=== PATIENT | male | born 1955 | race Caucasian/White ===

== ENCOUNTER 2017-01-07 06:06 | Inpatient (IN) | payer BC ==
[2017-01-06 10:12] VITALS: BMI 28.1
[~2017-01-07 06:06] MED LIST: ALPRAZolam 0.25 MG TAB PO PRN; ALPRAZolam 0.5 MG TAB PO PRN; ASPIRIN 325 MG TAB PO STA; ATORVASTATIN 80 MG TAB PO STA; NITROGLYCERIN SL TABS 0.4 MG TAB SUBLINGUAL PRN; SODIUM CHLORIDE 0.9% 1,000 ML in EMPTY BAG 1 BAG IV ONE
[2017-01-07] MEDS ORDERED: SODIUM CHLORIDE 0.9% 1,000 ML IV ONE (06:35)
[2017-01-07] MEDS ORDERED: LIDOCAINE 2% INJ 20 MG/ML (20 ML MDV) ONE (07:15)
[2017-01-07] MEDS ORDERED: MIDAZOLAM 2 MG/2 ML VIAL ONE (07:32)
[2017-01-07] MEDS ORDERED: fentaNYL (PF) 50 MCG/ML 2 ML AMP ONE (07:33)
[2017-01-07] MEDS: MIDAZOLAM 2 MG/2 ML VIAL IVP ONE ×2 (07:35→08:00)
[2017-01-07] MEDS ORDERED: LIDOCAINE 2% INJ 20 MG/ML SQ ONE (07:35)
[2017-01-07] MEDS ORDERED: fentaNYL (PF) 50 MCG/ML 2 ML AMP IV ONE (07:36)
[2017-01-07] MEDS ORDERED: BIVALIRUDIN BOLUS 250 MG/50 ML IV ONE (07:55)
[2017-01-07] MEDS ORDERED: BIVALIRUDIN 250 MG in SODIUM CHLORIDE 0.9% 50 ML IV ONE (08:10)
--- NOTE | 2017-01-07 08:11 | CC ---
DATE OF SERVICE: INDICATION: Unstable angina. PROCEDURE NOTE: After obtaining informed consent, left heart catheterization and coronary angiogram were performed via the right femoral artery using standard Stacy catheters. Patient tolerated the procedure well without any obvious immediate complications. FINDINGS: 1. HEMODYNAMICS: Left ventricular end-diastolic pressure is 14 to 16 mm. There is no significant gradient across the aortic valve. 2. LEFT VENTRICULOGRAM: Left ventriculogram was not performed. 3. ANGIOGRAPHIC DATA: LEFT MAIN CORONARY ARTERY: Left main coronary artery appears calcified but is free of stenosis. It divides into left anterior descending coronary artery and circumflex coronary artery. LAD shows a 95% focal stenosis in its midportion just proximal to the third diagonal branch. The first and second diagonal branches are free of significant stenosis. There is a mild atherosclerotic plaque in the proximal LAD also. Circumflex coronary artery is a nondominant vessel, shows a 50% to 60% stenosed in its ostial portion and 40% to 50% stenosed in its midportion. Right coronary artery is a large dominant vessel and is free of significant stenosis. CONCLUSION: A 90% stenosis involving mid left anterior descending artery with an ostial circumflex coronary artery disease that is a nondominant vessel. I reviewed angiographic data with the patient and discuss treatment options and I had Dr. Benz, the on-call technology architect review the angiographic data. The plan at this stage is to proceed with angioplasty of mid LAD, understanding that it is both complex and high risk given the heavily calcified vessel and if patient does well with this, will manage him medically and see how his symptoms evolve.
[2017-01-07] MEDS ORDERED: NITROGLYCERIN SL TABS 0.4 MG TAB SUBLINGUAL PRN ×2 (08:16→17:39)
[2017-01-07] MEDS ORDERED: MAG HYDROX/AL HYDROX/SIMETH 30 ML CUP PO PRN (08:16)
[2017-01-07] MEDS ORDERED: ATROPINE SULFATE 0.1 MG/ML 10ML SYRINGE IV PRN (08:16)
[2017-01-07] MEDS ORDERED: RX INFO: IV CONTRAST WAS GIVEN 1 EACH MISC MISCELLANE PRN (08:16)
[2017-01-07] MEDS ORDERED: ZOLPIDEM 5 MG TAB PO PRN (08:16)
[2017-01-07] MEDS ORDERED: IOHEXOL 350 MG/ML 100 ML BOTTLE INJ ONE (08:25)
[2017-01-07] MEDS ORDERED: SODIUM CHLORIDE 0.9% 1,000 ML IV SCH (08:30)
[2017-01-07] MEDS ORDERED: HEPARIN SODIUM,PORCINE 5,000 UNIT/ML 1 ML VIAL IV PRN (08:53)
--- NOTE | 2017-01-07 09:18 | PTCA ---
DATE OF SERVICE: 01/07/2017 PERFORMING PHYSICIAN: Gilbert Benz MD, customer support analyst. PROCEDURE PERFORMED: Attempted balloon angioplasty of the proximal left anterior descending artery. INDICATION: This is a pleasant, 61-year-old gentleman who sees Dr. Villalobos as an outpatient who was experiencing chest discomfort consistent with unstable angina. He underwent a heart catheterization by Dr. Villalobos and was found to have a critical proximal LAD disease, appeared to be in the range of 99% with also intermediate disease involving the left circumflex in the proximal and midportion. The decision was made toward percutaneous coronary intervention of the LAD lesion. APPROACH: Right common femoral artery. COMPLICATIONS: None. LEVEL OF SEDATION: Moderate with a duration of sedation of about 20 minutes. PROCEDURE DESCRIPTION: After diagnostic heart catheterization was performed by Dr. Villalobos and after reviewing the angiogram, we decided to pursue with an intervention on the LAD. Anticoagulation was initiated using Angiomax. Subsequently, I took an XB35 LAD guide and the left main was engaged. A whisper wire was used to wire the left anterior descending artery. Subsequently, I tried to advance 2.5 x 12 mm balloon across the proximal LAD just proximal to the lesion and I was unable to. The balloon did not even reach the lesion. That area proximal to the lesion was tortuous and heavily calcified. At that point, I decided to abort the procedure and stop and send the patient to have bypass surgery. CONCLUSION: Attempted balloon angioplasty of a critical proximal left anterior descending artery , heavily calcified and eccentric lesion. POSTPROCEDURE MANAGEMENT: 1. We will discuss with the patient the option of coronary artery bypass grafting. 2. Keeping the patient overnight in the hospital. 3. Follow up with the patient.
[2017-01-07] MEDS ORDERED: ACETAMINOPHEN TAB 325 MG TAB PO STA (09:26)
[2017-01-07 09:42] LABS: Basophils % (A) 1 %; CH 33.3; CHCM 34.6; Eosinophils # (A) 0.2 k/uL (0-0.7); Eosinophils % (A) 3 %; HCT 39.5 % (39.0-53.0); HDW 2.52; HGB 13.5 gm/dL (13.0-17.5); Luc # (Auto) 0.14; Luc % (Auto) 3; Lymphocytes # (A) 1.8 k/uL (1.0-4.8); Lymphocytes % (A) 36 %; MCH 33.1 pg (25.0-35.0); MCHC 34.3 g/dL (31.0-37.0); MCV 96.6 fL (80.0-100.0); Mean Platelet Volume 7.3; Monocytes # (A) 0.3 k/uL (0-1.0); Monocytes % (A) 6 %; Neutrophils # (A) 2.6 k/uL (1.3-7.7); Neutrophils % (A) 52 %; RBC 4.09 m/uL (4.30-5.90); RDW 12.7 % (11.5-15.5); WBC (Perox) 5.22
[2017-01-07 09:52] LABS: INR 1.3 (<1.1); Partial Thromboplastin Time 40.6 sec (22.0-30.0); Prothrombin Time 12.6 sec (9.0-12.0)
[2017-01-07] MEDS: HEPARIN SODIUM,PORCINE/D5W PMX 25,000 UNIT in DEXTROSE/WATER 1 500ML.BAG IV SCH ×2 (10:44→10:52)
[2017-01-07] MEDS: HYDROcodone/APAP 5-325MG 1 EACH TAB PO PRN (13:37)
[2017-01-07] MEDS ORDERED: KETOROLAC 30 MG/ML 1 ML VIAL IVP PRN (14:42)
[2017-01-07] MEDS ORDERED: MD COMMUNICATION TO PHARMACY 1 EACH MISC PO ONE ×4 (14:43)
--- NOTE | 2017-01-07 15:04 | P.GSCN ---
History of Present Illness Consult date: 01/07/17 Reason for Consult: evaluation for CABG Requesting physician: Vishnu Villalobos History of present illness: Patient is a 61-year-old gentleman with strong family history of premature coronary artery disease with recent episode of chest pain initially evaluated at the [facility] where he was ruled out. Patient had seen Dr. Medina for follow-up as his primary care was out of town. Patient was referred to Dr. Villalobos. Patient underwent cardiac catheterization today that showed significant mid LAD disease. PTCA stenting was attempted but was not successful in view of heavy calcification. Cardiothoracic surgical consult was called. Review of Systems - Cardiovascular Reports high blood pressure - Musculoskeletal Reports low back pain - Neurological Neurologic Comment(s): Anxiety Past Medical History Past Medical History: Chest Pain / Angina, Hyperlipidemia, Hypertension (recent ) Additional Past Medical History / Comment(s): chest pressure, Was at [facility] ER & overnight Dec 2016 nausea and lightheadedness-B/p 255/165,abn stress test History of Any Multi-Drug Resistant Organisms: None Reported Past Surgical History: Orthopedic Surgery Additional Past Surgical History / Comment(s): right knee Past Anesthesia/Blood Transfusion Reactions: No Reported Reaction Additional Past Anesthesia/Blood Transfusion Reaction / Comm: no hx blood transfusion Past Psychological History: No Psychological Hx Reported Smoking Status: Never smoker Past Alcohol Use History: Occasional Past Drug Use History: None Reported - Past Family History Mother Family Medical History: Dementia Additional Family Medical History / Comment(s): at age 95 Father Family Medical History: Cancer Additional Family Medical History / Comment(s): at age 59 Brother(s) Family Medical History: Coronary Artery Disease (CAD), CVA/TIA Additional Family Medical History / Comment(s): Brothers x2 CABG Sister(s) Family Medical History: CVA/TIA Medications and Allergies Home Medications Medication Instructions Recorded Confirmed Type Aspirin 81 mg PO DAILY 05/15/16 01/07/17 History Cetirizine HCl [Zyrtec] 10 mg PO DAILY 05/15/16 01/07/17 History ALPRAZolam [Xanax] 0.25 mg PO TID PRN 01/06/17 01/07/17 History Atorvastatin (Unk Dose) 10 mg PO DAILY 01/06/17 01/07/17 History Nitroglycerin Sl Tabs [Nitrostat] 0.4 mg SUBLINGUAL Q5M PRN 01/06/17 01/06/17 History Atenolol [Tenormin] 25 mg PO DAILY 01/07/17 01/07/17 History Isosorbide Mononitrate ER [Imdur] 1 tab PO DAILY 01/07/17 01/07/17 History LORazepam [Ativan] 0.5 mg PO BID PRN 01/07/17 01/07/17 History Allergies Allergy/AdvReac Type Severity Reaction Status Date / Time No Known Allergies Allergy Verified 01/06/17 10:02 Surgical - Exam Vital Signs Temp Pulse Resp BP Pulse Ox 97.9 F 59 L 16 115/73 93 L 01/07/17 06:26 01/07/17 06:26 01/07/17 06:26 01/07/17 06:26 01/07/17 06:26 - Rectum Deferred Patient has a negative modified Derek's test on the left side. He has no varicose veins in his lower extremities. No epigastric hernia. Results - Labs Comments: Creatinine done as an outpatient is 0.7. 01/07/17 09:32 Abnormal Lab Results - Last 24 Hours (Table) 01/07/17 01/07/17 Range/Units 09:32 09:32 RBC 4.09 L (4.30-5.90) m/uL PT 12.6 H (9.0-12.0) sec APTT 40.6 H (22.0-30.0) sec - Imaging Additional studies: 2-D echo performed at Dr. Villalobos's office on 01/05/2017 shows an ejection fraction of 50-55% with mild concentric left ventricular hypertrophy. There is hypokinesis of the septum at the base. Moderate dilatation left atrium. Mild mitral valve regurgitation with no other significant valvular abnormalities. Cardiac catheterization performed today showed a calcified proximal LAD with severe stenosis after the takeoff of several large diagonal arteries. The circumflex artery is a small system with moderate stenosis. RCA has a mid plaque with no significant stenosis. Assessment and Plan Plan: 61's old gentleman with significant LAD disease with unsuccessful PTCA attempt. I had a lengthy discussion with the patient in presence of his and brother. Decision was made to proceed with plans for off-pump coronary artery bypass grafting to the LAD in AM 01/08/2017. After discussing the case with cardiology, no plans to bypass the small circumflex branch that could be stented in the future if clinically significant. Again the risks benefits and alternative were discussed with the patient and the family they all understood them and agreed to proceed Thank you for the privilege of this consult
[2017-01-07 15:29] LABS: Basophils % (A) 1 %; CH 33.6; CHCM 34.6; Eosinophils # (A) 0.1 k/uL (0-0.7); Eosinophils % (A) 2 %; HCT 39.8 % (39.0-53.0); HDW 2.51; HGB 13.5 gm/dL (13.0-17.5); Luc # (Auto) 0.13; Luc % (Auto) 2; Lymphocytes # (A) 1.9 k/uL (1.0-4.8); Lymphocytes % (A) 29 %; MCH 33.1 pg (25.0-35.0); MCHC 33.9 g/dL (31.0-37.0); MCV 97.4 fL (80.0-100.0); Mean Platelet Volume 7.4; Monocytes # (A) 0.4 k/uL (0-1.0); Monocytes % (A) 6 %; Neutrophils % (A) 61 %; RBC 4.09 m/uL (4.30-5.90); RDW 12.6 % (11.5-15.5); WBC 6.6 k/uL (3.8-10.6); WBC (Perox) 7.53
[2017-01-07 15:40] LABS: ALT 47 U/L (21-72); AST 29 U/L (17-59); Alkaline Phosphatase 64 U/L (38-126); Anion Gap 7 mmol/L; Blood Urea Nitrogen 14 mg/dL (9-20); Calcium 8.6 mg/dL (8.4-10.2); Carbon Dioxide 24 mmol/L (22-30); Chloride 107 mmol/L (98-107); Cholesterol 156 mg/dL (<200); Glucose 105 mg/dL (74-99); HDL Cholesterol 57 mg/dL (40-60); Magnesium 1.9 mg/dL (1.6-2.3); Non-African American GFR(MDRD) >60 (>60 ml/min/1.73 sqM); Potassium 3.8 mmol/L (3.5-5.1); Sodium 138 mmol/L (137-145); Total Bilirubin 0.8 mg/dL (0.2-1.3); Triglycerides 101 mg/dL (<150)
--- NOTE | 2017-01-07 15:51 | US ---
EXAMINATION TYPE: US carotid duplex BILAT DATE OF EXAM: 01/07/2017 3:36 PM COMPARISON: NONE CLINICAL HISTORY: pre-op cabg. EXAM MEASUREMENTS: RIGHT: Peak Systolic Velocity (PSV) cm/sec ----- Right CCA: 85.7 ----- Right ICA: 98.7 ----- Right ECA: 90.0 ICA/CCA ratio: 1.2 RIGHT: End Diastole cm/sec ----- Right CCA: 27.5 ----- Right ICA: 43.5 ----- Right ECA: 0 LEFT: Peak Systolic Velocity (PSV) cm/sec ----- Left CCA: 77.5 ----- Left ICA: occluded ----- Left ECA: 108.2 ICA/CCA ratio: LEFT: End Diastole cm/sec ----- Left CCA: 7.6 ----- Left ICA: occluded ----- Left ECA: 5.7 VERTEBRALS (direction of flow): Right Vertebral: Antegrade Left Vertebral: Antegrade Findings: Atherosclerotic changes in right bulb, no stenosis on right. Left ICA occluded IMPRESSION: 1. Occlusion of the left ICA. 2. No significant hemodynamic stenosis involving the right ICA. There is mild to moderate atheroscler otic plaque. A Yellow message has been communicated to Arlene Antonio via the [employer] Critical Result system on 01/07/2017 3:48 PM, Message ID [id number].
[2017-01-07 16:07] LABS: Hepatitis B Surface Ag Index 0.06
[2017-01-07 16:13] LABS: Hepatitis B Core IgM Index 0.05
[2017-01-07 16:22] LABS: INR 1.1 (<1.1); Partial Thromboplastin Time 23.7 sec (22.0-30.0)
[2017-01-07 16:25] LABS: Hepatitis C Virus IgG Index 0.01
[2017-01-07 16:32] LABS: Hepatitis C Virus IgG Ab Negative (Negative)
--- NOTE | 2017-01-07 17:18 | P.CNPUL ---
History of Present Illness Consult date: 01/07/17 Requesting physician: Theresa Felix Reason for consult: chest pain Chief complaint: Chest pain History of present illness: This is a 61-year-old white male with rhonchi family history of premature coronary artery disease, patient had recently few episodes of lightheadedness, diaphoresis, chest pain, and he was evaluated at the [facility]. Workup in the ER was nondiagnostic, patient was discharged home. However he continued to have these episodes, and apparently his brother is a friend of Dr. Medina who recommended evaluation by Dr. Medina. After he was seen in our office , patient was referred to see Dr. Peters who saw him today, and he underwent EKG, echocardiogram, and a stress test which he failed. Patient then underwent cardiac catheterization, and he was found to have significant mid LAD disease. PTCA was attempted, but was unsuccessful. Hence cardiothoracic surgery was consulted, and the patient is scheduled to undergo CABG for one vessel disease tomorrow in a.m. by . Patient is a nonsmoker he drinks 2 rojelio per week, and he has no significant other medical history except for anginal symptoms as noted above, hypertension, hyperlipidemia, and strong family history of premature coronary artery disease. Patient was also found recently to have significant blockage in the left carotid artery and that is dressed in the near future. Presently patient is relatively asymptomatic, no cough no wheezing no shortness of breath no chest pain. Review of Systems 12 point review of systems were obtained, please refer to history of the present illness. Past Medical History Past Medical History: Chest Pain / Angina, Hyperlipidemia, Hypertension (recent ) Additional Past Medical History / Comment(s): chest pressure, Was at [facility] ER & overnight Dec 2016 nausea and lightheadedness-B/p 255/165,abn stress test History of Any Multi-Drug Resistant Organisms: None Reported Past Surgical History: Orthopedic Surgery Additional Past Surgical History / Comment(s): right knee Past Anesthesia/Blood Transfusion Reactions: No Reported Reaction Additional Past Anesthesia/Blood Transfusion Reaction / Comment(s): no hx blood transfusion Past Psychological History: No Psychological Hx Reported Smoking Status: Never smoker Past Alcohol Use History: Occasional Past Drug Use History: None Reported - Past Family History Mother Family Medical History: Dementia Additional Family Medical History / Comment(s): at age 95 Father Family Medical History: Cancer Additional Family Medical History / Comment(s): at age 59 Brother(s) Family Medical History: Coronary Artery Disease (CAD), CVA/TIA Additional Family Medical History / Comment(s): Brothers x2 CABG Sister(s) Family Medical History: CVA/TIA Medications and Allergies Home Medications Medication Instructions Recorded Confirmed Type Aspirin 81 mg PO DAILY 05/15/16 01/07/17 History Cetirizine HCl [Zyrtec] 10 mg PO DAILY 05/15/16 01/07/17 History ALPRAZolam [Xanax] 0.25 mg PO TID PRN 01/06/17 01/07/17 History Nitroglycerin Sl Tabs [Nitrostat] 0.4 mg SUBLINGUAL Q5M PRN 01/06/17 01/07/17 History Atenolol [Tenormin] 25 mg PO DAILY 01/07/17 01/07/17 History Atorvastatin [Lipitor] 10 mg PO DAILY 01/07/17 01/07/17 History Isosorbide Mononitrate ER [Imdur] 30 mg PO DAILY 01/07/17 01/07/17 History LORazepam [Ativan] 0.5 mg PO BID PRN 01/07/17 01/07/17 History Tdunozx-Zbtlthk-Vzelmh-Dime 1 applic TOPICAL DIRECTED PRN 01/07/17 01/07/17 History [Blistex Lip Ointment] Multivitamin [Men's Multi-Vitamin] 1 tab PO DAILY 01/07/17 01/07/17 History Saline Nasal [place] 1 spray EA NOSTRIL DAILY PRN 01/07/17 01/07/17 History Tetrahydrozoline 0.05% Ophth 1 drop BOTH EYES QID PRN 01/07/17 01/07/17 History [Visine Eye Drops] Allergies Allergy/AdvReac Type Severity Reaction Status Date / Time No Known Allergies Allergy Verified 01/07/17 15:47 Physical Exam Vitals: Vital Signs Temp Pulse Pulse Pulse Resp BP BP 01/07/17 16:45 65 18 121/72 01/07/17 16:00 64 18 115/72 01/07/17 15:45 62 18 109/67 01/07/17 14:45 68 18 121/73 01/07/17 14:15 71 18 124/72 01/07/17 13:45 65 18 116/69 01/07/17 13:30 62 18 112/65 01/07/17 13:15 51 L 18 117/77 01/07/17 13:00 50 L 18 96/68 01/07/17 12:30 50 L 16 117/78 01/07/17 12:00 97.1 F L 54 L 18 117/78 01/07/17 11:01 59 L 16 144/79 01/07/17 10:01 59 L 16 111/56 01/07/17 09:31 58 L 16 104/76 01/07/17 09:01 58 L 16 117/69 01/07/17 08:46 58 L 16 114/70 01/07/17 08:31 58 L 16 113/73 01/07/17 06:26 97.9 F 59 L 16 115/73 113/68 BP Pulse Ox 01/07/17 16:45 96 01/07/17 16:00 96 01/07/17 15:45 99 01/07/17 14:45 97 01/07/17 14:15 98 01/07/17 13:45 97 01/07/17 13:30 97 01/07/17 13:15 96 01/07/17 13:00 97 01/07/17 12:30 96 01/07/17 12:00 99 01/07/17 11:01 160/90 95 01/07/17 10:01 138/68 95 01/07/17 09:31 140/79 96 01/07/17 09:01 121/71 97 01/07/17 08:46 124/80 98 01/07/17 08:31 122/60 95 01/07/17 06:26 93 L Intake and Output 01/07/17 01/07/17 01/07/17 06:59 14:59 22:59 Intake Total 50 167.94 Output Total 300 Balance 50 -132.06 Intake: IV 50 167.94 Output: Urine 300 Physical Exam: Revealed a 61-year-old in no distress HEENT:[Neck is supple.] [No neck masses.] [No thyromegaly.] [No JVD.] Chest: [Clear throughout, no crackles, no rhonchi, no wheezes.] Cardiac Exam: [Normal S1 and S2, no S3 gallop, no murmur.] Abdomen: [Soft, nontender, no megaly, no rebound, no guarding, normal bowel sounds.] Extremities: [No clubbing, no edema, no cyanosis.] Neurological Exam: [No focal neurologic deficit.] Results - Laboratory Findings CBC and BMP: 01/07/17 15:03 01/07/17 15:03 PT/INR, D-dimer PT 11.0 sec (9.0-12.0) 01/07/17 15:03 INR 1.1 (<1.1) 01/07/17 15:03 Abnormal lab findings: Abnormal Labs 01/07/17 01/07/17 01/07/17 09:32 09:32 15:03 RBC 4.09 L 4.09 L PT 12.6 H APTT 40.6 H Glucose Total Protein Albumin 01/07/17 15:03 RBC PT APTT Glucose 105 H Total Protein 6.0 L Albumin 3.4 L Assessment and Plan Plan: Impression: 1 significant LAD disease with unsuccessful PTCA attempt. 2 family history of premature coronary artery disease 3 history of significant left carotid artery disease 4 history of hypertension, Recommendation: Agree with the present treatment plan,, patient does not have any underlying pulmonary obstructive lung disease, never smoked, patient will be instructed on incentive spirometry, and I will recommend a preoperative chest x-ray which will be done today. Time with Patient: Greater than 30
[2017-01-07] MEDS ORDERED: LORazepam 0.5 MG TAB PO PRN (17:39)
[2017-01-07] MEDS ORDERED: TETRAHYDROZOLINE 0.05% OPHTH DROPS 15 ML BTL BOTH EYES PRN (17:39)
[2017-01-07] MEDS ORDERED: SODIUM CHLORIDE 0.65% NASAL SPRAY 44 ML BTL NASAL PRN (17:39)
[2017-01-07] MEDS ORDERED: MENTHOL-CAMPHOR-PHENOL LIP OINTMENT 0.35 OZ TUBE TOPICAL PRN (17:39)
--- NOTE | 2017-01-07 17:42 | P.CONS ---
History of Present Illness - History of Present Illness The patient is a 61-year-old gentleman of Dr. Mccallum for whom I'm covering. This gentleman was being worked up for chest pain. Apparently patient had a episode of chest discomfort while he was driving and actually stopped at a hospital in [place]. He received nitroglycerin and Ativan and some subsequently his pain was relieved. Apparent initial workup in the emergency room and overnight was negative. Patient apparently returned back to the [place] area where he had further discomfort and saw a evp business development and was referred to Dr. Villalobos from cardiology and underwent a exercise tests which caused him further pain which subsequently led to a heart catheterization which revealed a significant mid LAD disease which was unable to be angioplastied secondary to the hardness of the blood vessel. Patient apparently scheduled for bypass surgery tomorrow. Past medical history: Patient does have a history of hyperlipidemia. The angina is recent as described above. He has also had some elevated blood pressures more recently. No history of myocardial infarction or diabetes or stroke. Patient has had previous right knee surgery. Medications: No known ALLERGIES. Patient presently taking Lipitor 10 mg daily Atenolol 25 mg daily Aspirin 81 mg daily Ativan 0.5 twice a day as needed and Isorbid mononitrate 30 mg daily. Review of systems: Basically is in the history of present illness. He denies any headaches. Presently no nausea and vomiting. No urinary or bowel symptoms. No hematuria or hematochezia. No unusual leg edema or pain. Social history: No history of smoking or any excessive alcohol intake. He lives locally in the area here. Family history: Apparently his mother had dementia age 95. Father had cancer at 59. Patient does have 2 brothers at fairly young ages that have had bypass surgery and one that has had strokes. Physical examination: Patient is alert and oriented. Well-developed. Vital signs reveal a pulse of 65 with a respirations 18 and blood pressure 121/ 72. He is 96% saturated on room air. Head and neck exam was unremarkable. No definite adenopathy or thyromegaly or definite bruits detected. Lungs were clear to auscultation. Heart tones were regular without murmurs or rubs appreciated. Abdomen is soft and nontender. No organomegaly. Scrotal and rectal exam deferred. No edema. No focal neurological deficits. Impressions and plans: Overall this 61-year-old gentleman with a strong family history and hyperlipidemia and recent hypertension with unstable angina picture and a diagnosis of coronary artery disease based on catheterization. Significant left anterior descending disease that was unable to be angioplastied. Plans are for bypass surgery. Patient is aware of risks versus benefits. Past Medical History Past Medical History: Chest Pain / Angina, Hyperlipidemia, Hypertension (recent ) Additional Past Medical History / Comment(s): chest pressure, Was at [facility] ER & overnight Dec 2016 nausea and lightheadedness-B/p 255/165,abn stress test History of Any Multi-Drug Resistant Organisms: None Reported Past Surgical History: Orthopedic Surgery Additional Past Surgical History / Comment(s): right knee Past Anesthesia/Blood Transfusion Reactions: No Reported Reaction Additional Past Anesthesia/Blood Transfusion Reaction / Comm: no hx blood transfusion Past Psychological History: No Psychological Hx Reported Smoking Status: Never smoker Past Alcohol Use History: Occasional Past Drug Use History: None Reported - Past Family History Mother Family Medical History: Dementia Additional Family Medical History / Comment(s): at age 95 Father Family Medical History: Cancer Additional Family Medical History / Comment(s): at age 59 Brother(s) Family Medical History: Coronary Artery Disease (CAD), CVA/TIA Additional Family Medical History / Comment(s): Brothers x2 CABG Sister(s) Family Medical History: CVA/TIA Medications and Allergies Home Medications Medication Instructions Recorded Confirmed Type Aspirin 81 mg PO DAILY 05/15/16 01/07/17 History Cetirizine HCl [Zyrtec] 10 mg PO DAILY 05/15/16 01/07/17 History ALPRAZolam [Xanax] 0.25 mg PO TID PRN 01/06/17 01/07/17 History Nitroglycerin Sl Tabs [Nitrostat] 0.4 mg SUBLINGUAL Q5M PRN 01/06/17 01/07/17 History Atenolol [Tenormin] 25 mg PO DAILY 01/07/17 01/07/17 History Atorvastatin [Lipitor] 10 mg PO DAILY 01/07/17 01/07/17 History Isosorbide Mononitrate ER [Imdur] 30 mg PO DAILY 01/07/17 01/07/17 History LORazepam [Ativan] 0.5 mg PO BID PRN 01/07/17 01/07/17 History Jwnymik-Kxnxhwp-Cslxai-Dime 1 applic TOPICAL DIRECTED PRN 01/07/17 01/07/17 History [Blistex Lip Ointment] Multivitamin [Men's Multi-Vitamin] 1 tab PO DAILY 01/07/17 01/07/17 History Saline Nasal [place] 1 spray EA NOSTRIL DAILY PRN 01/07/17 01/07/17 History Tetrahydrozoline 0.05% Ophth 1 drop BOTH EYES QID PRN 01/07/17 01/07/17 History [Visine Eye Drops] Allergies Allergy/AdvReac Type Severity Reaction Status Date / Time No Known Allergies Allergy Verified 01/07/17 15:47 Physical Exam Vitals: Vital Signs Temp Pulse Pulse Pulse Resp BP BP 01/07/17 16:45 65 18 121/72 01/07/17 16:00 64 18 115/72 01/07/17 15:45 62 18 109/67 01/07/17 14:45 68 18 121/73 01/07/17 14:15 71 18 124/72 01/07/17 13:45 65 18 116/69 01/07/17 13:30 62 18 112/65 01/07/17 13:15 51 L 18 117/77 01/07/17 13:00 50 L 18 96/68 01/07/17 12:30 50 L 16 117/78 01/07/17 12:00 97.1 F L 54 L 18 117/78 01/07/17 11:01 59 L 16 144/79 01/07/17 10:01 59 L 16 111/56 01/07/17 09:31 58 L 16 104/76 01/07/17 09:01 58 L 16 117/69 01/07/17 08:46 58 L 16 114/70 01/07/17 08:31 58 L 16 113/73 01/07/17 06:26 97.9 F 59 L 16 115/73 113/68 BP Pulse Ox 01/07/17 16:45 96 01/07/17 16:00 96 01/07/17 15:45 99 01/07/17 14:45 97 01/07/17 14:15 98 01/07/17 13:45 97 01/07/17 13:30 97 01/07/17 13:15 96 01/07/17 13:00 97 01/07/17 12:30 96 01/07/17 12:00 99 01/07/17 11:01 160/90 95 01/07/17 10:01 138/68 95 01/07/17 09:31 140/79 96 01/07/17 09:01 121/71 97 01/07/17 08:46 124/80 98 01/07/17 08:31 122/60 95 01/07/17 06:26 93 L Intake and Output 01/07/17 01/07/17 01/07/17 06:59 14:59 22:59 Intake Total 50 167.94 Output Total 300 Balance 50 -132.06 Intake: IV 50 167.94 Output: Urine 300 Results CBC & Chem 7: 01/07/17 15:03 01/07/17 15:03 Labs: Abnormal Lab Results - Last 24 Hours (Table) 01/07/17 01/07/17 01/07/17 Range/Units 09:32 09:32 15:03 RBC 4.09 L 4.09 L (4.30-5.90) m/uL PT 12.6 H (9.0-12.0) sec APTT 40.6 H (22.0-30.0) sec Glucose (74-99) mg/dL Total Protein (6.3-8.2) g/dL Albumin (3.5-5.0) g/dL 01/07/17 Range/Units 15:03 RBC (4.30-5.90) m/uL PT (9.0-12.0) sec APTT (22.0-30.0) sec Glucose 105 H (74-99) mg/dL Total Protein 6.0 L (6.3-8.2) g/dL Albumin 3.4 L (3.5-5.0) g/dL
[2017-01-07] MEDS ORDERED: HYDROmorphone 1 MG/ML 1 ML SYRINGE IVP PRN (17:45)
[2017-01-07] MEDS: ISOSORBIDE MONONITRATE ER 30 MG TAB.ER.24H PO SCH (18:39)
[2017-01-07 19:55] LABS: Appearance,Urine Clear (Clear); Bacteria,Urine Occasional /hpf; Bilirubin,Urine Negative (Negative); Glucose,Urine (UA) Negative (Negative); Ketones,Urine 1+ (Negative); Leukocyte Esterase,Urine Trace (Negative); Mucus,Urine Rare /hpf; Nitrite,Urine Negative (Negative); PH, Urine 6.5 (5.0-8.0); Particle Count 1641; Protein,Urine Negative (Negative); RBC,Urine 1 /hpf (0-5); Specific Gravity,Urine 1.036 (1.001-1.035); UA Billing (MACRO vs. MICRO) MICRO; Urobilinogen,Urine <2.0 mg/dL (<2.0); WBC,Urine 2 /hpf (0-5)
--- NOTE | 2017-01-07 20:56 | XR ---
EXAMINATION TYPE: XR chest 1V portable DATE OF EXAM: 01/07/2017 5:36 PM COMPARISON: NONE HISTORY: Pre-op CABG TECHNIQUE: Single frontal view of the chest is obtained. FINDINGS: There is no focal air space opacity, pleural effusion, or pneumothorax seen. The cardiac silhouette size is within normal limits. The osseous structures are intact. IMPRESSION: No acute process.
[2017-01-07 21:38] LABS: Hemoglobin A1C 5.5 % (4.2-6.1)
[2017-01-07] MEDS: MUPIROCIN 2% OINT 22 GM TUBE NASAL SCH (22:43)
[2017-01-08] MEDS: HYDROcodone/APAP 5-325MG 1 EACH TAB PO PRN (02:21)
[2017-01-08] MEDS ORDERED: CALCIUM CHLORIDE 100 MG/ML 10 ML SYRINGE IVP ONE (05:00)
[2017-01-08] MEDS ORDERED: INSULIN REGULAR 100 UNIT in SODIUM CHLORIDE 0.9% 100 ML IV ONE (05:00)
[2017-01-08] MEDS ORDERED: DEXTROSE 5% IN WATER 1,000 ML with POTASSIUM CHLORIDE 25 MEQ, SODIUM CHLORIDE 4MEQ/ML V... IV SCH ×6 (05:00)
[2017-01-08] MEDS ORDERED: SODIUM BICARB 8.4% 50 ML SYR (1 MEQ/ML) IV ONE (05:00)
[2017-01-08] MEDS ORDERED: NITROGLYCERIN-D5W PMX 25 MG/250 ML BTL IV ONE (05:00)
[2017-01-08] MEDS ORDERED: ALBUMIN HUMAN 5% 500 ML in EMPTY BAG 1 BAG IVPB ONE ×6 (05:00)
[2017-01-08] MEDS ORDERED: ceFAZolin 2 GM in SODIUM CHLORIDE 0.9% 30 ML IVPB ONE (05:00)
[2017-01-08] MEDS ORDERED: ASPIRIN 325 MG TAB PO ONE (05:00)
[2017-01-08] MEDS ORDERED: DILTIAZEM 125 MG in SODIUM CHLORIDE 0.9% 100 ML IV ONE (05:00)
[2017-01-08] MEDS ORDERED: AMINOCAPROIC ACID 5,000 MG in DEXTROSE 5% IN WATER 50 ML IV ONE ×4 (05:00)
[2017-01-08] MEDS ORDERED: NOREPINEPHRINE 4 MG in SODIUM CHLORIDE 0.9% 250 ML IV ONE (05:00)
[2017-01-08] MEDS ORDERED: PROTAMINE SULFATE 10 MG/ML 25 ML VIAL IV ONE (05:00)
[2017-01-08] MEDS ORDERED: PROTAMINE SULFATE 250 MG in EMPTY BAG 1 BAG IV ONE (05:00)
[2017-01-08] MEDS ORDERED: MANNITOL 25% 12.5 GM/50 ML VIAL IV ONE ×2 (05:00)
[2017-01-08] MEDS ORDERED: PAPAVERINE 360 MG in SODIUM CHLORIDE 0.9% 90 ML IV ONE (05:00)
[2017-01-08] MEDS ORDERED: ceFAZolin 2,000 MG in SODIUM CHLORIDE 0.9% 30 ML IVPB ONE (05:00)
[2017-01-08] MEDS ORDERED: ceFAZolin 1,000 MG in SODIUM CHLORIDE 0.9% IRRIGATIO 1,000 ML IRRIGATION ONE (05:00)
[2017-01-08] MEDS ORDERED: METOPROLOL TARTRATE 12.5 MG TAB PO ONE ×2 (05:00→21:00)
[2017-01-08] MEDS ORDERED: ALBUMIN HUMAN 25% 50 ML in EMPTY BAG 1 BAG IVPB ONE (05:00)
[2017-01-08] MEDS ORDERED: NITROGLYCERIN-D5W PMX 50 MG in DEXTROSE/WATER 1 250ML.BAG IV ONE (05:00)
[2017-01-08] MEDS ORDERED: LACTATED RINGERS 1,000 ML IV SCH (05:00)
[2017-01-08] MEDS ORDERED: HEPARIN SODIUM 1,000 UNIT/ML VIAL IV ONE (05:00)
[2017-01-08] MEDS ORDERED: HEPARIN SODIUM,PORCINE 5,000 UNIT in SODIUM CHLORIDE 0.9% 500 ML IV ONE (05:00)
[2017-01-08] MEDS ORDERED: CHLORHEXIDINE GLUCONATE 15 ML CUP MUCOUS MEM ONE (05:00)
[2017-01-08] MEDS ORDERED: PHENYLEPHRINE-0.9% NACL SYG 1 MG/10 ML SYRINGE IV ONE ×4 (05:00)
[2017-01-08] MEDS ORDERED: ATORVASTATIN 10 MG TAB PO ONE (05:00)
[2017-01-08] MEDS ORDERED: AMINOCAPROIC ACID 250 MG/ML 20 ML VIAL IV ONE (05:00)
[2017-01-08] MEDS ORDERED: MAGNESIUM SULFATE SYG 4.06 MEQ/ML SYRINGE IV ONE (05:00)
[2017-01-08] MEDS ORDERED: PROPOFOL 500 MG in EMPTY BAG 1 BAG IV ONE (05:00)
[2017-01-08] MEDS ORDERED: DEXTROSE 5% IN WATER 1,000 ML with POTASSIUM CHLORIDE 110 MEQ, MAGNESIUM SULFATE 16 MEQ... IV SCH ×5 (05:00)
[2017-01-08] MEDS ORDERED: SODIUM CHLORIDE 0.9% IRRIG 1,000 ML BTL IRRIGATION ONE (07:46)
[2017-01-08] MEDS ORDERED: MIDAZOLAM 2 MG/2 ML VIAL ONE (07:46)
[2017-01-08] MEDS ORDERED: ePHEDrine 50 MG/ML 1 ML AMP ONE (07:46)
[2017-01-08] MEDS ORDERED: VECURONIUM 10 MG VIAL IV ONE (07:46)
[2017-01-08] MEDS ORDERED: HEPARIN SODIUM 1,000 UNIT/ML VIAL ONE (07:46)
[2017-01-08] MEDS ORDERED: fentaNYL (PF) 50 MCG/ML 50 ML VIAL ONE (07:46)
[2017-01-08] MEDS ORDERED: HEPARIN SODIUM,PORCINE 10,000 UNIT/ML 1 ML VIAL ONE (07:46)
[2017-01-08] MEDS ORDERED: LIDOCAINE 2% SYG (PF) 100 MG/5 ML ONE (07:46)
[2017-01-08] MEDS ORDERED: PHENYLEPHRINE-0.9% NACL SYG 1 MG/10 ML SYRINGE ONE (07:46)
[2017-01-08] MEDS ORDERED: PROPOFOL 10 MG/ML 20 ML VIAL IV ONE (07:46)
[2017-01-08 08:22] LABS: Glucose,Whole Blood 104 mg/dL (75-99)
[2017-01-08] MEDS ORDERED: ASPIRIN 81 MG CHEW PO SCH (09:00)
[2017-01-08] MEDS ORDERED: ATENOLOL 25 MG TAB PO SCH (09:00)
[2017-01-08] MEDS ORDERED: ATORVASTATIN 10 MG TAB PO SCH (09:00)
[2017-01-08] MEDS ORDERED: LORATADINE 10 MG TAB PO SCH (09:00)
[2017-01-08 09:46] LABS: Glucose,Whole Blood 107 mg/dL (75-99)
[2017-01-08 11:03] LABS: Glucose,Whole Blood 107 mg/dL (75-99)
[2017-01-08] MEDS ORDERED: MULTIVITAMINS, THERA 1 EACH TAB PO SCH (12:00)
[2017-01-08 12:18] LABS: Glucose,Whole Blood 95 mg/dL (75-99)
[2017-01-08 12:25] LABS: Basophils % (A) 0 %; CHCM 34.7; Eosinophils # (A) 0.1 k/uL (0-0.7); Eosinophils % (A) 1 %; HCT 33.4 % (39.0-53.0); HDW 2.58; HGB 11.4 gm/dL (13.0-17.5); Luc # (Auto) 0.05; Luc % (Auto) 1; Lymphocytes # (A) 1.5 k/uL (1.0-4.8); Lymphocytes % (A) 15 %; MCH 32.6 pg (25.0-35.0); MCHC 34.2 g/dL (31.0-37.0); MCV 95.5 fL (80.0-100.0); Mean Platelet Volume 7.2; Monocytes # (A) 0.2 k/uL (0-1.0); Monocytes % (A) 2 %; Neutrophils # (A) 8.5 k/uL (1.3-7.7); Neutrophils % (A) 81 %; RDW 12.5 % (11.5-15.5); WBC 10.4 k/uL (3.8-10.6); WBC (Perox) 10.79
[2017-01-08 12:34] LABS: INR 1.2 (<1.1); Partial Thromboplastin Time 24.2 sec (22.0-30.0); Prothrombin Time 11.7 sec (9.0-12.0)
[2017-01-08] MEDS ORDERED: INSULIN REGULAR BOLUS (FROM DRIP BAG) IV PRN (12:35)
[2017-01-08] MEDS ORDERED: Phosphorus Replacement Protoco 1 EACH MISC MISCELLANE PRN (12:40)
[2017-01-08] MEDS ORDERED: Potassium Replacement Protocol 1 EACH MISC MISCELLANE PRN (12:40)
[2017-01-08] MEDS ORDERED: Magnesium Replacement Protocol 1 EACH MISC MISCELLANE PRN (12:40)
[2017-01-08] MEDS ORDERED: ASPIRIN 300 MG SUPP RECTAL ONE (12:40)
[2017-01-08] MEDS ORDERED: ALBUMIN HUMAN 5% 250 ML in EMPTY BAG 1 BAG IVPB PRN (12:40)
[2017-01-08] MEDS ORDERED: MORPHINE SULFATE 2 MG/ML SYRINGE IVP PRN (12:40)
[2017-01-08] MEDS ORDERED: BENZOCAINE/MENTHOL LOZENG 1 EACH LOZENGE MUCOUS MEM PRN (12:40)
[2017-01-08] MEDS ORDERED: CALCIUM GLUCONATE 2,000 MG in SODIUM CHLORIDE 0.9% 100 ML IVPB ONE (12:40)
[2017-01-08] MEDS ORDERED: INSULIN REGULAR 100 UNIT in SODIUM CHLORIDE 0.9% 100 ML IV SCH (12:45)
[2017-01-08 12:48] LABS: Ionized Calcium 4.9 mg/dL (4.5-5.3)
[2017-01-08 12:56] LABS: ABG HCO3 22 mmol/L (21-25); ABG PCO2 47 mmHg (35-45); ABG PH 7.29 (7.35-7.45); ABG PO2 248 mmHg (83-108)
--- NOTE | 2017-01-08 12:56 | XR ---
EXAMINATION TYPE: XR chest 1V portable DATE OF EXAM: 01/08/2017 12:48 PM HISTORY: Post Op CABG COMPARISON: 01/07/2017 TECHNIQUE: Single view of the chest is submitted. FINDINGS: Endotracheal tube, NG tube, SG catheter, mediastianal drains and chest tubes are appropriately placed . Post operative changes of CABG. No sizeable pneumothorax. Scattered Pleural-parencymal opacities may reflect atelectasis. The heart is not enlarged. IMPRESSION: 1. Post operative changes of CABG.
[2017-01-08 12:57] LABS: ABG TCO2 24 mmol/L (19-24)
[2017-01-08 13:00] LABS: ALT 37 U/L (21-72); AST 26 U/L (17-59); Alkaline Phosphatase 50 U/L (38-126); Anion Gap 8 mmol/L; Blood Urea Nitrogen 9 mg/dL (9-20); Calcium 7.7 mg/dL (8.4-10.2); Carbon Dioxide 23 mmol/L (22-30); Chloride 108 mmol/L (98-107); Glucose 96 mg/dL (74-99); Magnesium 2.2 mg/dL (1.6-2.3); Non-African American GFR(MDRD) >60 (>60 ml/min/1.73 sqM); Potassium 3.7 mmol/L (3.5-5.1); Sodium 139 mmol/L (137-145); Total Protein 5.3 g/dL (6.3-8.2)
[2017-01-08 13:02] LABS: Glucose,Whole Blood 97 mg/dL (75-99)
[2017-01-08 14:06] LABS: Glucose,Whole Blood 91 mg/dL (75-99)
[2017-01-08] MEDS ORDERED: POTASSIUM CHLORIDE 20 MEQ in WATER FOR INJECTION 1 100ML.BAG IVPB ONE (15:05)
[2017-01-08 15:10] LABS: Glucose,Whole Blood 98 mg/dL (75-99)
[2017-01-08] MEDS: CLEVIDIPINE BUTYRATE 25 MG in EMPTY BAG 1 BAG IV ONE ×2 (15:19→16:30)
[2017-01-08] MEDS: NITROGLYCERIN-D5W PMX 50 MG in DEXTROSE/WATER 1 250ML.BAG IV SCH (15:20)
[2017-01-08] MEDS: ceFAZolin 2 GM in SODIUM CHLORIDE 0.9% 100 ML IVPB SCH ×2 (15:20→17:34)
[2017-01-08] MEDS: LACTATED RINGERS 1,000 ML IV SCH (15:21)
--- NOTE | 2017-01-08 15:22 | P.PN ---
Subjective Principal diagnosis: Coronary artery disease This is a 61-year-old white male with rhonchi family history of premature coronary artery disease, patient had recently few episodes of lightheadedness, diaphoresis, chest pain, and he was evaluated at the [facility]. Workup in the ER was nondiagnostic, patient was discharged home. However he continued to have these episodes, and apparently his brother is a friend of Dr. Medina who recommended evaluation by Dr. Medina. After he was seen in our office , patient was referred to see Dr. Villalobos who saw him today, and he underwent EKG , echocardiogram, and a stress test which he failed. Patient then underwent cardiac catheterization, and he was found to have significant mid LAD disease. PTCA was attempted, but was unsuccessful. Hence cardiothoracic surgery was consulted, and the patient is scheduled to undergo CABG for one vessel disease tomorrow in a.m. by . Patient is a nonsmoker he drinks 2 rojelio per week, and he has no significant other medical history except for anginal symptoms as noted above, hypertension, hyperlipidemia, and strong family history of premature coronary artery disease. Patient was also found recently to have significant blockage in the left carotid artery and that is dressed in the near future. Presently patient is relatively asymptomatic, no cough no wheezing no shortness of breath no chest pain. The patient is seen again today 01/08/2017 in follow-up. He is now status post urgent off-pump coronary artery bypass grafting times one utilizing a HU to the LAD. Postoperative day #0. He is currently intubated and on the mechanical ventilator at assist control mode of 50, tidal volume 500, FiO2 60% and a PEEP of 5. Current blood gases reveal a pO2 of 248, pCO2 47, pH 7.29 on 100% FiO2. He is sedated on propofol 50 mcg/kg/m. He has a mediastinal and a left pleural chest tubes in place. He did have a brief episode of bradycardia requiring 0.5 mg of atropine IV push times one. He is currently hemodynamically stable. He has been on and off the nitro drip which is currently off. His cardiac output is 5.1, index 2.6. PA pressure 36/21 with a mean of 28. His hemoglobin is stable at 11.4. He has remained in normal sinus rhythm with current heart rate in the 80s. He has adequate urine output. He has lactated Ringer's maintenance at 50 mL per hour. Objective - Vital Signs Vital signs: Vital Signs Temp 97.9 F 01/08/17 14:00 Pulse 66 01/08/17 12:00 Resp 16 01/08/17 12:00 BP 151/87 01/08/17 06:36 Pulse Ox 100 01/08/17 12:40 Intake & Output 01/07/17 01/08/17 01/08/17 18:59 06:59 18:59 Intake Total 227.94 256 Output Total 300 1201 Balance -72.06 -945 Weight 83.91 kg 84.9 kg Intake: IV 167.94 33 Intake, IV Titration 223 Amount Lactated Ringers 1,000 ml 150 @ 50 mls/hr IV .Q20H JOSAFAT Rx#:[id number] Nitroglycerin-D5w Pmx 50 3 mg In Dextrose/Water 1 250ml.bag @ 5 MCG/MIN 1.5 mls/hr IV .Q24H JOSAFAT Rx#: [id number] Propofol 500 mg In Empty 70 Bag 1 bag @ Titrate IV . Q0M ONE Rx#:[id number] Oral 60 Output: Chest Tube Drainage 221 Chest Tube Left Pleural/ 55 Mediastinal Chest Tube Mediastinal 166 Urine 300 680 Estimated Blood Loss 300 Other: Voiding Method Toilet Indwelling Catheter # Voids 2 - Exam GENERAL EXAM: Sedated, intubated.. HEAD: Normocephalic. EYES: Normal reaction of pupils, equal size. NOSE: Clear with pink turbinates. THROAT: Oral endotracheal tube in place. No erythema or exudates. NECK: No masses, no JVD. [place]Bree catheter in place. CHEST: Sternal dressing dry and intact. Mediastinal and left pleural chest tubes in place. LUNGS: Equal air entry with no crackles, wheeze, rhonchi or dullness. CVS: S1 and S2 normal with no audible murmurs, regular rhythm. ABDOMEN: Soft, nondistended. Extremities: There is trace peripheral edema. No clubbing, no cyanosis. Peripheral pulses are intact. - Labs CBC & Chem 7: 01/08/17 12:14 01/08/17 12:14 Labs: Abnormal Lab Results - Last 24 Hours (Table) 01/07/17 01/07/17 01/07/17 Range/Units 15:03 15:03 15:03 RBC 4.09 L (4.30-5.90) m/uL Hgb (13.0-17.5) gm/dL Hct (39.0-53.0) % Neutrophils # (1.3-7.7) k/uL ABG pH (7.35-7.45) ABG pCO2 (35-45) mmHg ABG pO2 (83-108) mmHg ABG O2 Saturation (94-97) % Chloride (98-107) mmol/L Glucose 105 H (74-99) mg/dL POC Glucose (mg/dL) (75-99) mg/dL Calcium (8.4-10.2) mg/dL Total Protein 6.0 L (6.3-8.2) g/dL Albumin 3.4 L (3.5-5.0) g/dL Ur Specific [place] (1.001-1.035) Urine Ketones (Negative) Ur Leukocyte Esterase (Negative) Urine Bacteria (None) /hpf Urine Mucus (None) /hpf Crossmatch See Detail 01/07/17 01/08/17 01/08/17 Range/Units 19:30 08:20 09:42 RBC (4.30-5.90) m/uL Hgb (13.0-17.5) gm/dL Hct (39.0-53.0) % Neutrophils # (1.3-7.7) k/uL ABG pH (7.35-7.45) ABG pCO2 (35-45) mmHg ABG pO2 (83-108) mmHg ABG O2 Saturation (94-97) % Chloride (98-107) mmol/L Glucose (74-99) mg/dL POC Glucose (mg/dL) 104 H 107 H (75-99) mg/dL Calcium (8.4-10.2) mg/dL Total Protein (6.3-8.2) g/dL Albumin (3.5-5.0) g/dL Ur Specific [place] 1.036 H (1.001-1.035) Urine Ketones 1+ H (Negative) Ur Leukocyte Esterase Trace H (Negative) Urine Bacteria Occasional H (None) /hpf Urine Mucus Rare H (None) /hpf Crossmatch 01/08/17 01/08/17 01/08/17 Range/Units 11:00 12:14 12:14 RBC 3.50 L (4.30-5.90) m/uL Hgb 11.4 L (13.0-17.5) gm/dL Hct 33.4 L (39.0-53.0) % Neutrophils # 8.5 H (1.3-7.7) k/uL ABG pH (7.35-7.45) ABG pCO2 (35-45) mmHg ABG pO2 (83-108) mmHg ABG O2 Saturation (94-97) % Chloride 108 H (98-107) mmol/L Glucose (74-99) mg/dL POC Glucose (mg/dL) 107 H (75-99) mg/dL Calcium 7.7 L (8.4-10.2) mg/dL Total Protein 5.3 L (6.3-8.2) g/dL Albumin 3.2 L (3.5-5.0) g/dL Ur Specific [place] (1.001-1.035) Urine Ketones (Negative) Ur Leukocyte Esterase (Negative) Urine Bacteria (None) /hpf Urine Mucus (None) /hpf Crossmatch 01/08/17 Range/Units 12:45 RBC (4.30-5.90) m/uL Hgb (13.0-17.5) gm/dL Hct (39.0-53.0) % Neutrophils # (1.3-7.7) k/uL ABG pH 7.29 L (7.35-7.45) ABG pCO2 47 H (35-45) mmHg ABG pO2 248 H (83-108) mmHg ABG O2 Saturation 100.0 H (94-97) % Chloride (98-107) mmol/L Glucose (74-99) mg/dL POC Glucose (mg/dL) (75-99) mg/dL Calcium (8.4-10.2) mg/dL Total Protein (6.3-8.2) g/dL Albumin (3.5-5.0) g/dL Ur Specific [place] (1.001-1.035) Urine Ketones (Negative) Ur Leukocyte Esterase (Negative) Urine Bacteria (None) /hpf Urine Mucus (None) /hpf Crossmatch Microbiology - Last 24 Hours (Table) 01/07/17 22:47 Nasal Screen MRSA/MSSA (RADHA) - Preliminary Nasal Swab 01/07/17 19:30 Urine Culture - Preliminary Urine,Clean Catch Assessment and Plan Plan: Impression: #1 Coronary artery disease involving the LAD with unsuccessful PTCA attempt. Status post urgent off-pump coronary artery bypass grafting times one with a HU to the LAD. Postoperative day #0. #2 Post thoracotomy ventilator dependence, expected postoperative event. #3 Left internal coronary artery occlusion. #4 Hyperlipidemia. #5 Hypertension. Plan: The patient was seen and evaluated by Dr. Reeder. His chest x-ray and labs were reviewed. We will plan to follow the early extubation protocol. Vent settings were adjusted per ABGs. Continue bronchodilators every 4 hours. We'll continue to monitor him closely here in the intensive care unit. We'll repeat his chest x-ray and labs in the a.m. He remains on antibiotics in the form of cefazolin. We'll continue with heparin subcutaneous for DVT prophylaxis and Protonix for GI prophylaxis. We'll continue to follow make further recommendations based on his clinical status. Critical care time 34 minutes.
[2017-01-08] MEDS: PROPOFOL 500 MG in EMPTY BAG 1 BAG IV SCH ×2 (15:27→16:29)
[2017-01-08] MEDS: IPRATROPIUM-ALBUTEROL 3 ML NEB INHALATION SCH ×3 (16:01→23:09)
[2017-01-08 16:05] LABS: Glucose,Whole Blood 103 mg/dL (75-99)
[2017-01-08 16:15] LABS: Basophils % (A) 0 %; CH 33.4; CHCM 34.4; Eosinophils # (A) 0.1 k/uL (0-0.7); Eosinophils % (A) 1 %; HCT 36.4 % (39.0-53.0); HDW 2.55; HGB 12.3 gm/dL (13.0-17.5); Luc # (Auto) 0.07; Luc % (Auto) 1; Lymphocytes # (A) 1.1 k/uL (1.0-4.8); Lymphocytes % (A) 11 %; MCHC 33.8 g/dL (31.0-37.0); MCV 97.5 fL (80.0-100.0); Mean Platelet Volume 6.6; Monocytes # (A) 0.5 k/uL (0-1.0); Monocytes % (A) 5 %; Neutrophils # (A) 8.4 k/uL (1.3-7.7); Neutrophils % (A) 82 %; RBC 3.73 m/uL (4.30-5.90); RDW 12.7 % (11.5-15.5); WBC 10.2 k/uL (3.8-10.6)
--- NOTE | 2017-01-08 16:20 | PN ---
Mr. Russo is a 61-year-old male who has been followed by Dr. Villalobos. He underwent cardiac catheterization and was found to have a critical lesion in the mid LAD. Attempts to angioplasty by Dr. Benz were unsuccessful. He underwent surgery today with a single HU to the LAD. He is intubated, sedated, hemodynamically stable. PHYSICAL EXAMINATION: Blood pressure 149/80 with a heart rate in the 60s. LUNGS: Clear anteriorly. HEART: Regular rate, rhythm. S1, S2. No S3. No rub. ABDOMEN: Soft. Hypoactive bowel sounds. EXTREMITIES: No edema. IMPRESSION: 1. Status post single coronary artery bypass grafting to the left anterior descending coronary artery. 2. History of hyperlipidemia. RECOMMENDATIONS: Will continue routine postoperative care. Hopefully he will be extubated today and restarted on his statin. Depending on his blood pressure, adjustment of his medical regimen can be made.
[2017-01-08 17:18] LABS: Glucose,Whole Blood 138 mg/dL (75-99)
[2017-01-08] MEDS: ACETAMINOPHEN IV (For NPO) 1,000 MG in EMPTY BAG 1 BAG IVPB SCH ×2 (17:33→23:11)
[2017-01-08 18:01] LABS: ABG PCO2 36 mmHg (35-45); ABG PH 7.35 (7.35-7.45); ABG PO2 84 mmHg (83-108)
[2017-01-08 18:02] LABS: ABG Base Excess -5.4 mmol/L; ABG HCO3 19 mmol/L (21-25); ABG TCO2 20 mmol/L (19-24)
[2017-01-08 18:18] LABS: Glucose,Whole Blood 127 mg/dL (75-99)
[2017-01-08] MEDS ORDERED: KETOROLAC 30 MG/ML 1 ML VIAL IVP SCH (18:30)
[2017-01-08 19:04] LABS: Glucose,Whole Blood 123 mg/dL (75-99)
[2017-01-08] MEDS: KETOROLAC 30 MG/ML 1 ML VIAL IVP PRN (19:49)
[2017-01-08 20:09] LABS: Glucose,Whole Blood 140 mg/dL (75-99)
[2017-01-08 20:25] LABS: Basophils % (A) 0 %; CHCM 34.8; Eosinophils % (A) 0 %; HDW 2.62; HGB 12.5 gm/dL (13.0-17.5); Luc # (Auto) 0.07; Luc % (Auto) 1; Lymphocytes # (A) 0.5 k/uL (1.0-4.8); Lymphocytes % (A) 4 %; MCHC 34.6 g/dL (31.0-37.0); MCV 95.4 fL (80.0-100.0); Mean Platelet Volume 7.4; Monocytes # (A) 0.6 k/uL (0-1.0); Monocytes % (A) 5 %; Neutrophils # (A) 10.9 k/uL (1.3-7.7); Neutrophils % (A) 90 %; RBC 3.78 m/uL (4.30-5.90); RDW 12.5 % (11.5-15.5); WBC 12.1 k/uL (3.8-10.6); WBC (Perox) 12.86
[2017-01-08 20:40] LABS: Ionized Calcium 5.2 mg/dL (4.5-5.3)
[2017-01-08 20:49] LABS: Anion Gap 8 mmol/L; Blood Urea Nitrogen 10 mg/dL (9-20); Calcium 8.7 mg/dL (8.4-10.2); Carbon Dioxide 21 mmol/L (22-30); Chloride 106 mmol/L (98-107); Glucose 144 mg/dL (74-99); Magnesium 1.9 mg/dL (1.6-2.3); Non-African American GFR(MDRD) >60 (>60 ml/min/1.73 sqM); Phosphorous 2.9 mg/dL (2.5-4.5); Potassium 4.4 mmol/L (3.5-5.1); Sodium 135 mmol/L (137-145)
[2017-01-08 20:56] LABS: INR 1.1 (<1.1); Prothrombin Time 10.7 sec (9.0-12.0)
[2017-01-08 21:03] LABS: Partial Thromboplastin Time 19.8 sec (22.0-30.0)
[2017-01-08 21:09] LABS: Glucose,Whole Blood 144 mg/dL (75-99)
[2017-01-08] MEDS: MUPIROCIN 2% OINT 22 GM TUBE NASAL SCH (21:42)
[2017-01-08 22:06] LABS: Glucose,Whole Blood 140 mg/dL (75-99)
--- NOTE | 2017-01-08 22:09 | OP ---
DATE OF SERVICE: SURGEON: Theresa Felix MD CORPORATE HEALTH CONSULTANT: AMY TORRES, KELBY TORRES PREOPERATIVE DIAGNOSES: 1. Unstable angina. 2. Severe left anterior descending coronary artery disease not amenable to PTCA stenting. 3. Totally occluded left internal carotid artery. 4. Recently diagnosed untreated hypertension. 5. Hyperlipidemia. 6. Strong family history of coronary artery disease. POSTOPERATIVE DIAGNOSES: 1. Unstable angina. 2. Severe left anterior descending coronary artery disease not amenable to PTCA stenting. 3. Totally occluded left internal carotid artery. 4. Recently diagnosed untreated hypertension. 5. Hyperlipidemia. 6. Strong family history of coronary artery disease. PROCEDURE: Median sternotomy via a limited skin incision and off-pump coronary artery bypass grafting using the left internal mammary artery to the left anterior descending artery with transesophageal echocardiogram. INDICATIONS FOR SURGERY: Patient is a 61-year-old gentleman who sustained an episode of chest pain one week ago, and was admitted at [facility] and cleared. 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 Attempt at PTCA stenting of that LAD lesion failed. Patient was referred for surgical evaluation and will be brought in today for beating heart single vessel bypass to his LAD as is his marginal is relatively a vessel to a limited territory. That has been discussed with cardiology. Preoperative testing included a carotid duplex that showed totally occluded left internal carotid artery with no significant stenosis of the right internal carotid artery. Left ventricular function was overall preserved with some mild anteroseptal hypokinesis. Risks, benefits, and alternatives were discussed with him and his family. They understood them and agreed to proceed. DESCRIPTION OF THE PROCEDURE: Patient had a right internal jugular [place]Bree catheter and right radial arterial line placed in the preoperative holding area and he has a normal PA pressure and good cardiac index. Subsequently, he was brought to the operating room, where general endotracheal anesthesia was induced uneventfully. The patient received 2 grams of cefazolin intravenously. A Vega catheter was inserted. The chest, abdomen and both lower extremities were prepped and draped using ChloraPrep. Ioban was used to cover the skin. Transesophageal echocardiogram confirmed the preoperative finding of some mild anteroapical hypokinesis. There were no significant valvular abnormalities. Via a limited midline incision, full median sternotomy was performed and no bone wax was used. The left hemisternum was elevated and left internal mammary artery was harvested in a somewhat skeletonized fashion. The left pleura was intentionally opened in this process and was drained with 28 [place] chest tube. The right pleura remained intact. Pericardium was opened after reflecting the mediastinal fat above the aorta but they were not transected and pericardial cradle was created. A groove was made in the left pleural pericardial fat to make the mammary artery medial to the lung and away from the posterior sternal table. 5000 units of heparin was given initially as we transected the distal end of the mammary after double clipping it and had an excellent pulsatile flow in it. It was around 2 mm in diameter. Additional heparin was given to achieve an ACT above 250 seconds. The Acrobat system along with the mister blower were used to perform the surgery on a beating heart. The LAD was nicely exposed with medial retraction sutures and it was soft in its mid to distal aspect. A spot before the last diagonal artery was selected as it emerged from an intramyocardial course and at that level it was opened, was around 2 mm in diameter and I inserted a 1.75 mm shunt. Subsequently, the left internal mammary artery was anastomosed to the left anterior descending artery using Prolene 7-0 in a continuous fashion. The shunt was removed before completing the anastomosis, which was well tolerated and totally hemostatic. The mammary pedicle was affixed to the epicardium with 2 Prolene 6-0 suture. Satisfied with the quality and the look of the anastomosis, test dose and full dose protamine was given. Pericardium and pericardial fat were used to cover the heart. One 32 [place] chest tube was placed in the substernal area and after ensuring adequate hemostasis and hemodynamics, the sternum was closed using 6 interrupted stainless steel wires. The rest of the closure proceeded in layers, skin glue was applied. Patient did not receive any blood bank product but received 150 mL of Cell Saver blood. He was transferred to the ICU in stable condition on low-dose nitroglycerin with excellent hemodynamics with improved PA pressure compared to the values during the case. [facility]
[2017-01-08 23:04] LABS: Glucose,Whole Blood 140 mg/dL (75-99)
[2017-01-08] MEDS: HEPARIN SODIUM,PORCINE 5,000 UNIT/ML 1 ML VIAL SQ SCH (23:12)
[2017-01-09] MEDS ORDERED: KETOROLAC 30 MG/ML 1 ML VIAL IVP SCH
[2017-01-09 00:09] LABS: Glucose,Whole Blood 151 mg/dL (75-99)
[2017-01-09] MEDS: MAGNESIUM SULFATE-D5W PMX 1 GM in DEXTROSE/WATER 1 100ML.BAG IVPB SCH ×2 (00:14→01:48)
[2017-01-09] MEDS: MUPIROCIN 2% OINT 22 GM TUBE NASAL SCH ×3 (00:35→20:15)
[2017-01-09] MEDS: ISOSORBIDE MONONITRATE ER 30 MG TAB.ER.24H PO SCH (00:35)
[2017-01-09 01:04] LABS: Glucose,Whole Blood 153 mg/dL (75-99)
[2017-01-09 01:58] LABS: Glucose,Whole Blood 139 mg/dL (75-99)
[2017-01-09] MEDS: KETOROLAC 30 MG/ML 1 ML VIAL IVP PRN ×3 (03:00→20:33)
[2017-01-09 03:11] LABS: Glucose,Whole Blood 123 mg/dL (75-99)
[2017-01-09 03:20] LABS: Basophils % (A) 0 %; CH 33.4; CHCM 34.6; Eosinophils % (A) 0 %; HCT 35.1 % (39.0-53.0); HDW 2.51; HGB 11.9 gm/dL (13.0-17.5); Luc # (Auto) 0.08; Luc % (Auto) 1; Lymphocytes % (A) 9 %; Monocytes # (A) 0.7 k/uL (0-1.0); Monocytes % (A) 6 %; Neutrophils # (A) 8.9 k/uL (1.3-7.7); Neutrophils % (A) 84 %; RBC 3.62 m/uL (4.30-5.90); RDW 12.6 % (11.5-15.5); WBC 10.7 k/uL (3.8-10.6); WBC (Perox) 10.76
[2017-01-09 03:24] LABS: Ionized Calcium 5.2 mg/dL (4.5-5.3)
[2017-01-09 03:34] LABS: ALT 44 U/L (21-72); AST 53 U/L (17-59); Alkaline Phosphatase 49 U/L (38-126); Anion Gap 7 mmol/L; Blood Urea Nitrogen 12 mg/dL (9-20); Calcium 8.5 mg/dL (8.4-10.2); Carbon Dioxide 23 mmol/L (22-30); Chloride 105 mmol/L (98-107); Glucose 129 mg/dL (74-99); Magnesium 2.7 mg/dL (1.6-2.3); Non-African American GFR(MDRD) >60 (>60 ml/min/1.73 sqM); Potassium 4.4 mmol/L (3.5-5.1); Sodium 135 mmol/L (137-145); Total Bilirubin 1.4 mg/dL (0.2-1.3); Total Protein 5.7 g/dL (6.3-8.2)
[2017-01-09 04:21] LABS: Glucose,Whole Blood 140 mg/dL (75-99)
[2017-01-09 04:58] LABS: Glucose,Whole Blood 118 mg/dL (75-99)
[2017-01-09] MEDS: ACETAMINOPHEN IV (For NPO) 1,000 MG in EMPTY BAG 1 BAG IVPB SCH ×3 (05:00→18:54)
[2017-01-09] MEDS: ONDANSETRON 4 MG/2 ML VIAL IVP PRN (05:41)
[2017-01-09 06:15] LABS: Glucose,Whole Blood 112 mg/dL (75-99)
[2017-01-09 07:08] LABS: Glucose,Whole Blood 110 mg/dL (75-99)
--- NOTE | 2017-01-09 07:33 | P.PN ---
Progress Note - Text The patient is a 61-year-old gentleman of Dr. Sahni's for whom I am covering. This gentleman in the process of being worked up for chest pain was found to have a significant disease in the mid left anterior descending artery. This was not able to be angioplastied and yesterday patient underwent open heart surgery. Presently he is sitting up in the chair. He states he has had some nausea and difficulty in breathing because of the pain. He is alert and oriented. Patient does have multiple IV lines and chest tubes in place. He is being followed by cardiology and pulmonary medicine along with surgery. Patient is sitting up in a chair at the side of the bed. Pulse is 87 with respirations 16 and blood pressure 130/66. Breath sounds are somewhat harsh. Heart tones are regular. Abdomen nontender. Compression appliances in place without unusual distal edema. Once again he is alert without cranial nerve deficits or focal weakness noted. He is putting out to a little over 2-300 mL of urine per shift. His weight is up to 89.1 kg from 84.9. Lab: White count is 10.7 with a hemoglobin 11.9 and a platelet count of 198. Sodium is 135 with a potassium of 4.4. Urine is 12 with a creatinine 0.7. Blood sugar 129. Magnesium 2.7 with a bilirubin of 1.4. Albumin 3.6. Impressions and plans: Overall this 61-year-old gentleman post open heart bypass surgery is generally doing well. Being followed by surgery along with cardiology and pulmonary medicine. Continue to follow.
[2017-01-09 08:03] LABS: ABG Base Excess -3.2 mmol/L; ABG HCO3 21 mmol/L (21-25); ABG PCO2 38 mmHg (35-45); ABG PH 7.37 (7.35-7.45); ABG PO2 391 mmHg (83-108); ABG TCO2 22 mmol/L (19-24)
[2017-01-09 08:04] LABS: ABG Base Excess -3.7 mmol/L; ABG HCO3 21 mmol/L (21-25); ABG Oxygen Saturation 99.9 % (94-97); ABG PCO2 39 mmHg (35-45); ABG PH 7.35 (7.35-7.45); ABG PO2 375 mmHg (83-108); ABG TCO2 22 mmol/L (19-24)
[2017-01-09 08:06] LABS: ABG HCO3 21 mmol/L (21-25); ABG PCO2 40 mmHg (35-45); ABG PH 7.34 (7.35-7.45); ABG PO2 363 mmHg (83-108); ABG TCO2 22 mmol/L (19-24)
[2017-01-09 08:07] LABS: ABG Oxygen Saturation 99.9 % (94-97)
--- NOTE | 2017-01-09 08:07 | P.PN ---
Subjective Principal diagnosis: Unstable angina, severe left anterior descending coronary artery disease not amenable to PTCA stenting, totally occluded left internal carotid artery, recently diagnosed untreated hypertension, hyperlipidemia, strong family history of coronary artery disease. POD #1 median sternotomy via a limited skin incision and off pump coronary artery bypass grafting using the left internal mammary artery to the left anterior descending artery with transesophageal echocardiogram Patient currently sitting up in chair in no apparent distress. States they're working on controlling his pain. Objective - Vital Signs Vital signs: Vital Signs Temp 97.9 F 01/08/17 14:00 Pulse 81 01/09/17 07:00 Resp 18 01/09/17 07:00 BP 106/66 01/08/17 20:30 Pulse Ox 96 01/09/17 07:00 Intake & Output 01/08/17 01/09/17 01/09/17 18:59 06:59 18:59 Intake Total 099.762 9039.941 69 Output Total 1616 663 48 Balance -682.129 845.941 21 Weight 84.9 kg 89.1 kg Intake: IV 33 169 19 CO/CI 70 10 Pressure bag 99 9 Intake, IV Titration 794.775 9190.941 50 Amount ACETAMINOPHEN IV (For NPO 100 100 ) 1,000 mg In Empty Bag 1 bag @ 400 mls/hr IVPB Q6HR [facility] Rx#:[id number] Albumin Human 5% 250 ml 250 In Empty Bag 1 bag @ 250 mls/hr IVPB Q1HR PRN Rx#: [id number] Calcium Gluconate 2,000 100 mg In Sodium Chloride 0.9 % 100 ml @ 100 mls/hr IVPB ONCE ONE Rx#: [id number] Clevidipine Butyrate 25 4.267 0 mg In Empty Bag 1 bag @ 1 MG/HR 2 mls/hr IV .Q24H ONE Rx#:[id number] Insulin Regular 100 unit 18.691 In Sodium Chloride 0.9% 100 ml @ Per Protocol IV .Q0M [facility] Rx#:[id number] Lactated Ringers 1,000 ml 350 600 50 @ 50 mls/hr IV .Q20H [facility] Rx#:[id number] Magnesium Sulfate-D5w Pmx 200 1 gm In Dextrose/Water 1 100ml.bag @ 100 mls/hr IVPB Q1H [facility] Rx#: [id number] Nitroglycerin-D5w Pmx 50 21.175 171.25 mg In Dextrose/Water 1 250ml.bag @ 5 MCG/MIN 1.5 mls/hr IV .Q24H [facility] Rx#: [id number] Potassium Chloride 20 meq 100 In Water For Injection 1 100ml.bag @ 50 mls/hr IVPB ONCE ONE Rx#: [id number] Propofol 500 mg In Empty 70 Bag 1 bag @ Titrate IV . Q0M ONE Rx#:[id number] Propofol 500 mg In Empty 55.429 Bag 1 bag @ Titrate IV . Q0M [facility] Rx#:[id number] ceFAZolin 2 gm In Sodium 100 Chloride 0.9% 100 ml @ 100 mls/hr IVPB Q8HR [facility] Rx#:[id number] Output: Chest Tube Drainage 416 256 18 Chest Tube Left Pleural/ 100 76 8 Mediastinal Chest Tube Mediastinal 316 180 10 Urine 900 407 30 Estimated Blood Loss 300 Other: Voiding Method Indwelling Catheter Indwelling Catheter # Voids 2 ABP, PAP, CO, CI - Last Documented Arterial Blood Pressure 104/61 Pulmonary Artery Pressure 33/16 Cardiac Output 7.5 Cardiac Index 3.9 - Constitutional General appearance: Present: cooperative, no acute distress - Respiratory Details: Lungs sounds diminished bilaterally. Respirations even, nonlabored. Currently on 3 L nasal cannula. Able to achieve 500 mL on his incentive spirometry. Mediastinal chest tube to -20 cm wall suction, draining serosanguineous fluid, 230 mL last 12 hours, 476 mL the last 24 hours. Left pleural chest tube to -20 cm wall suction, draining serosanguineous fluid, 75 mL in the last 12 hours, 160 mL last 24 hours. No air leak in either tube. - Cardiovascular Details: S1, S2 present. Regular rate and rhythm, normal sinus rhythm on telemetry. Chest stable. Heart hugger in place with patient demonstrate appropriate use. Teds, SCDs to bilateral lower extremities. - Gastrointestinal Gastrointestinal Comment(s): Abdomen soft, nontender, nondistended. Hypoactive bowel sounds 4 quadrants. Negative flatus at this time. - Genitourinary Genitourinary Comment(s): Vega present draining clear, yellow urine. Approximately 25-40 mL/h - Integumentary Integumentary Comment(s): Anterior chest incision covered with dry, intact silver dressing. - Musculoskeletal Musculoskeletal: Present: strength equal bilaterally - Psychiatric Psychiatric: Present: A&O x's 3, appropriate affect, intact judgment & insight - Allied health notes Allied health notes reviewed: nursing - Labs CBC & Chem 7: 01/09/17 03:10 01/09/17 03:10 Labs: Abnormal Lab Results - Last 24 Hours (Table) 01/07/17 01/08/17 01/08/17 Range/Units 15:03 08:20 09:42 WBC (3.8-10.6) k/uL RBC (4.30-5.90) m/uL Hgb (13.0-17.5) gm/dL Hct (39.0-53.0) % Neutrophils # (1.3-7.7) k/uL Lymphocytes # (1.0-4.8) k/uL APTT (22.0-30.0) sec ABG pH (7.35-7.45) ABG pCO2 (35-45) mmHg ABG pO2 (83-108) mmHg ABG HCO3 (21-25) mmol/L ABG O2 Saturation (94-97) % Sodium (137-145) mmol/L Chloride (98-107) mmol/L Carbon Dioxide (22-30) mmol/L Glucose (74-99) mg/dL POC Glucose (mg/dL) 104 H 107 H (75-99) mg/dL Calcium (8.4-10.2) mg/dL Magnesium (1.6-2.3) mg/dL Total Bilirubin (0.2-1.3) mg/dL Total Protein (6.3-8.2) g/dL Albumin (3.5-5.0) g/dL Crossmatch See Detail 01/08/17 01/08/17 01/08/17 Range/Units 11:00 12:14 12:14 WBC (3.8-10.6) k/uL RBC 3.50 L (4.30-5.90) m/uL Hgb 11.4 L (13.0-17.5) gm/dL Hct 33.4 L (39.0-53.0) % Neutrophils # 8.5 H (1.3-7.7) k/uL Lymphocytes # (1.0-4.8) k/uL APTT (22.0-30.0) sec ABG pH (7.35-7.45) ABG pCO2 (35-45) mmHg ABG pO2 (83-108) mmHg ABG HCO3 (21-25) mmol/L ABG O2 Saturation (94-97) % Sodium (137-145) mmol/L Chloride 108 H (98-107) mmol/L Carbon Dioxide (22-30) mmol/L Glucose (74-99) mg/dL POC Glucose (mg/dL) 107 H (75-99) mg/dL Calcium 7.7 L (8.4-10.2) mg/dL Magnesium (1.6-2.3) mg/dL Total Bilirubin (0.2-1.3) mg/dL Total Protein 5.3 L (6.3-8.2) g/dL Albumin 3.2 L (3.5-5.0) g/dL Crossmatch 01/08/17 01/08/17 01/08/17 Range/Units 12:45 16:03 16:05 WBC (3.8-10.6) k/uL RBC 3.73 L (4.30-5.90) m/uL Hgb 12.3 L (13.0-17.5) gm/dL Hct 36.4 L (39.0-53.0) % Neutrophils # 8.4 H (1.3-7.7) k/uL Lymphocytes # (1.0-4.8) k/uL APTT (22.0-30.0) sec ABG pH 7.29 L (7.35-7.45) ABG pCO2 47 H (35-45) mmHg ABG pO2 248 H (83-108) mmHg ABG HCO3 (21-25) mmol/L ABG O2 Saturation 100.0 H (94-97) % Sodium (137-145) mmol/L Chloride (98-107) mmol/L Carbon Dioxide (22-30) mmol/L Glucose (74-99) mg/dL POC Glucose (mg/dL) 103 H (75-99) mg/dL Calcium (8.4-10.2) mg/dL Magnesium (1.6-2.3) mg/dL Total Bilirubin (0.2-1.3) mg/dL Total Protein (6.3-8.2) g/dL Albumin (3.5-5.0) g/dL Crossmatch 01/08/17 01/08/17 01/08/17 Range/Units 17:12 17:55 18:16 WBC (3.8-10.6) k/uL RBC (4.30-5.90) m/uL Hgb (13.0-17.5) gm/dL Hct (39.0-53.0) % Neutrophils # (1.3-7.7) k/uL Lymphocytes # (1.0-4.8) k/uL APTT (22.0-30.0) sec ABG pH (7.35-7.45) ABG pCO2 (35-45) mmHg ABG pO2 (83-108) mmHg ABG HCO3 19 L (21-25) mmol/L ABG O2 Saturation (94-97) % Sodium (137-145) mmol/L Chloride (98-107) mmol/L Carbon Dioxide (22-30) mmol/L Glucose (74-99) mg/dL POC Glucose (mg/dL) 138 H 127 H (75-99) mg/dL Calcium (8.4-10.2) mg/dL Magnesium (1.6-2.3) mg/dL Total Bilirubin (0.2-1.3) mg/dL Total Protein (6.3-8.2) g/dL Albumin (3.5-5.0) g/dL Crossmatch 01/08/17 01/08/17 01/08/17 Range/Units 19:02 20:05 20:05 WBC 12.1 H (3.8-10.6) k/uL RBC 3.78 L (4.30-5.90) m/uL Hgb 12.5 L (13.0-17.5) gm/dL Hct 36.0 L (39.0-53.0) % Neutrophils # 10.9 H (1.3-7.7) k/uL Lymphocytes # 0.5 L (1.0-4.8) k/uL APTT 19.8 L (22.0-30.0) sec ABG pH (7.35-7.45) ABG pCO2 (35-45) mmHg ABG pO2 (83-108) mmHg ABG HCO3 (21-25) mmol/L ABG O2 Saturation (94-97) % Sodium (137-145) mmol/L Chloride (98-107) mmol/L Carbon Dioxide (22-30) mmol/L Glucose (74-99) mg/dL POC Glucose (mg/dL) 123 H (75-99) mg/dL Calcium (8.4-10.2) mg/dL Magnesium (1.6-2.3) mg/dL Total Bilirubin (0.2-1.3) mg/dL Total Protein (6.3-8.2) g/dL Albumin (3.5-5.0) g/dL Crossmatch 01/08/17 01/08/17 01/08/17 Range/Units 20:05 20:06 21:06 WBC (3.8-10.6) k/uL RBC (4.30-5.90) m/uL Hgb (13.0-17.5) gm/dL Hct (39.0-53.0) % Neutrophils # (1.3-7.7) k/uL Lymphocytes # (1.0-4.8) k/uL APTT (22.0-30.0) sec ABG pH (7.35-7.45) ABG pCO2 (35-45) mmHg ABG pO2 (83-108) mmHg ABG HCO3 (21-25) mmol/L ABG O2 Saturation (94-97) % Sodium 135 L (137-145) mmol/L Chloride (98-107) mmol/L Carbon Dioxide 21 L (22-30) mmol/L Glucose 144 H (74-99) mg/dL POC Glucose (mg/dL) 140 H 144 H (75-99) mg/dL Calcium (8.4-10.2) mg/dL Magnesium (1.6-2.3) mg/dL Total Bilirubin (0.2-1.3) mg/dL Total Protein (6.3-8.2) g/dL Albumin (3.5-5.0) g/dL Crossmatch 01/08/17 01/08/17 01/09/17 Range/Units 22:04 23:03 00:06 WBC (3.8-10.6) k/uL RBC (4.30-5.90) m/uL Hgb (13.0-17.5) gm/dL Hct (39.0-53.0) % Neutrophils # (1.3-7.7) k/uL Lymphocytes # (1.0-4.8) k/uL APTT (22.0-30.0) sec ABG pH (7.35-7.45) ABG pCO2 (35-45) mmHg ABG pO2 (83-108) mmHg ABG HCO3 (21-25) mmol/L ABG O2 Saturation (94-97) % Sodium (137-145) mmol/L Chloride (98-107) mmol/L Carbon Dioxide (22-30) mmol/L Glucose (74-99) mg/dL POC Glucose (mg/dL) 140 H 140 H 151 H (75-99) mg/dL Calcium (8.4-10.2) mg/dL Magnesium (1.6-2.3) mg/dL Total Bilirubin (0.2-1.3) mg/dL Total Protein (6.3-8.2) g/dL Albumin (3.5-5.0) g/dL Crossmatch 01/09/17 01/09/17 01/09/17 Range/Units 01:01 01:56 03:09 WBC (3.8-10.6) k/uL RBC (4.30-5.90) m/uL Hgb (13.0-17.5) gm/dL Hct (39.0-53.0) % Neutrophils # (1.3-7.7) k/uL Lymphocytes # (1.0-4.8) k/uL APTT (22.0-30.0) sec ABG pH (7.35-7.45) ABG pCO2 (35-45) mmHg ABG pO2 (83-108) mmHg ABG HCO3 (21-25) mmol/L ABG O2 Saturation (94-97) % Sodium (137-145) mmol/L Chloride (98-107) mmol/L Carbon Dioxide (22-30) mmol/L Glucose (74-99) mg/dL POC Glucose (mg/dL) 153 H 139 H 123 H (75-99) mg/dL Calcium (8.4-10.2) mg/dL Magnesium (1.6-2.3) mg/dL Total Bilirubin (0.2-1.3) mg/dL Total Protein (6.3-8.2) g/dL Albumin (3.5-5.0) g/dL Crossmatch 01/09/17 01/09/17 01/09/17 Range/Units 03:10 03:10 04:18 WBC 10.7 H (3.8-10.6) k/uL RBC 3.62 L (4.30-5.90) m/uL Hgb 11.9 L (13.0-17.5) gm/dL Hct 35.1 L (39.0-53.0) % Neutrophils # 8.9 H (1.3-7.7) k/uL Lymphocytes # (1.0-4.8) k/uL APTT (22.0-30.0) sec ABG pH (7.35-7.45) ABG pCO2 (35-45) mmHg ABG pO2 (83-108) mmHg ABG HCO3 (21-25) mmol/L ABG O2 Saturation (94-97) % Sodium 135 L (137-145) mmol/L Chloride (98-107) mmol/L Carbon Dioxide (22-30) mmol/L Glucose 129 H (74-99) mg/dL POC Glucose (mg/dL) 140 H (75-99) mg/dL Calcium (8.4-10.2) mg/dL Magnesium 2.7 H (1.6-2.3) mg/dL Total Bilirubin 1.4 H (0.2-1.3) mg/dL Total Protein 5.7 L (6.3-8.2) g/dL Albumin (3.5-5.0) g/dL Crossmatch 01/09/17 01/09/17 01/09/17 Range/Units 04:57 06:13 07:06 WBC (3.8-10.6) k/uL RBC (4.30-5.90) m/uL Hgb (13.0-17.5) gm/dL Hct (39.0-53.0) % Neutrophils # (1.3-7.7) k/uL Lymphocytes # (1.0-4.8) k/uL APTT (22.0-30.0) sec ABG pH (7.35-7.45) ABG pCO2 (35-45) mmHg ABG pO2 (83-108) mmHg ABG HCO3 (21-25) mmol/L ABG O2 Saturation (94-97) % Sodium (137-145) mmol/L Chloride (98-107) mmol/L Carbon Dioxide (22-30) mmol/L Glucose (74-99) mg/dL POC Glucose (mg/dL) 118 H 112 H 110 H (75-99) mg/dL Calcium (8.4-10.2) mg/dL Magnesium (1.6-2.3) mg/dL Total Bilirubin (0.2-1.3) mg/dL Total Protein (6.3-8.2) g/dL Albumin (3.5-5.0) g/dL Crossmatch Microbiology - Last 24 Hours (Table) 01/07/17 19:30 Urine Culture - Final Urine,Clean Catch 01/07/17 22:47 Nasal Screen MRSA/MSSA ([facility]) - Preliminary Nasal Swab - Imaging and Cardiology Chest x-ray: report reviewed, image reviewed Assessment and Plan (1) Unstable angina Status: Acute (2) Coronary artery disease Status: Acute (3) Occlusion of left internal carotid artery Status: Acute (4) Hypertension Status: Acute (5) Hyperlipidemia Status: Acute (6) Family history of coronary artery disease Status: Acute Plan: 1. Continue aspirin, statin, Plavix, beta laura. Will maximize beta laura as tolerated. 2. DC [place]. 3. Pain control. 4. Encourage incentive spirometry use. Wean O2 as tolerated. 5. Increase activity. Ambulate in room. PT to follow. 6. GI/DVT prophylaxis. 7. Blood sugar management with insulin drip. Progressed to SQ insulin per primary service 8. More recommendations as patient progresses. Time with Patient: Greater than 30
[2017-01-09 08:11] LABS: Glucose,Whole Blood 120 mg/dL (75-99)
[2017-01-09] MEDS ORDERED: FUROSEMIDE 10 MG/ML 2 ML VIAL IV STA (08:14)
[2017-01-09] MEDS: ceFAZolin 2 GM in SODIUM CHLORIDE 0.9% 100 ML IVPB SCH (08:18)
[2017-01-09] MEDS: HEPARIN SODIUM,PORCINE 5,000 UNIT/ML 1 ML VIAL SQ SCH ×2 (08:24→16:27)
[2017-01-09] MEDS: ASPIRIN 325 MG TAB PO SCH (08:24)
[2017-01-09] MEDS: ATORVASTATIN 40 MG TAB PO SCH (08:25)
[2017-01-09] MEDS: CLOPIDOGREL 75 MG TAB PO SCH (08:25)
[2017-01-09] MEDS: METOPROLOL TARTRATE 12.5 MG TAB PO SCH ×2 (08:25→20:14)
--- NOTE | 2017-01-09 08:44 | XR ---
EXAMINATION TYPE: XR chest 1V portable DATE OF EXAM: 01/09/2017 6:29 AM COMPARISON: Prior chest x-ray second of January 2017 HISTORY: Postop cardiac surgery TECHNIQUE: Single frontal view of the chest is obtained. FINDINGS: Right-sided jugular central venous catheter is again noted. Endotracheal tube, NG tube has been removed, left-sided chest tube is stable. Patient is post median sternotomy and rotated. Median sternal drain is in place. No sizable pneumothorax or pleural effusion. There are overlying cardiac leads. Interstitium is somewhat increased. IMPRESSION: Interval extubation, rotated expiratory exam. There may be a component of volume overloa d, interstitial edema, follow-up is recommended. Accentuation of heart size may be due to rotation.
[2017-01-09] MEDS ORDERED: PANTOPRAZOLE 40 MG/10 ML VIAL IVP SCH (09:00)
[2017-01-09 09:08] LABS: Glucose,Whole Blood 136 mg/dL (75-99)
[2017-01-09] MEDS: LISINOPRIL 2.5 MG TAB PO SCH ×2 (09:36→20:15)
--- NOTE | 2017-01-09 10:00 | PN ---
Mr. Russo 61-year-old male who underwent coronary artery bypass grafting with single HU to the LAD. He is doing well this morning, extubated, sitting up in the chair, mildly dyspneic, has soreness in the chest. He is in sinus mechanism. There is no evidence of tachy or bradyarrhythmia. He is on aspirin once a day, Plavix 75 mg daily, Lipitor 40 mg daily, metoprolol tartrate 12.5 mg twice a day. PHYSICAL EXAMINATION: Blood pressure 133/70 with the heart rate in the 70s. LUNGS: With mild decrease in the breath sounds at the bases. No wheezes. HEART: Regular rate and rhythm. S1, S2, no S3, plus rub. No gallop. ABDOMEN: Soft, nontender, positive bowel sounds. No organomegaly. EXTREMITIES: No edema. Lab data revealed a BUN and creatinine 12 and 0.7. Potassium 4.4. Hemoglobin of 11.9. IMPRESSION: 1. Status post coronary artery bypass grafting with single left internal mammary artery to the left anterior descending. 2. History of hypertension. 3. History of hyperlipidemia. RECOMMENDATIONS: I will add to his regimen low-dose HAYDEN inhibitor for his blood pressure. I will continue with his medical regimen. If needed, the dose of the beta laura can be increased. Will continue incentive spirometry. Continue to increase his level of activity and depending on his progress, further recommendation will be made.
[2017-01-09 10:34] LABS: Glucose,Whole Blood 130 mg/dL (75-99)
--- NOTE | 2017-01-09 11:12 | P.PN ---
Subjective Principal diagnosis: Status post CABG, off pump, single-vessel, LAD to the left anterior descending artery. Postoperative day #1, status post median sternotomy off pump coronary artery bypass grafting using the left internal mammary artery to the left anterior descending artery. Patient was extubated last night uneventfully, tolerated the extubation quite well, and he seems to be doing well today. Patient has a bit of nausea and dizziness, pain seems to be fairly well controlled. Objective - Vital Signs Vital signs: Vital Signs Temp 97.9 F 01/08/17 14:00 Pulse 80 01/09/17 10:00 Resp 27 H 01/09/17 10:00 BP 106/66 01/08/17 20:30 Pulse Ox 94 L 01/09/17 10:00 Intake & Output 01/08/17 01/09/17 01/09/17 18:59 06:59 18:59 Intake Total 387.767 2197.941 486 Output Total 1616 663 558 Balance -682.129 845.941 -72 Weight 84.9 kg 89.1 kg 89.1 kg Intake: IV 33 169 66 CO/CI 70 30 Pressure bag 99 36 Intake, IV Titration 144.368 0204.941 300 Amount ACETAMINOPHEN IV (For NPO 100 100 ) 1,000 mg In Empty Bag 1 bag @ 400 mls/hr IVPB Q6HR [facility] Rx#:[id number] Albumin Human 5% 250 ml 250 In Empty Bag 1 bag @ 250 mls/hr IVPB Q1HR PRN Rx#: [id number] Calcium Gluconate 2,000 100 mg In Sodium Chloride 0.9 % 100 ml @ 100 mls/hr IVPB ONCE ONE Rx#: [id number] Clevidipine Butyrate 25 4.267 0 mg In Empty Bag 1 bag @ 1 MG/HR 2 mls/hr IV .Q24H ONE Rx#:[id number] Insulin Regular 100 unit 18.691 0 In Sodium Chloride 0.9% 100 ml @ Per Protocol IV .Q0M [facility] Rx#:[id number] Lactated Ringers 1,000 ml 350 600 200 @ 20 mls/hr IV .Q24H [facility] Rx#:[id number] Magnesium Sulfate-D5w Pmx 200 1 gm In Dextrose/Water 1 100ml.bag @ 100 mls/hr IVPB Q1H [facility] Rx#: [id number] Nitroglycerin-D5w Pmx 50 21.175 171.25 0 mg In Dextrose/Water 1 250ml.bag @ 5 MCG/MIN 1.5 mls/hr IV .Q24H [facility] Rx#: [id number] Potassium Chloride 20 meq 100 In Water For Injection 1 100ml.bag @ 50 mls/hr IVPB ONCE ONE Rx#: [id number] Propofol 500 mg In Empty 70 Bag 1 bag @ Titrate IV . Q0M ONE Rx#:[id number] Propofol 500 mg In Empty 55.429 Bag 1 bag @ Titrate IV . Q0M [facility] Rx#:[id number] ceFAZolin 2 gm In Sodium 100 100 Chloride 0.9% 100 ml @ 100 mls/hr IVPB Q8HR [facility] Rx#:[id number] Oral 120 Output: Chest Tube Drainage 416 256 68 Chest Tube Left Pleural/ 100 76 28 Mediastinal Chest Tube Mediastinal 316 180 40 Urine 900 407 490 Estimated Blood Loss 300 Other: Voiding Method Indwelling Catheter Indwelling Catheter # Voids 2 2 ABP, PAP, CO, CI - Last Documented Arterial Blood Pressure 147/72 Pulmonary Artery Pressure 27/11 Cardiac Output 7.5 Cardiac Index 3.9 - Exam Physical Exam: Revealed a 61-year-old in no distress on nasal cannula. Continues to have a mediastinal chest tube and a left pleural chest tube no air leaks in both tubes. HEENT:[Neck is supple.] [No neck masses.] [No thyromegaly.] [No JVD.] Chest: [Diminished breath sounds and crackles at the bases no rhonchi and no wheezes.] Cardiac Exam: [Normal S1 and S2, no S3 gallop, no murmur. Positive pericardial rub] Abdomen: [Soft, nontender, no megaly, no rebound, no guarding, normal bowel sounds.] Extremities: [No clubbing, no edema, no cyanosis.] Neurological Exam: [No focal neurologic deficit.] - Labs CBC & Chem 7: 01/09/17 03:10 01/09/17 03:10 Labs: Abnormal Lab Results - Last 24 Hours (Table) 01/07/17 01/08/17 01/08/17 Range/Units 15:03 08:20 09:44 WBC (3.8-10.6) k/uL RBC (4.30-5.90) m/uL Hgb (13.0-17.5) gm/dL Hct (39.0-53.0) % Neutrophils # (1.3-7.7) k/uL Lymphocytes # (1.0-4.8) k/uL APTT (22.0-30.0) sec ABG pH (7.35-7.45) ABG pCO2 (35-45) mmHg ABG pO2 391 H 375 H (83-108) mmHg ABG HCO3 (21-25) mmol/L ABG O2 Saturation 100.0 H 99.9 H (94-97) % Sodium (137-145) mmol/L Chloride (98-107) mmol/L Carbon Dioxide (22-30) mmol/L Glucose (74-99) mg/dL POC Glucose (mg/dL) (75-99) mg/dL Calcium (8.4-10.2) mg/dL Magnesium (1.6-2.3) mg/dL Total Bilirubin (0.2-1.3) mg/dL Total Protein (6.3-8.2) g/dL Albumin (3.5-5.0) g/dL Crossmatch See Detail 01/08/17 01/08/17 01/08/17 Range/Units 11:02 12:14 12:14 WBC (3.8-10.6) k/uL RBC 3.50 L (4.30-5.90) m/uL Hgb 11.4 L (13.0-17.5) gm/dL Hct 33.4 L (39.0-53.0) % Neutrophils # 8.5 H (1.3-7.7) k/uL Lymphocytes # (1.0-4.8) k/uL APTT (22.0-30.0) sec ABG pH 7.34 L (7.35-7.45) ABG pCO2 (35-45) mmHg ABG pO2 363 H (83-108) mmHg ABG HCO3 (21-25) mmol/L ABG O2 Saturation 99.9 H (94-97) % Sodium (137-145) mmol/L Chloride 108 H (98-107) mmol/L Carbon Dioxide (22-30) mmol/L Glucose (74-99) mg/dL POC Glucose (mg/dL) (75-99) mg/dL Calcium 7.7 L (8.4-10.2) mg/dL Magnesium (1.6-2.3) mg/dL Total Bilirubin (0.2-1.3) mg/dL Total Protein 5.3 L (6.3-8.2) g/dL Albumin 3.2 L (3.5-5.0) g/dL Crossmatch 01/08/17 01/08/17 01/08/17 Range/Units 12:45 16:03 16:05 WBC (3.8-10.6) k/uL RBC 3.73 L (4.30-5.90) m/uL Hgb 12.3 L (13.0-17.5) gm/dL Hct 36.4 L (39.0-53.0) % Neutrophils # 8.4 H (1.3-7.7) k/uL Lymphocytes # (1.0-4.8) k/uL APTT (22.0-30.0) sec ABG pH 7.29 L (7.35-7.45) ABG pCO2 47 H (35-45) mmHg ABG pO2 248 H (83-108) mmHg ABG HCO3 (21-25) mmol/L ABG O2 Saturation 100.0 H (94-97) % Sodium (137-145) mmol/L Chloride (98-107) mmol/L Carbon Dioxide (22-30) mmol/L Glucose (74-99) mg/dL POC Glucose (mg/dL) 103 H (75-99) mg/dL Calcium (8.4-10.2) mg/dL Magnesium (1.6-2.3) mg/dL Total Bilirubin (0.2-1.3) mg/dL Total Protein (6.3-8.2) g/dL Albumin (3.5-5.0) g/dL Crossmatch 01/08/17 01/08/17 01/08/17 Range/Units 17:12 17:55 18:16 WBC (3.8-10.6) k/uL RBC (4.30-5.90) m/uL Hgb (13.0-17.5) gm/dL Hct (39.0-53.0) % Neutrophils # (1.3-7.7) k/uL Lymphocytes # (1.0-4.8) k/uL APTT (22.0-30.0) sec ABG pH (7.35-7.45) ABG pCO2 (35-45) mmHg ABG pO2 (83-108) mmHg ABG HCO3 19 L (21-25) mmol/L ABG O2 Saturation (94-97) % Sodium (137-145) mmol/L Chloride (98-107) mmol/L Carbon Dioxide (22-30) mmol/L Glucose (74-99) mg/dL POC Glucose (mg/dL) 138 H 127 H (75-99) mg/dL Calcium (8.4-10.2) mg/dL Magnesium (1.6-2.3) mg/dL Total Bilirubin (0.2-1.3) mg/dL Total Protein (6.3-8.2) g/dL Albumin (3.5-5.0) g/dL Crossmatch 01/08/17 01/08/17 01/08/17 Range/Units 19:02 20:05 20:05 WBC 12.1 H (3.8-10.6) k/uL RBC 3.78 L (4.30-5.90) m/uL Hgb 12.5 L (13.0-17.5) gm/dL Hct 36.0 L (39.0-53.0) % Neutrophils # 10.9 H (1.3-7.7) k/uL Lymphocytes # 0.5 L (1.0-4.8) k/uL APTT 19.8 L (22.0-30.0) sec ABG pH (7.35-7.45) ABG pCO2 (35-45) mmHg ABG pO2 (83-108) mmHg ABG HCO3 (21-25) mmol/L ABG O2 Saturation (94-97) % Sodium (137-145) mmol/L Chloride (98-107) mmol/L Carbon Dioxide (22-30) mmol/L Glucose (74-99) mg/dL POC Glucose (mg/dL) 123 H (75-99) mg/dL Calcium (8.4-10.2) mg/dL Magnesium (1.6-2.3) mg/dL Total Bilirubin (0.2-1.3) mg/dL Total Protein (6.3-8.2) g/dL Albumin (3.5-5.0) g/dL Crossmatch 01/08/17 01/08/17 01/08/17 Range/Units 20:05 20:06 21:06 WBC (3.8-10.6) k/uL RBC (4.30-5.90) m/uL Hgb (13.0-17.5) gm/dL Hct (39.0-53.0) % Neutrophils # (1.3-7.7) k/uL Lymphocytes # (1.0-4.8) k/uL APTT (22.0-30.0) sec ABG pH (7.35-7.45) ABG pCO2 (35-45) mmHg ABG pO2 (83-108) mmHg ABG HCO3 (21-25) mmol/L ABG O2 Saturation (94-97) % Sodium 135 L (137-145) mmol/L Chloride (98-107) mmol/L Carbon Dioxide 21 L (22-30) mmol/L Glucose 144 H (74-99) mg/dL POC Glucose (mg/dL) 140 H 144 H (75-99) mg/dL Calcium (8.4-10.2) mg/dL Magnesium (1.6-2.3) mg/dL Total Bilirubin (0.2-1.3) mg/dL Total Protein (6.3-8.2) g/dL Albumin (3.5-5.0) g/dL Crossmatch 01/08/17 01/08/17 01/09/17 Range/Units 22:04 23:03 00:06 WBC (3.8-10.6) k/uL RBC (4.30-5.90) m/uL Hgb (13.0-17.5) gm/dL Hct (39.0-53.0) % Neutrophils # (1.3-7.7) k/uL Lymphocytes # (1.0-4.8) k/uL APTT (22.0-30.0) sec ABG pH (7.35-7.45) ABG pCO2 (35-45) mmHg ABG pO2 (83-108) mmHg ABG HCO3 (21-25) mmol/L ABG O2 Saturation (94-97) % Sodium (137-145) mmol/L Chloride (98-107) mmol/L Carbon Dioxide (22-30) mmol/L Glucose (74-99) mg/dL POC Glucose (mg/dL) 140 H 140 H 151 H (75-99) mg/dL Calcium (8.4-10.2) mg/dL Magnesium (1.6-2.3) mg/dL Total Bilirubin (0.2-1.3) mg/dL Total Protein (6.3-8.2) g/dL Albumin (3.5-5.0) g/dL Crossmatch 01/09/17 01/09/17 01/09/17 Range/Units 01:01 01:56 03:09 WBC (3.8-10.6) k/uL RBC (4.30-5.90) m/uL Hgb (13.0-17.5) gm/dL Hct (39.0-53.0) % Neutrophils # (1.3-7.7) k/uL Lymphocytes # (1.0-4.8) k/uL APTT (22.0-30.0) sec ABG pH (7.35-7.45) ABG pCO2 (35-45) mmHg ABG pO2 (83-108) mmHg ABG HCO3 (21-25) mmol/L ABG O2 Saturation (94-97) % Sodium (137-145) mmol/L Chloride (98-107) mmol/L Carbon Dioxide (22-30) mmol/L Glucose (74-99) mg/dL POC Glucose (mg/dL) 153 H 139 H 123 H (75-99) mg/dL Calcium (8.4-10.2) mg/dL Magnesium (1.6-2.3) mg/dL Total Bilirubin (0.2-1.3) mg/dL Total Protein (6.3-8.2) g/dL Albumin (3.5-5.0) g/dL Crossmatch 01/09/17 01/09/17 01/09/17 Range/Units 03:10 03:10 04:18 WBC 10.7 H (3.8-10.6) k/uL RBC 3.62 L (4.30-5.90) m/uL Hgb 11.9 L (13.0-17.5) gm/dL Hct 35.1 L (39.0-53.0) % Neutrophils # 8.9 H (1.3-7.7) k/uL Lymphocytes # (1.0-4.8) k/uL APTT (22.0-30.0) sec ABG pH (7.35-7.45) ABG pCO2 (35-45) mmHg ABG pO2 (83-108) mmHg ABG HCO3 (21-25) mmol/L ABG O2 Saturation (94-97) % Sodium 135 L (137-145) mmol/L Chloride (98-107) mmol/L Carbon Dioxide (22-30) mmol/L Glucose 129 H (74-99) mg/dL POC Glucose (mg/dL) 140 H (75-99) mg/dL Calcium (8.4-10.2) mg/dL Magnesium 2.7 H (1.6-2.3) mg/dL Total Bilirubin 1.4 H (0.2-1.3) mg/dL Total Protein 5.7 L (6.3-8.2) g/dL Albumin (3.5-5.0) g/dL Crossmatch 01/09/17 01/09/17 01/09/17 Range/Units 04:57 06:13 07:06 WBC (3.8-10.6) k/uL RBC (4.30-5.90) m/uL Hgb (13.0-17.5) gm/dL Hct (39.0-53.0) % Neutrophils # (1.3-7.7) k/uL Lymphocytes # (1.0-4.8) k/uL APTT (22.0-30.0) sec ABG pH (7.35-7.45) ABG pCO2 (35-45) mmHg ABG pO2 (83-108) mmHg ABG HCO3 (21-25) mmol/L ABG O2 Saturation (94-97) % Sodium (137-145) mmol/L Chloride (98-107) mmol/L Carbon Dioxide (22-30) mmol/L Glucose (74-99) mg/dL POC Glucose (mg/dL) 118 H 112 H 110 H (75-99) mg/dL Calcium (8.4-10.2) mg/dL Magnesium (1.6-2.3) mg/dL Total Bilirubin (0.2-1.3) mg/dL Total Protein (6.3-8.2) g/dL Albumin (3.5-5.0) g/dL Crossmatch 01/09/17 01/09/17 01/09/17 Range/Units 08:06 09:06 10:06 WBC (3.8-10.6) k/uL RBC (4.30-5.90) m/uL Hgb (13.0-17.5) gm/dL Hct (39.0-53.0) % Neutrophils # (1.3-7.7) k/uL Lymphocytes # (1.0-4.8) k/uL APTT (22.0-30.0) sec ABG pH (7.35-7.45) ABG pCO2 (35-45) mmHg ABG pO2 (83-108) mmHg ABG HCO3 (21-25) mmol/L ABG O2 Saturation (94-97) % Sodium (137-145) mmol/L Chloride (98-107) mmol/L Carbon Dioxide (22-30) mmol/L Glucose (74-99) mg/dL POC Glucose (mg/dL) 120 H 136 H 130 H (75-99) mg/dL Calcium (8.4-10.2) mg/dL Magnesium (1.6-2.3) mg/dL Total Bilirubin (0.2-1.3) mg/dL Total Protein (6.3-8.2) g/dL Albumin (3.5-5.0) g/dL Crossmatch Microbiology - Last 24 Hours (Table) 01/07/17 22:47 Nasal Screen MRSA/MSSA ([facility]) - Final Nasal Swab 01/07/17 19:30 Urine Culture - Final Urine,Clean Catch Assessment and Plan Plan: Impression: 1 significant LAD disease with unsuccessful PTCA attempt. Patient is now status post CABG postoperative day #1. 2 family history of premature coronary artery disease 3 history of significant left carotid artery disease 4 history of hypertension, Recommendation: Continue postoperative care measures, continue incentive spirometry, early ambulation, continue bronchodilators, and we will follow. Time with Patient: Less than 30
[2017-01-09 11:17] LABS: Glucose,Whole Blood 132 mg/dL (75-99)
[2017-01-09] MEDS: IPRATROPIUM-ALBUTEROL 3 ML NEB INHALATION SCH ×3 (11:22→19:31)
[2017-01-09] MEDS ORDERED: HYDROcodone/APAP 5-325MG 1 EACH TAB PO PRN (12:28)
[2017-01-09] MEDS ORDERED: IPRATROPIUM-ALBUTEROL 3 ML NEB INHALATION PRN (12:31)
[2017-01-09] MEDS ORDERED: MAGNESIUM HYDROXIDE 2,400 MG/10 ML CUP PO PRN (12:31)
[2017-01-09] MEDS ORDERED: BISACODYL 10 MG SUPP RECTAL PRN (12:31)
[2017-01-09 12:36] LABS: Glucose,Whole Blood 117 mg/dL (75-99)
[2017-01-09] MEDS: LACTATED RINGERS 1,000 ML IV SCH (12:40)
[2017-01-09 13:29] LABS: Glucose,Whole Blood 141 mg/dL (75-99)
[2017-01-09 14:42] LABS: Glucose,Whole Blood 145 mg/dL (75-99)
[2017-01-09 15:30] LABS: Glucose,Whole Blood 124 mg/dL (75-99)
[2017-01-09 16:25] LABS: Glucose,Whole Blood 108 mg/dL (75-99)
[2017-01-09] MEDS: NITROGLYCERIN-D5W PMX 50 MG in DEXTROSE/WATER 1 250ML.BAG IV SCH (16:26)
[2017-01-09] MEDS: HYDROcodone/APAP 5-325MG 1 EACH TAB PO PRN ×2 (16:28→20:15)
[2017-01-09 17:37] LABS: Glucose,Whole Blood 112 mg/dL (75-99)
[2017-01-09 19:24] LABS: Glucose,Whole Blood 141 mg/dL (75-99)
[2017-01-09] MEDS: SENNOSIDES-DOCUSATE SODIUM 1 EACH TAB PO SCH (20:15)
[2017-01-09 21:24] LABS: Glucose,Whole Blood 134 mg/dL (75-99)
[2017-01-09 22:18] LABS: Glucose,Whole Blood 115 mg/dL (75-99)
[2017-01-09 23:05] LABS: Glucose,Whole Blood 131 mg/dL (75-99)
[2017-01-10 00:07] LABS: Glucose,Whole Blood 120 mg/dL (75-99)
[2017-01-10] MEDS: HEPARIN SODIUM,PORCINE 5,000 UNIT/ML 1 ML VIAL SQ SCH ×4 (00:22→23:47)
[2017-01-10] MEDS: HYDROcodone/APAP 5-325MG 1 EACH TAB PO PRN ×3 (00:58→20:27)
[2017-01-10] MEDS: ONDANSETRON 4 MG/2 ML VIAL IVP PRN ×3 (00:59→20:27)
[2017-01-10 01:06] LABS: Glucose,Whole Blood 119 mg/dL (75-99)
[2017-01-10 03:18] LABS: Glucose,Whole Blood 114 mg/dL (75-99)
[2017-01-10 04:20] LABS: Glucose,Whole Blood 104 mg/dL (75-99)
[2017-01-10 05:26] LABS: Glucose,Whole Blood 115 mg/dL (75-99)
[2017-01-10 05:36] LABS: Basophils % (A) 0 %; CH 33.3; Eosinophils # (A) 0.1 k/uL (0-0.7); Eosinophils % (A) 2 %; HCT 33.6 % (39.0-53.0); HDW 2.52; HGB 11.5 gm/dL (13.0-17.5); Luc # (Auto) 0.17; Luc % (Auto) 2; Lymphocytes # (A) 1.4 k/uL (1.0-4.8); Lymphocytes % (A) 17 %; MCH 33.5 pg (25.0-35.0); MCHC 34.1 g/dL (31.0-37.0); MCV 98.4 fL (80.0-100.0); Mean Platelet Volume 7.4; Monocytes # (A) 0.4 k/uL (0-1.0); Monocytes % (A) 5 %; Neutrophils # (A) 6.2 k/uL (1.3-7.7); Neutrophils % (A) 74 %; RBC 3.42 m/uL (4.30-5.90); RDW 12.8 % (11.5-15.5); WBC 8.3 k/uL (3.8-10.6); WBC (Perox) 9.18
[2017-01-10 05:43] LABS: INR 1.1 (<1.1); Prothrombin Time 11.1 sec (9.0-12.0)
[2017-01-10 05:49] LABS: Ionized Calcium 5.2 mg/dL (4.5-5.3)
[2017-01-10 06:07] LABS: ALT 76 U/L (21-72); AST 91 U/L (17-59); Alkaline Phosphatase 90 U/L (38-126); Anion Gap 6 mmol/L; Blood Urea Nitrogen 12 mg/dL (9-20); Calcium 8.3 mg/dL (8.4-10.2); Carbon Dioxide 26 mmol/L (22-30); Chloride 105 mmol/L (98-107); Glucose 113 mg/dL (74-99); Magnesium 2.1 mg/dL (1.6-2.3); Non-African American GFR(MDRD) >60 (>60 ml/min/1.73 sqM); Sodium 137 mmol/L (137-145); Total Bilirubin 0.7 mg/dL (0.2-1.3); Total Protein 5.2 g/dL (6.3-8.2)
[2017-01-10] MEDS: KETOROLAC 30 MG/ML 1 ML VIAL IVP PRN ×3 (06:57→20:27)
[2017-01-10 07:02] LABS: Glucose,Whole Blood 90 mg/dL (75-99)
[2017-01-10] MEDS: IPRATROPIUM-ALBUTEROL 3 ML NEB INHALATION SCH ×4 (07:28→19:26)
--- NOTE | 2017-01-10 08:00 | XR ---
EXAMINATION TYPE: XR chest 1V portable DATE OF EXAM: 01/10/2017 6:31 AM COMPARISON: 01/09/2017 INDICATION: Postoperative cardiac surgery TECHNIQUE: Single frontal view of the chest is obtained. FINDINGS: The heart size is prominent. The pulmonary vasculature is normal. The lungs are clear. There is a left-sided chest tube present. No pneumothorax is evident. Right-sided sheath is present. The [place] catheter is been removed. IMPRESSION: 1. No acute pulmonary process. 2. Lines and catheters discussed above
[2017-01-10] MEDS: ASPIRIN 325 MG TAB PO SCH (08:45)
[2017-01-10] MEDS: PANTOPRAZOLE 40 MG TABLET PO SCH (08:45)
[2017-01-10] MEDS: ATORVASTATIN 40 MG TAB PO SCH (08:45)
[2017-01-10] MEDS: METOPROLOL TARTRATE 12.5 MG TAB PO SCH (08:46)
[2017-01-10] MEDS: MUPIROCIN 2% OINT 22 GM TUBE NASAL SCH ×3 (08:46→20:30)
[2017-01-10] MEDS: CLOPIDOGREL 75 MG TAB PO SCH (08:46)
[2017-01-10 09:05] LABS: Glucose,Whole Blood 170 mg/dL (75-99)
[2017-01-10 09:49] LABS: Glucose,Whole Blood 162 mg/dL (75-99)
[2017-01-10] MEDS: LISINOPRIL 2.5 MG TAB PO SCH ×2 (09:56→20:29)
--- NOTE | 2017-01-10 11:23 | P.PN ---
Progress Note - Text The patient is a 61-year-old gentleman of Dr. Sahni'ilsa for whom I am covering. This gentleman had unstable angina and disease of the left anterior descending which was unable to be angioplastied. The patient underwent median sternotomy with a limited skin incision and grafting using the left internal mammary to left anterior descending 2 days previous. Presently sitting up in the chair at the side of the bed with family. He appears to be in good spirits and alert and oriented. States he feels better than yesterday. Temperature is 99.3 axillary. With a pulse of 85 and respirations 18-26. Blood pressure is 150/85. HEENT unremarkable. Lungs are generally clear but diminished. Heart tones unremarkable. Abdomen nontender. No unusual edema Focal neurological changes. Laboratory values: White count 8.3 with a hemoglobin 11.5 and a platelet count of 163. INR is 1.1. Basic metabolic panel was unremarkable with a potassium of 4.0 and a BUN of 12 and a creatinine of 0.81 given him a GFR greater than 60. Mild elevation of his AST to 91 and ALT to 96. Albumin slightly low at 2.9. Calcium 8.3. Magnesium normal at 2.1. Chest x-ray shows no acute process. Impressions and plans: Overall this gentleman has undergone cardiac surgery for coronary artery disease limited to the left anterior descending as discussed above. He is being followed by pulmonary medicine and cardiology along with surgery. He appears to be progressing well. Apparently there are plans for transfer out of the intensive care unit. Discussed with patient and family at bedside.
[2017-01-10 11:32] LABS: Glucose,Whole Blood 93 mg/dL (75-99)
--- NOTE | 2017-01-10 11:50 | P.PN ---
Progress Note - Text CV Surgery Nursing POD: #2 median sternotomy via a limited skin incision and off-pump coronary artery bypass grafting using the left internal mammary artery to left anterior descending artery with transesophageal echocardiogram Patient awake and alert, sitting in chair, no distress noted, no specific complaints. Vital Signs: Afebrile, T-max 99.3F Vital Signs - 24 hr 01/09/17 01/09/17 01/09/17 12:00 12:30 13:00 Temperature Pulse Rate 79 76 78 Respiratory 26 H 33 H 30 H Rate Blood Pressure O2 Sat by Pulse 95 95 96 Oximetry 01/09/17 01/09/17 01/09/17 13:30 14:00 14:30 Temperature Pulse Rate 90 87 82 Respiratory 33 H 16 15 Rate Blood Pressure 129/78 O2 Sat by Pulse 94 L 96 93 L Oximetry 01/09/17 01/09/17 01/09/17 15:00 15:30 15:33 Temperature Pulse Rate 84 85 92 Respiratory 13 15 Rate Blood Pressure 114/75 114/75 O2 Sat by Pulse 94 L 94 L Oximetry 01/09/17 01/09/17 01/09/17 15:44 16:00 16:30 Temperature 98.3 F Pulse Rate 88 85 85 Respiratory 20 17 Rate Blood Pressure 114/75 114/75 O2 Sat by Pulse 94 L 94 L Oximetry 01/09/17 01/09/17 01/09/17 17:00 17:30 18:00 Temperature Pulse Rate 85 90 86 Respiratory 18 17 15 Rate Blood Pressure 133/79 O2 Sat by Pulse 99 96 95 Oximetry 01/09/17 01/09/17 01/09/17 18:30 19:00 19:30 Temperature Pulse Rate 87 82 75 Respiratory 13 15 26 H Rate Blood Pressure 133/79 98/53 98/53 O2 Sat by Pulse 94 L 96 97 Oximetry 01/09/17 01/09/17 01/09/17 20:00 20:30 21:00 Temperature 98.5 F Pulse Rate 86 88 84 Respiratory 24 20 16 Rate Blood Pressure 133/68 116/72 O2 Sat by Pulse 97 96 98 Oximetry 01/09/17 01/09/17 01/09/17 21:30 22:00 22:30 Temperature Pulse Rate 82 84 83 Respiratory 22 22 24 Rate Blood Pressure 116/72 115/70 115/70 O2 Sat by Pulse 96 97 97 Oximetry 01/09/17 01/09/17 01/10/17 23:00 23:30 00:00 Temperature 98.4 F Pulse Rate 83 82 77 Respiratory 23 22 18 Rate Blood Pressure 106/73 106/73 99/66 O2 Sat by Pulse 97 97 98 Oximetry 01/10/17 01/10/17 01/10/17 00:30 01:00 01:30 Temperature Pulse Rate 75 78 83 Respiratory 14 22 19 Rate Blood Pressure 99/66 107/69 107/69 O2 Sat by Pulse 98 99 98 Oximetry 01/10/17 01/10/17 01/10/17 02:00 03:00 03:30 Temperature Pulse Rate 74 70 73 Respiratory 14 16 20 Rate Blood Pressure 96/61 93/64 93/64 O2 Sat by Pulse 98 97 100 Oximetry 01/10/17 01/10/17 01/10/17 04:00 04:30 05:00 Temperature 98.6 F Pulse Rate 70 73 76 Respiratory 13 11 L 12 Rate Blood Pressure 103/68 103/68 97/66 O2 Sat by Pulse 99 100 99 Oximetry 01/10/17 01/10/17 01/10/17 05:30 06:00 06:30 Temperature Pulse Rate 77 84 82 Respiratory 22 24 22 Rate Blood Pressure 97/66 92/60 92/60 O2 Sat by Pulse 99 100 96 Oximetry 01/10/17 01/10/17 01/10/17 07:00 07:29 07:30 Temperature Pulse Rate 83 83 82 Respiratory 11 L 12 Rate Blood Pressure 108/68 108/68 O2 Sat by Pulse 95 97 Oximetry 01/10/17 01/10/17 01/10/17 07:40 08:00 08:30 Temperature 99.3 F Pulse Rate 87 96 100 Respiratory 21 27 H Rate Blood Pressure 104/60 94/55 O2 Sat by Pulse 94 L Oximetry 01/10/17 01/10/17 01/10/17 09:00 09:30 10:00 Temperature Pulse Rate 104 H 93 85 Respiratory 22 18 26 H Rate Blood Pressure 99/54 119/72 150/85 O2 Sat by Pulse 95 97 96 Oximetry 01/10/17 01/10/17 11:19 11:24 Temperature Pulse Rate 72 72 Respiratory Rate Blood Pressure O2 Sat by Pulse Oximetry ABP, PAP, CO, CI - Last 8 Hours Arterial Blood Pressure 105/95 Arterial Blood Pressure 104/104 Arterial Blood Pressure 100/77 Arterial Blood Pressure 100/80 Arterial Blood Pressure 105/87 Arterial Blood Pressure 92/64 Arterial Blood Pressure 90/61 Arterial Blood Pressure 101/61 Labs: Short CBC 01/10/17 Range/Units 05:20 WBC 8.3 (3.8-10.6) k/uL Hgb 11.5 L (13.0-17.5) gm/dL Hct 33.6 L (39.0-53.0) % Plt Count 163 (150-450) k/uL Neutrophils # 6.2 (1.3-7.7) k/uL BMP 01/10/17 05:20 Sodium 137 Potassium 4.0 Chloride 105 Carbon Dioxide 26 BUN 12 Creatinine 0.81 Glucose 113 H Calcium 8.3 L Liver Function 01/10/17 Range/Units 05:20 Total Bilirubin 0.7 (0.2-1.3) mg/dL AST 91 H (17-59) U/L ALT 76 H (21-72) U/L Alkaline Phosphatase 90 (38-126) U/L Albumin 2.9 L (3.5-5.0) g/dL IV Fluids: Insulin drip at 2 units per hour Lungs: Respirations are even and nonlabored, breath sounds slightly diminished in left base. O2 sat: 96% on 3 L of oxygen delivered via nasal cannula. Heart: S1S2, regular rate and rhythm, bedside telemetry shows a normal sinus rhythm to sinus tachycardia in the 90s to low 100s Sternum stable, chest incision clean with silverlon dressing clean and dry. Abdomen: Soft, Positive bowel sounds present in all 4 quadrants. CBGs: 90-141 mg/dL U/O: Patient is voiding adequate amounts of urine without difficulty Chest Tubes: Mediastinal chest tube without visible air leak and 70 mL of serosanguineous drainage over the last 12 hours. Left pleural chest tube without visible air leak and 40 mL of serosanguineous drainage over the last 12 hours Intake & Output 01/08/17 01/09/17 01/10/17 01/11/17 06:59 06:59 06:59 06:59 Intake Total 227.94 2442.812 1153.503 98 Output Total 300 2279 1758 275 Balance -72.06 163.812 -604.497 -177 Weight 84.9 kg 89.1 kg 87.4 kg 87.4 kg Active Medications Hydrocodone Bitart/Acetaminophen (Madeline 5-325) 2 each PO Q4HR PRN PRN Reason: Severe Pain Last Admin: 01/10/17 08:50 Dose: 2 each Hydrocodone Bitart/Acetaminophen (Madeline 5-325) 1 each PO Q4HR PRN PRN Reason: Moderate Pain Albuterol/Ipratropium (Duoneb 0.5 Mg-3 Mg/3 Ml Soln) 3 ml INHALATION RT-Q2H PRN PRN Reason: Shortness Of Breath Or Wheezing Albuterol/Ipratropium (Duoneb 0.5 Mg-3 Mg/3 Ml Soln) 3 ml INHALATION RT-QID [facility] Last Admin: 01/10/17 11:14 Dose: 3 ml Aspirin (Aspirin) 325 mg PO DAILY [facility] Last Admin: 01/10/17 08:45 Dose: 325 mg Atorvastatin Calcium (Lipitor) 40 mg PO DAILY [facility] Last Admin: 01/10/17 08:45 Dose: 40 mg Benzocaine/Menthol (Cepacol Lozenge) 1 each MUCOUS MEM Q2H PRN PRN Reason: Sore Throat Bisacodyl (Dulcolax) 10 mg RECTAL DAILY PRN PRN Reason: Constipation Clopidogrel Bisulfate (Plavix) 75 mg PO DAILY [facility] Last Admin: 01/10/17 08:46 Dose: 75 mg Heparin Sodium (Porcine) (Heparin) 5,000 unit SQ Q8HR [facility] Last Admin: 01/10/17 08:45 Dose: 5,000 unit Albumin Human 250 ml/ IV (Solution) 250 mls @ 250 mls/hr IVPB Q1HR PRN PRN Reason: For Volume Stop: 01/10/17 12:41 Last Admin: 01/08/17 21:34 Dose: 250 mls/hr Lactated Ringer's (Lactated Ringers) 1,000 mls @ 20 mls/hr IV .Q24H [facility] Last Admin: 01/09/17 12:40 Dose: 20 mls/hr Nitroglycerin/Dextrose 50 mg/ (IV Solution) 250 mls @ 1.5 mls/hr IV .Q24H [facility] PRN Reason: 5 MCG/MIN Last Admin: 01/09/17 16:26 Dose: Not Given Insulin Human Lispro (Humalog) 0 unit SQ ACHS [facility] PRN Reason: Protocol Ketorolac Tromethamine (Toradol) 15 mg IVP Q6HR PRN PRN Reason: pain Stop: 01/12/17 18:59 Last Admin: 01/10/17 06:57 Dose: 15 mg Lisinopril (Zestril) 2.5 mg PO BID [facility] Last Admin: 01/10/17 09:56 Dose: 2.5 mg Magnesium Hydroxide (Milk Of Magnesia) 2,400 mg PO BID PRN PRN Reason: Constipation Metoprolol Tartrate (Lopressor) 12.5 mg PO BID [facility] Last Admin: 01/10/17 08:46 Dose: 12.5 mg Miscellaneous Information (Magnesium Per Protocol) 1 each MISCELLANE DAILY PRN ; Protocol PRN Reason: Per Protocol Miscellaneous Information (Phosphorus Per Protocol) 1 each MISCELLANE DAILY PRN ; Protocol PRN Reason: Per Protocol Miscellaneous Information (Potassium Per Protocol) 1 each MISCELLANE DAILY PRN ; Protocol PRN Reason: Per Protocol Mupirocin (Bactroban Oint) 1 applic NASAL BID [facility] Stop: 01/11/17 21:01 Last Admin: 01/10/17 08:46 Dose: 1 applic Ondansetron HCl (Zofran) 4 mg IVP Q6HR PRN PRN Reason: Nausea And Vomiting Last Admin: 01/10/17 08:50 Dose: 4 mg Pantoprazole Sodium (Protonix) 40 mg PO [id number] [facility] Last Admin: 01/10/17 08:45 Dose: 40 mg Senna/Docusate Sodium (Senokot-S) 2 each PO HS [facility] Last Admin: 01/09/17 20:15 Dose: 2 each Sodium Chloride (Saline Flush) 10 ml IV BID [facility] Last Admin: 01/10/17 08:46 Dose: Not Given Plan: Status post CABG day #2. Good progress. Chest tubes with minimal drainage-will discontinue. Discontinue Cordis and arterial line. Increase beta laura. Continue aggressive pulmonary toilet utilizing incentive spirometry, coughing and deep breathing, and inhalation treatments per respiratory therapy. Continue to increase activity as tolerated. Transfer to [facility].
--- NOTE | 2017-01-10 12:05 | P.PN ---
Subjective Principal diagnosis: Status post CABG, off pump, single-vessel, LAD to the left anterior descending artery. Postoperative day #1, status post median sternotomy off pump coronary artery bypass grafting using the left internal mammary artery to the left anterior descending artery. Patient was extubated uneventfully, tolerated the extubation quite well, and he seems to be doing well today. Patient has a bit of nausea and dizziness, pain seems to be fairly well controlled. Reevaluated on 01/10/2017, his postoperative day #2 continues to do quite well, hemodynamically stable, in no distress, complains of vague aches and pains, no shortness of breath, no fever, no chills, no hemoptysis. Labs and chest x-ray were reviewed. Objective - Vital Signs Vital signs: Vital Signs Temp 99.3 F 01/10/17 08:00 Pulse 72 01/10/17 11:24 Resp 26 H 01/10/17 10:00 BP 150/85 01/10/17 10:00 Pulse Ox 96 01/10/17 10:00 Intake & Output 01/09/17 01/10/17 01/10/17 18:59 06:59 18:59 Intake Total 914.727 238.776 98 Output Total 1158 600 275 Balance -243.273 -361.224 -177 Weight 89.1 kg 87.4 kg 87.4 kg Intake: IV 168 72 18 CO/CI 60 Pressure bag 108 72 18 Intake, IV Titration 426.727 166.776 80 Amount Insulin Regular 100 unit 11.127 6.776 In Sodium Chloride 0.9% 100 ml @ Per Protocol IV .Q0M [facility] Rx#:[id number] Lactated Ringers 1,000 ml 300 160 80 @ 20 mls/hr IV .Q24H [facility] Rx#:[id number] Nitroglycerin-D5w Pmx 50 15.6 mg In Dextrose/Water 1 250ml.bag @ 5 MCG/MIN 1.5 mls/hr IV .Q24H [facility] Rx#: [id number] ceFAZolin 2 gm In Sodium 100 Chloride 0.9% 100 ml @ 100 mls/hr IVPB Q8HR [facility] Rx#:[id number] Oral 320 0 Output: Chest Tube Drainage 258 60 150 Chest Tube Left Pleural/ 138 20 60 Mediastinal Chest Tube Mediastinal 120 40 90 Urine 900 540 125 Other: Voiding Method Urinal Urinal Urinal # Voids 2 ABP, PAP, CO, CI - Last Documented Arterial Blood Pressure 105/95 Pulmonary Artery Pressure 39/18 Cardiac Output 6 Cardiac Index 3.9 - Exam Physical Exam: Revealed a 61-year-old in no distress on nasal cannula. In no distress HEENT:[Neck is supple.] [No neck masses.] [No thyromegaly.] [No JVD.] Chest: [Diminished breath sounds and crackles at the bases no rhonchi and no wheezes.] Cardiac Exam: [Normal S1 and S2, no S3 gallop, no murmur. Positive pericardial rub] Abdomen: [Soft, nontender, no megaly, no rebound, no guarding, normal bowel sounds.] Extremities: [No clubbing, no edema, no cyanosis.] Neurological Exam: [No focal neurologic deficit.] - Labs CBC & Chem 7: 01/10/17 05:20 01/10/17 05:20 Labs: Abnormal Lab Results - Last 24 Hours (Table) 01/09/17 01/09/17 01/09/17 Range/Units 12:35 13:28 14:40 RBC (4.30-5.90) m/uL Hgb (13.0-17.5) gm/dL Hct (39.0-53.0) % Glucose (74-99) mg/dL POC Glucose (mg/dL) 117 H 141 H 145 H (75-99) mg/dL Calcium (8.4-10.2) mg/dL AST (17-59) U/L ALT (21-72) U/L Total Protein (6.3-8.2) g/dL Albumin (3.5-5.0) g/dL 01/09/17 01/09/17 01/09/17 Range/Units 15:29 16:22 17:36 RBC (4.30-5.90) m/uL Hgb (13.0-17.5) gm/dL Hct (39.0-53.0) % Glucose (74-99) mg/dL POC Glucose (mg/dL) 124 H 108 H 112 H (75-99) mg/dL Calcium (8.4-10.2) mg/dL AST (17-59) U/L ALT (21-72) U/L Total Protein (6.3-8.2) g/dL Albumin (3.5-5.0) g/dL 01/09/17 01/09/17 01/09/17 Range/Units 19:07 21:21 22:16 RBC (4.30-5.90) m/uL Hgb (13.0-17.5) gm/dL Hct (39.0-53.0) % Glucose (74-99) mg/dL POC Glucose (mg/dL) 141 H 134 H 115 H (75-99) mg/dL Calcium (8.4-10.2) mg/dL AST (17-59) U/L ALT (21-72) U/L Total Protein (6.3-8.2) g/dL Albumin (3.5-5.0) g/dL 01/09/17 01/10/17 01/10/17 Range/Units 23:03 00:05 01:04 RBC (4.30-5.90) m/uL Hgb (13.0-17.5) gm/dL Hct (39.0-53.0) % Glucose (74-99) mg/dL POC Glucose (mg/dL) 131 H 120 H 119 H (75-99) mg/dL Calcium (8.4-10.2) mg/dL AST (17-59) U/L ALT (21-72) U/L Total Protein (6.3-8.2) g/dL Albumin (3.5-5.0) g/dL 01/10/17 01/10/17 01/10/17 Range/Units 03:15 04:17 05:20 RBC (4.30-5.90) m/uL Hgb (13.0-17.5) gm/dL Hct (39.0-53.0) % Glucose 113 H (74-99) mg/dL POC Glucose (mg/dL) 114 H 104 H (75-99) mg/dL Calcium 8.3 L (8.4-10.2) mg/dL AST 91 H (17-59) U/L ALT 76 H (21-72) U/L Total Protein 5.2 L (6.3-8.2) g/dL Albumin 2.9 L (3.5-5.0) g/dL 01/10/17 01/10/17 01/10/17 Range/Units 05:20 05:22 09:03 RBC 3.42 L (4.30-5.90) m/uL Hgb 11.5 L (13.0-17.5) gm/dL Hct 33.6 L (39.0-53.0) % Glucose (74-99) mg/dL POC Glucose (mg/dL) 115 H 170 H (75-99) mg/dL Calcium (8.4-10.2) mg/dL AST (17-59) U/L ALT (21-72) U/L Total Protein (6.3-8.2) g/dL Albumin (3.5-5.0) g/dL 01/10/17 Range/Units 09:47 RBC (4.30-5.90) m/uL Hgb (13.0-17.5) gm/dL Hct (39.0-53.0) % Glucose (74-99) mg/dL POC Glucose (mg/dL) 162 H (75-99) mg/dL Calcium (8.4-10.2) mg/dL AST (17-59) U/L ALT (21-72) U/L Total Protein (6.3-8.2) g/dL Albumin (3.5-5.0) g/dL Microbiology - Last 24 Hours (Table) 01/07/17 22:47 Nasal Screen MRSA/MSSA (RAD[facility]) - Final Nasal Swab Assessment and Plan Plan: Impression: 1 significant LAD disease with unsuccessful PTCA attempt. Patient is now status post CABG postoperative day #2 2 family history of premature coronary artery disease 3 history of significant left carotid artery disease 4 history of hypertension, Recommendation: Continue postoperative care measures, continue incentive spirometry, early ambulation, continue bronchodilators, and we will follow. Time with Patient: Less than 30
[2017-01-10] MEDS ORDERED: METOPROLOL TARTRATE 12.5 MG TAB PO ONE (12:15)
[2017-01-10] MEDS: INSULIN LISPRO (humaLOG) 300 UNIT/3 ML VIAL SQ SCH ×4 (12:50→20:40)
[2017-01-10] MEDS: NITROGLYCERIN-D5W PMX 50 MG in DEXTROSE/WATER 1 250ML.BAG IV SCH (14:08)
[2017-01-10] MEDS: LACTATED RINGERS 1,000 ML IV SCH (14:09)
[2017-01-10 17:22] LABS: Glucose,Whole Blood 110 mg/dL (75-99)
[2017-01-10] MEDS: METOPROLOL TARTRATE 25 MG TAB PO SCH (20:29)
[2017-01-10] MEDS: SENNOSIDES-DOCUSATE SODIUM 1 EACH TAB PO SCH (20:31)
[2017-01-10 20:42] LABS: Glucose,Whole Blood 144 mg/dL (75-99)
[2017-01-11] MEDS: KETOROLAC 30 MG/ML 1 ML VIAL IVP PRN (02:56)
[2017-01-11 04:48] LABS: Basophils % (A) 0 %; CH 33.4; CHCM 33.6; Eosinophils # (A) 0.2 k/uL (0-0.7); Eosinophils % (A) 3 %; HCT 34.8 % (39.0-53.0); HDW 2.46; HGB 11.4 gm/dL (13.0-17.5); Luc # (Auto) 0.18; Luc % (Auto) 2; Lymphocytes # (A) 1.3 k/uL (1.0-4.8); Lymphocytes % (A) 15 %; MCH 32.7 pg (25.0-35.0); MCHC 32.7 g/dL (31.0-37.0); MCV 99.8 fL (80.0-100.0); Mean Platelet Volume 6.9; Monocytes # (A) 0.5 k/uL (0-1.0); Monocytes % (A) 6 %; Neutrophils # (A) 6.1 k/uL (1.3-7.7); Neutrophils % (A) 74 %; RBC 3.49 m/uL (4.30-5.90); RDW 12.8 % (11.5-15.5); WBC 8.2 k/uL (3.8-10.6); WBC (Perox) 8.88
[2017-01-11 04:52] LABS: Ionized Calcium 5.3 mg/dL (4.5-5.3)
[2017-01-11 05:05] LABS: ALT 114 U/L (21-72); AST 82 U/L (17-59); Alkaline Phosphatase 126 U/L (38-126); Anion Gap 6 mmol/L; Blood Urea Nitrogen 14 mg/dL (9-20); Calcium 8.4 mg/dL (8.4-10.2); Carbon Dioxide 27 mmol/L (22-30); Chloride 106 mmol/L (98-107); Glucose 98 mg/dL (74-99); Magnesium 1.9 mg/dL (1.6-2.3); Non-African American GFR(MDRD) >60 (>60 ml/min/1.73 sqM); Potassium 4.3 mmol/L (3.5-5.1); Sodium 139 mmol/L (137-145); Total Bilirubin 0.7 mg/dL (0.2-1.3); Total Protein 5.1 g/dL (6.3-8.2)
[2017-01-11 07:33] LABS: Glucose,Whole Blood 99 mg/dL (75-99)
[2017-01-11] MEDS: IPRATROPIUM-ALBUTEROL 3 ML NEB INHALATION SCH ×4 (07:49→20:24)
[2017-01-11] MEDS: INSULIN LISPRO (humaLOG) 300 UNIT/3 ML VIAL SQ SCH ×4 (07:57→23:37)
[2017-01-11] MEDS: MAGNESIUM SULFATE-D5W PMX 1 GM in DEXTROSE/WATER 1 100ML.BAG IVPB SCH ×2 (08:12→10:43)
[2017-01-11] MEDS: ONDANSETRON 4 MG/2 ML VIAL IVP PRN (08:12)
[2017-01-11] MEDS: MUPIROCIN 2% OINT 22 GM TUBE NASAL SCH ×2 (08:18→08:19)
[2017-01-11] MEDS: HEPARIN SODIUM,PORCINE 5,000 UNIT/ML 1 ML VIAL SQ SCH ×2 (08:18→16:52)
[2017-01-11] MEDS: ASPIRIN 325 MG TAB PO SCH (08:18)
[2017-01-11] MEDS: ATORVASTATIN 40 MG TAB PO SCH (08:18)
[2017-01-11] MEDS: PANTOPRAZOLE 40 MG TABLET PO SCH (08:18)
[2017-01-11] MEDS: CLOPIDOGREL 75 MG TAB PO SCH (08:18)
[2017-01-11] MEDS: METOPROLOL TARTRATE 25 MG TAB PO SCH ×2 (08:23→23:36)
[2017-01-11] MEDS: HYDROcodone/APAP 5-325MG 1 EACH TAB PO PRN ×3 (08:27→20:28)
--- NOTE | 2017-01-11 08:47 | P.PN ---
<Jony Dutta T - Last Filed: 01/11/17 08:39> Progress Note - Text CV Surgery Nursing POD: #3, median sternotomy via a limited skin incision and off pump coronary artery bypass grafting using the left internal mammary artery to left anterior descending artery with transesophageal echocardiogram Patient awake and alert, sitting in chair, no distress noted, patient complains of slight nausea and incisional pain. Vital Signs: Afebrile , T-max 99.1F Vital Signs - 24 hr 01/10/17 01/10/17 01/10/17 09:00 09:30 10:00 Temperature Pulse Rate 104 H 93 85 Pulse Rate [ Algologist ] Respiratory 22 18 26 H Rate Blood Pressure 99/54 119/72 150/85 Blood Pressure [Right Arm Sitting] O2 Sat by Pulse 95 97 96 Oximetry 01/10/17 01/10/17 01/10/17 10:30 11:00 11:19 Temperature Pulse Rate 72 72 72 Pulse Rate [ Algologist ] Respiratory 20 17 Rate Blood Pressure 113/69 91/65 Blood Pressure [Right Arm Sitting] O2 Sat by Pulse 96 96 Oximetry 01/10/17 01/10/17 01/10/17 11:24 11:30 12:00 Temperature Pulse Rate 72 76 84 Pulse Rate [ Algologist ] Respiratory 17 17 Rate Blood Pressure 103/66 101/66 Blood Pressure [Right Arm Sitting] O2 Sat by Pulse 97 98 Oximetry 01/10/17 01/10/17 01/10/17 12:30 13:00 14:00 Temperature Pulse Rate 83 83 83 Pulse Rate [ Algologist ] Respiratory 27 H 27 H 19 Rate Blood Pressure 126/68 140/85 102/57 Blood Pressure [Right Arm Sitting] O2 Sat by Pulse 99 97 96 Oximetry 01/10/17 01/10/17 01/10/17 15:00 15:15 15:25 Temperature Pulse Rate 72 81 83 Pulse Rate [ Algologist ] Respiratory 21 Rate Blood Pressure 98/64 Blood Pressure [Right Arm Sitting] O2 Sat by Pulse 96 Oximetry 01/10/17 01/10/17 01/10/17 16:00 18:00 19:00 Temperature 98.3 F Pulse Rate 83 77 83 Pulse Rate [ Algologist ] Respiratory 17 24 18 Rate Blood Pressure 110/68 107/77 104/71 Blood Pressure [Right Arm Sitting] O2 Sat by Pulse 93 L Oximetry 0301/10/17 01/10/17 19:20 19:31 20:00 Temperature 98.6 F Pulse Rate 88 80 83 Pulse Rate [ Algologist ] Respiratory 21 Rate Blood Pressure 104/71 Blood Pressure [Right Arm Sitting] O2 Sat by Pulse 96 Oximetry 01/10/17 01/11/17 01/11/17 23:41 03:00 07:49 Temperature 98.1 F Pulse Rate 83 80 76 Pulse Rate [ Algologist ] Respiratory 18 21 Rate Blood Pressure 97/64 140/88 Blood Pressure [Right Arm Sitting] O2 Sat by Pulse 97 92 L Oximetry 01/11/17 08:00 Temperature 99.1 F Pulse Rate 80 Pulse Rate [ 98 Algologist ] Respiratory 14 Rate Blood Pressure Blood Pressure 148/78 [Right Arm Sitting] O2 Sat by Pulse 92 L Oximetry Labs: Short CBC 01/11/17 Range/Units 04:26 WBC 8.2 (3.8-10.6) k/uL Hgb 11.4 L (13.0-17.5) gm/dL Hct 34.8 L (39.0-53.0) % Plt Count 203 (150-450) k/uL Neutrophils # 6.1 (1.3-7.7) k/uL BMP 01/11/17 04:26 Sodium 139 Potassium 4.3 Chloride 106 Carbon Dioxide 27 BUN 14 Creatinine 0.90 Glucose 98 Calcium 8.4 Liver Function 01/11/17 Range/Units 04:26 Total Bilirubin 0.7 (0.2-1.3) mg/dL AST 82 H (17-59) U/L ALT 114 H (21-72) U/L Alkaline Phosphatase 126 (38-126) U/L Albumin 2.8 L (3.5-5.0) g/dL Lungs: Respirations are even and nonlabored, breath sounds essentially clear to auscultation , O2 sat is 92% on room air. I/S: 1000 mL, patient gave return demonstration of proper use of the device after a small amount of reeducation. Heart: S1S2, regular rate and rhythm, bedside telemetry apparently shows a normal sinus rhythm without ectopy. Sternum stable, chest incision clean with silverlon dressing clean and dry. No peripheral edema. Abdomen: Soft, Positive bowel sounds present in all 4 quadrants. No bowel movement since surgery. CBGs: 90-144 mg/dL U/O: Patient is voiding adequate amounts of urine Intake & Output 01/09/17 01/10/17 01/11/17 01/12/17 06:59 06:59 06:59 06:59 Intake Total 2442.812 1153.503 401 20 Output Total 2279 1758 675 100 Balance 163.812 -604.497 -274 -80 Weight 89.1 kg 87.4 kg 87.4 kg Active Medications Hydrocodone Bitart/Acetaminophen (Minatare 5-325) 2 each PO Q4HR PRN PRN Reason: Severe Pain Last Admin: 01/11/17 08:27 Dose: 2 each Hydrocodone Bitart/Acetaminophen ([place] 5-325) 1 each PO Q4HR PRN PRN Reason: Moderate Pain Albuterol/Ipratropium (Duoneb 0.5 Mg-3 Mg/3 Ml Soln) 3 ml INHALATION RT-Q2H PRN PRN Reason: Shortness Of Breath Or Wheezing Albuterol/Ipratropium (Duoneb 0.5 Mg-3 Mg/3 Ml Soln) 3 ml INHALATION RT-QID [facility] Last Admin: 01/11/17 07:49 Dose: 3 ml Aspirin (Aspirin) 325 mg PO DAILY [facility] Last Admin: 01/11/17 08:18 Dose: 325 mg Atorvastatin Calcium (Lipitor) 40 mg PO DAILY [facility] Last Admin: 01/11/17 08:18 Dose: 40 mg Benzocaine/Menthol (Cepacol Lozenge) 1 each MUCOUS MEM Q2H PRN PRN Reason: Sore Throat Bisacodyl (Dulcolax) 10 mg RECTAL DAILY PRN PRN Reason: Constipation Clopidogrel Bisulfate (Plavix) 75 mg PO DAILY [facility] Last Admin: 01/11/17 08:18 Dose: 75 mg Heparin Sodium (Porcine) (Heparin) 5,000 unit SQ Q8HR [facility] Last Admin: 01/11/17 08:18 Dose: 5,000 unit Lactated Ringer's (Lactated Ringers) 1,000 mls @ 20 mls/hr IV .Q24H [facility] Last Admin: 01/10/17 14:09 Dose: Not Given Nitroglycerin/Dextrose 50 mg/ (IV Solution) 250 mls @ 1.5 mls/hr IV .Q24H [facility] PRN Reason: 5 MCG/MIN Last Admin: 01/10/17 14:08 Dose: Not Given Magnesium Sulfate/Dextrose 1 (gm/ IV Solution) 100 mls @ 100 mls/hr IVPB Q1H [facility] Stop: 01/11/17 09:14 Last Admin: 01/11/17 08:12 Dose: 100 mls/hr Insulin Human Lispro (Humalog) 0 unit SQ ACHS [facility] PRN Reason: Protocol Last Admin: 01/11/17 07:57 Dose: Not Given Ketorolac Tromethamine (Toradol) 15 mg IVP Q6HR PRN PRN Reason: pain Stop: 01/12/17 18:59 Last Admin: 01/11/17 02:56 Dose: 15 mg Lisinopril (Zestril) 2.5 mg PO [facility] Last Admin: 01/10/17 20:29 Dose: 2.5 mg Magnesium Hydroxide (Milk Of Magnesia) 2,400 mg PO BID PRN PRN Reason: Constipation Metoprolol Tartrate (Lopressor) 25 mg PO BID [facility] Last Admin: 01/11/17 08:23 Dose: 25 mg Miscellaneous Information (Magnesium Per Protocol) 1 each MISCELLANE DAILY PRN ; Protocol PRN Reason: Per Protocol Miscellaneous Information (Phosphorus Per Protocol) 1 each MISCELLANE DAILY PRN ; Protocol PRN Reason: Per Protocol Miscellaneous Information (Potassium Per Protocol) 1 each MISCELLANE DAILY PRN ; Protocol PRN Reason: Per Protocol Mupirocin (Bactroban Oint) 1 applic NASAL BID [facility] Stop: 01/11/17 21:01 Last Admin: 01/11/17 08:18 Dose: 1 applic Mupirocin (Bactroban Oint) 1 applic NASAL BID [facility] Last Admin: 01/11/17 08:19 Dose: Not Given Ondansetron HCl (Zofran) 4 mg IVP Q6HR PRN PRN Reason: Nausea And Vomiting Last Admin: 01/11/17 08:12 Dose: 4 mg Pantoprazole Sodium (Protonix) 40 mg PO AC-BRKFST [facility] Last Admin: 01/11/17 08:18 Dose: 40 mg Senna/Docusate Sodium (Senokot-S) 2 each PO HS [facility] Last Admin: 01/10/17 20:31 Dose: 2 each Sodium Chloride (Saline Flush) 10 ml IV BID [facility] Last Admin: 01/11/17 08:19 Dose: Not Given Sodium Chloride (Saline Flush) 10 ml IV Q12HR [facility] Last Admin: 01/11/17 08:19 Dose: Not Given Plan: Postop day #3, CABG, good progress Continue aggressive pulmonary toilet utilizing coughing and deep breathing, incentive spirometry, and inhalation treatments per respiratory therapy. Continue to increase activity. Dulcolax suppository for constipation. Transfer to stepdown when bed available. Home soon. <Bhargav Johnston - Last Filed: 01/11/17 11:46> Progress Note - Text The patient was seen and examined. Agree with the above assessment and plan. Overall he looks great. He has been ambulating in the hallway on room air without difficulty. He still reports some incisional pain which is being treated with Minatare and Toradol. His labs were reviewed and appear to be normal. His creatinine was 0.9. We are awaiting a bed for transfer to [facility]. He will likely be discharged home in the morning.
--- NOTE | 2017-01-11 09:08 | XR ---
EXAMINATION TYPE: XR chest 2V DATE OF EXAM: 01/11/2017 6:26 AM COMPARISON: 01/10/2017 INDICATION: Status post CABG TECHNIQUE: Single frontal view of the chest is obtained. FINDINGS: The heart size is mildly prominent. The pulmonary vasculature is normal. Small posterior pleural effusion is present. Previous left-sided chest tube is been removed. Catheter sheath has been removed on the right. Sterno adeel wires are present in the patient's CABG. IMPRESSION: 1. Small posterior pleural effusion 2. No pneumothorax is evident post chest tube removal
[2017-01-11 12:21] LABS: Glucose,Whole Blood 117 mg/dL (75-99)
--- NOTE | 2017-01-11 14:03 | P.PN ---
Subjective Principal diagnosis: Status post CABG, off pump, single-vessel, LAD to the left anterior descending artery. Postoperative day #1, status post median sternotomy off pump coronary artery bypass grafting using the left internal mammary artery to the left anterior descending artery. Patient was extubated uneventfully, tolerated the extubation quite well, and he seems to be doing well today. Patient has a bit of nausea and dizziness, pain seems to be fairly well controlled. Reevaluated on 01/10/2017, his postoperative day #2 continues to do quite well, hemodynamically stable, in no distress, complains of vague aches and pains, no shortness of breath, no fever, no chills, no hemoptysis. Labs and chest x-ray were reviewed. Reevaluated today on 01/11/2017, patient is postoperative day #3 continues to do quite well. Hemodynamically stable. Denies any shortness of breath no cough no wheezing no chest pain. No nausea no vomiting no abdominal pain. CBC was reviewed, hemoglobin is 11.4, basic metabolic profile is normal. Objective - Vital Signs Vital signs: Vital Signs Temp 98.9 F 01/11/17 12:00 Pulse 83 01/11/17 12:00 Resp 14 01/11/17 12:00 BP 120/74 01/11/17 12:00 Pulse Ox 93 L 01/11/17 12:00 Intake & Output 01/10/17 01/11/17 01/11/17 18:59 06:59 18:59 Intake Total 161 240 550 Output Total 475 200 100 Balance -314 40 450 Weight 87.4 kg Intake: IV 21 Pressure bag 21 Intake, IV Titration 140 240 300 Amount Lactated Ringers 1,000 ml 140 240 100 @ 20 mls/hr IV .Q24H [facility] Rx#:[id number] Magnesium Sulfate-D5w Pmx 200 1 gm In Dextrose/Water 1 100ml.bag @ 100 mls/hr IVPB Q1H [facility] Rx#: [id number] Oral 250 Output: Chest Tube Drainage 150 Chest Tube Left Pleural/ 60 Mediastinal Chest Tube Mediastinal 90 Urine 325 200 100 Other: Voiding Method Urinal Urinal Urinal # Bowel Movements 1 ABP, PAP, CO, CI - Last Documented Arterial Blood Pressure 105/95 Pulmonary Artery Pressure 39/18 Cardiac Output 6 Cardiac Index 3.9 - Exam Physical Exam: Revealed a 61-year-old in no distress on nasal cannula. In no distress HEENT:[Neck is supple.] [No neck masses.] [No thyromegaly.] [No JVD.] Chest: [Diminished breath sounds and crackles at the bases no rhonchi and no wheezes.] Cardiac Exam: [Normal S1 and S2, no S3 gallop, no murmur. Positive pericardial rub] Abdomen: [Soft, nontender, no megaly, no rebound, no guarding, normal bowel sounds.] Extremities: [No clubbing, no edema, no cyanosis.] Neurological Exam: [No focal neurologic deficit.] - Labs CBC & Chem 7: 01/11/17 04:26 01/11/17 04:26 Labs: Abnormal Lab Results - Last 24 Hours (Table) 01/10/17 01/10/17 01/11/17 Range/Units 17:21 20:40 04:26 RBC 3.49 L (4.30-5.90) m/uL Hgb 11.4 L (13.0-17.5) gm/dL Hct 34.8 L (39.0-53.0) % POC Glucose (mg/dL) 110 H 144 H (75-99) mg/dL AST (17-59) U/L ALT (21-72) U/L Total Protein (6.3-8.2) g/dL Albumin (3.5-5.0) g/dL 01/11/17 01/11/17 Range/Units 04:26 12:20 RBC (4.30-5.90) m/uL Hgb (13.0-17.5) gm/dL Hct (39.0-53.0) % POC Glucose (mg/dL) 117 H (75-99) mg/dL AST 82 H (17-59) U/L ALT 114 H (21-72) U/L Total Protein 5.1 L (6.3-8.2) g/dL Albumin 2.8 L (3.5-5.0) g/dL Assessment and Plan Plan: Impression: 1 significant LAD disease with unsuccessful PTCA attempt. Patient is now status post CABG postoperative day #3 2 family history of premature coronary artery disease 3 history of significant left carotid artery disease 4 history of hypertension, Recommendation: Continue postoperative care measures, continue incentive spirometry, early ambulation, continue bronchodilators, and we will follow. Patient would likely transfer to [facility] today. Time with Patient: Less than 30
[2017-01-11 17:40] LABS: Glucose,Whole Blood 110 mg/dL (75-99)
--- NOTE | 2017-01-11 20:16 | PN ---
DATE OF SERVICE: 01/10/2017 This patient is status post coronary artery bypass surgery. Patient's medical records reviewed. The patient remains hemodynamically stable. the patient's chest tubes are removed. The patient is currently not getting any inotropes. Patient is afebrile. Heart rate is 80 beats per minute. Heart rate remains regular. No ( ) are noted. Blood pressure is 140/88 mm of mercury. HEART: S1 and S2 normal. Lungs are fairly clear to auscultation and percussion. The patient's lab tests are normal. Patient's Lopressor is increased to 25 mg b.i.d. We will continue the current medications.
--- NOTE | 2017-01-11 20:18 | PN ---
DATE OF SERVICE: 01/11/2017 Patient's condition remains stable. The patient's vital signs and laboratory data are reviewed. He denies any chest pain. He is comfortable. Blood pressure is 127/70 mmHg, respiratory rate is 14. Respirations are nonlabored. Heart rate is 80 per minute. First and second heart sounds are normal. Lung examination revealed a few scattered wheezes. Electrolytes are normal. Creatinine is 0.9. The patient is a transferred to the selective care unit today.
[2017-01-11 21:08] LABS: Glucose,Whole Blood 129 mg/dL (75-99)
[2017-01-11] MEDS: SENNOSIDES-DOCUSATE SODIUM 1 EACH TAB PO SCH (23:37)
[2017-01-11] MEDS: LISINOPRIL 2.5 MG TAB PO SCH (23:37)
[2017-01-12] MEDS: HEPARIN SODIUM,PORCINE 5,000 UNIT/ML 1 ML VIAL SQ SCH ×2 (00:15→07:43)
[2017-01-12 02:19] LABS: Glucose,Whole Blood 96 mg/dL (75-99)
[2017-01-12] MEDS: HYDROcodone/APAP 5-325MG 1 EACH TAB PO PRN ×3 (02:24→13:15)
[2017-01-12 06:38] LABS: Basophils % (A) 0 %; CH 33.3; CHCM 33.7; Eosinophils # (A) 0.4 k/uL (0-0.7); Eosinophils % (A) 6 %; HCT 35.4 % (39.0-53.0); HGB 11.5 gm/dL (13.0-17.5); Luc # (Auto) 0.19; Luc % (Auto) 3; Lymphocytes # (A) 1.5 k/uL (1.0-4.8); Lymphocytes % (A) 22 %; MCH 32.2 pg (25.0-35.0); MCHC 32.5 g/dL (31.0-37.0); MCV 99.2 fL (80.0-100.0); Mean Platelet Volume 6.6; Monocytes # (A) 0.4 k/uL (0-1.0); Monocytes % (A) 6 %; Neutrophils # (A) 4.2 k/uL (1.3-7.7); Neutrophils % (A) 63 %; RBC 3.57 m/uL (4.30-5.90); RDW 12.9 % (11.5-15.5); WBC 6.7 k/uL (3.8-10.6)
[2017-01-12 06:45] LABS: Ionized Calcium 5.3 mg/dL (4.5-5.3)
[2017-01-12 06:47] LABS: ALT 159 U/L (21-72); AST 105 U/L (17-59); Alkaline Phosphatase 212 U/L (38-126); Anion Gap 6 mmol/L; Blood Urea Nitrogen 14 mg/dL (9-20); Calcium 8.5 mg/dL (8.4-10.2); Carbon Dioxide 26 mmol/L (22-30); Chloride 108 mmol/L (98-107); Glucose 93 mg/dL (74-99); Non-African American GFR(MDRD) >60 (>60 ml/min/1.73 sqM); Sodium 140 mmol/L (137-145); Total Bilirubin 0.8 mg/dL (0.2-1.3); Total Protein 5.1 g/dL (6.3-8.2)
[2017-01-12] MEDS: PANTOPRAZOLE 40 MG TABLET PO SCH (06:53)
[2017-01-12] MEDS: ASPIRIN 325 MG TAB PO SCH (07:43)
[2017-01-12] MEDS: CLOPIDOGREL 75 MG TAB PO SCH (07:44)
[2017-01-12] MEDS: METOPROLOL TARTRATE 25 MG TAB PO SCH (07:44)
[2017-01-12] MEDS: INSULIN LISPRO (humaLOG) 300 UNIT/3 ML VIAL SQ SCH ×2 (07:45→11:57)
[2017-01-12 07:46] LABS: Glucose,Whole Blood 108 mg/dL (75-99)
--- NOTE | 2017-01-12 08:29 | P.PN ---
Subjective Principal diagnosis: Unstable angina, severe left anterior descending coronary artery disease not amenable to PTCA stenting, totally occluded left internal carotid artery, recently diagnosed untreated hypertension, hyperlipidemia, strong family history of coronary artery disease. POD #4 median sternotomy via a limited skin incision and off pump coronary artery bypass grafting using the left internal mammary artery to the left anterior descending artery with transesophageal echocardiogram Patient currently sitting up in chair in no apparent distress. Has been ambulating laps in the hallway. Objective - Vital Signs Vital signs: Vital Signs Temp 97.6 F 01/12/17 04:00 Pulse 85 01/12/17 04:00 Resp 16 01/12/17 04:00 BP 156/96 01/12/17 04:00 Pulse Ox 85 L 01/12/17 04:00 Intake & Output 01/11/17 01/12/17 01/12/17 18:59 06:59 18:59 Intake Total 1050 120 Output Total 325 625 Balance 725 -505 Weight 87.1 kg Intake: Intake, IV Titration 300 Amount Lactated Ringers 1,000 ml 100 @ 20 mls/hr IV .Q24H [facility] Rx#:[id number] Magnesium Sulfate-D5w Pmx 200 1 gm In Dextrose/Water 1 100ml.bag @ 100 mls/hr IVPB Q1H [facility] Rx#: [id number] Oral 750 120 Output: Urine 325 625 Other: Voiding Method Urinal Urinal # Voids 2 # Bowel Movements 1 1 ABP, PAP, CO, CI - Last Documented Arterial Blood Pressure 105/95 Pulmonary Artery Pressure 39/18 Cardiac Output 6 Cardiac Index 3.9 - Constitutional General appearance: Present: cooperative, no acute distress - Respiratory Details: Lungs sounds diminished bilaterally. Respirations even, nonlabored. Currently on room air. Able to achieve 1250 mL on his incentive spirometer. - Cardiovascular Details: S1, S2 present. Regular rate and rhythm, normal sinus rhythm on telemetry. Chest stable. Heart hugger in place with patient demonstrating appropriate use. Teds, SCDs present. No edema present. - Gastrointestinal Gastrointestinal Comment(s): Abdomen soft, nontender, nondistended. Active bowel sounds 4 quadrants. Positive bowel movement this morning. - Genitourinary Genitourinary Comment(s): Continues to void clear, yellow urine per urinal. - Musculoskeletal Musculoskeletal: Present: gait normal - Psychiatric Psychiatric: Present: A&O x's 3, appropriate affect, intact judgment & insight - Allied health notes Allied health notes reviewed: nursing - Labs CBC & Chem 7: 01/12/17 06:09 01/12/17 06:09 Labs: Abnormal Lab Results - Last 24 Hours (Table) 01/11/17 01/11/17 01/11/17 Range/Units 12:20 17:38 21:00 RBC (4.30-5.90) m/uL Hgb (13.0-17.5) gm/dL Hct (39.0-53.0) % Chloride (98-107) mmol/L POC Glucose (mg/dL) 117 H 110 H 129 H (75-99) mg/dL AST (17-59) U/L ALT (21-72) U/L Alkaline Phosphatase (38-126) U/L Total Protein (6.3-8.2) g/dL Albumin (3.5-5.0) g/dL 01/12/17 01/12/17 Range/Units 06:09 06:09 RBC 3.57 L (4.30-5.90) m/uL Hgb 11.5 L (13.0-17.5) gm/dL Hct 35.4 L (39.0-53.0) % Chloride 108 H (98-107) mmol/L POC Glucose (mg/dL) (75-99) mg/dL AST 105 H (17-59) U/L ALT 159 H (21-72) U/L Alkaline Phosphatase 212 H (38-126) U/L Total Protein 5.1 L (6.3-8.2) g/dL Albumin 2.8 L (3.5-5.0) g/dL Assessment and Plan (1) Unstable angina Status: Acute (2) Coronary artery disease Status: Acute (3) Occlusion of left internal carotid artery Status: Acute (4) Hypertension Status: Acute (5) Hyperlipidemia Status: Acute (6) Family history of coronary artery disease Status: Acute Plan: 1. Continue aspirin, Plavix. Will increase Rick, beta laura. 2. Statin stopped secondary to elevated AST/ALT. Discussed with cardiology for plan. 3. Pain control. 4. Encourage incentive spirometry use. 5. Continue ambulating in the hallway 6. GI/DVT prophylaxis. 7. We will discharge home today. Time with Patient: Greater than 30
[2017-01-12] MEDS: IPRATROPIUM-ALBUTEROL 3 ML NEB INHALATION SCH ×2 (08:39→11:50)
[2017-01-12] MEDS ORDERED: METOPROLOL TARTRATE 50 MG TAB PO SCH (09:00)
[2017-01-12] MEDS ORDERED: METOPROLOL TARTRATE 25 MG TAB PO STA (09:03)
[2017-01-12 09:06] VITALS: RESP 18; TEMP 97.8
[2017-01-12 11:33] LABS: Glucose,Whole Blood 97 mg/dL (75-99)
[2017-01-12 12:07] VITALS: BP 131/91; PULSE 81
--- NOTE | 2017-01-12 13:12 | P.PN ---
Subjective Progress note dated 01/12/2017 61-year-old gentleman who underwent a single-vessel bypass graft. He's doing relatively well. Will likely be discharged home today. Complaining of a bit of congestion in his ears. Likely has some eustachian tube dysfunction from the surgery and is an endotracheal tube. I told him what to do to clear his ears. Other than that doing well. Minute appointment for him to see me in the office a week from today. I did speak to his . Objective - Vital Signs Vital signs: Vital Signs Temp 97.8 F 01/12/17 08:00 Pulse 81 01/12/17 12:00 Resp 18 01/12/17 12:00 BP 131/91 01/12/17 12:00 Pulse Ox 96 01/12/17 12:00 Intake & Output 01/11/17 01/12/17 01/12/17 18:59 06:59 18:59 Intake Total 1050 120 280 Output Total 325 625 0 Balance 725 -505 280 Weight 87.1 kg Intake: Intake, IV Titration 300 0 Amount Lactated Ringers 1,000 ml 100 @ 20 mls/hr IV .Q24H [facility] Rx#:[id number] Magnesium Sulfate-D5w Pmx 200 1 gm In Dextrose/Water 1 100ml.bag @ 100 mls/hr IVPB Q1H [facility] Rx#: [id number] Sodium Chloride 0.9% 1, 0 000 ml As IV .[facility] Rx#:[id number] Oral 750 120 280 Output: Urine 325 625 0 Other: Voiding Method Urinal Urinal # Voids 2 # Bowel Movements 1 1 ABP, PAP, CO, CI - Last Documented Arterial Blood Pressure 105/95 Pulmonary Artery Pressure 39/18 Cardiac Output 6 Cardiac Index 3.9 - Exam No acute distress, oriented 3. HEENT examination is grossly unremarkable. Neck supple. Full range of motion. No adenopathy. Cardiovascular examination reveals regular rhythm rate. S1-S2 normal. No heart murmur. Lungs are clear breath sounds are equal. He is wearing his Heart Hugger. T he rest of the examination including the abdomen extremities are normal. - Labs CBC & Chem 7: 01/12/17 06:09 01/12/17 06:09 Labs: Abnormal Lab Results - Last 24 Hours (Table) 01/11/17 01/11/17 01/12/17 Range/Units 17:38 21:00 06:09 RBC 3.57 L (4.30-5.90) m/uL Hgb 11.5 L (13.0-17.5) gm/dL Hct 35.4 L (39.0-53.0) % Chloride (98-107) mmol/L POC Glucose (mg/dL) 110 H 129 H (75-99) mg/dL AST (17-59) U/L ALT (21-72) U/L Alkaline Phosphatase (38-126) U/L Total Protein (6.3-8.2) g/dL Albumin (3.5-5.0) g/dL 01/12/17 01/12/17 Range/Units 06:09 07:44 RBC (4.30-5.90) m/uL Hgb (13.0-17.5) gm/dL Hct (39.0-53.0) % Chloride 108 H (98-107) mmol/L POC Glucose (mg/dL) 108 H (75-99) mg/dL AST 105 H (17-59) U/L ALT 159 H (21-72) U/L Alkaline Phosphatase 212 H (38-126) U/L Total Protein 5.1 L (6.3-8.2) g/dL Albumin 2.8 L (3.5-5.0) g/dL Assessment and Plan (1) Coronary artery disease Status: Acute (2) Family history of coronary artery disease Status: Acute (3) Hyperlipidemia Status: Acute (4) Hypertension Status: Acute (5) Occlusion of left internal carotid artery Status: Acute (6) Unstable angina Status: Acute Plan: Plan The patient be discharged home today. I made an appointment for him to see me in the office a week from today. Dr. Sahni his primary doctor may or may not be back in town. Time with Patient: Less than 30
--- NOTE | 2017-01-12 15:07 | P.PN ---
Subjective Principal diagnosis: Status post CABG This is a pleasant 61-year-old gentleman who is status post coronary bypass grafting surgery. Hemodynamically stable today, there has been a rise in liver function tests noted. We will continue him on 40 mg of Lipitor at this time. Patient feels well overall, he's been up ambulating in the hallway without any difficulty. Remaining in normal sinus rhythm. Objective - Vital Signs Vital signs: Vital Signs Temp 97.8 F 01/12/17 08:00 Pulse 81 01/12/17 12:00 Resp 18 01/12/17 12:00 BP 131/91 01/12/17 12:00 Pulse Ox 96 01/12/17 12:00 Intake & Output 01/11/17 01/12/17 01/12/17 18:59 06:59 18:59 Intake Total 1050 120 280 Output Total 325 625 0 Balance 725 -505 280 Weight 87.1 kg Intake: Intake, IV Titration 300 0 Amount Lactated Ringers 1,000 ml 100 @ 20 mls/hr IV .Q24H [facility] Rx#:[id number] Magnesium Sulfate-D5w Pmx 200 1 gm In Dextrose/Water 1 100ml.bag @ 100 mls/hr IVPB Q1H [facility] Rx#: [id number] Sodium Chloride 0.9% 1, 0 000 ml As IV .[facility] Rx#:[id number] Oral 750 120 280 Output: Urine 325 625 0 Other: Voiding Method Urinal Urinal # Voids 2 # Bowel Movements 1 1 ABP, PAP, CO, CI - Last Documented Arterial Blood Pressure 105/95 Pulmonary Artery Pressure 39/18 Cardiac Output 6 Cardiac Index 3.9 - Exam PHYSICAL EXAMINATION: HEENT: Head is atraumatic, normocephalic. Pupils equal, round. Neck is supple. There is no elevated jugular venous pressure. HEART EXAMINATION: Heart S1, S2 normal. No murmur or gallop heard. CHEST EXAMINATION: Lungs are clear to auscultation and precussion. No chest wall tenderness is noted on palpation or with deep breathing. ABDOMEN: Soft, nontender. Bowel sounds are heard. No organomegaly noted. EXTREMITIES: 2+ peripheral pulses with no evidence of peripheral edema and no calf tenderness noted. NEUROLOGIC patient is awake, alert and oriented -3. . - Labs CBC & Chem 7: 01/12/17 06:09 01/12/17 06:09 Labs: Abnormal Lab Results - Last 24 Hours (Table) 01/11/17 01/11/17 01/12/17 Range/Units 17:38 21:00 06:09 RBC 3.57 L (4.30-5.90) m/uL Hgb 11.5 L (13.0-17.5) gm/dL Hct 35.4 L (39.0-53.0) % Chloride (98-107) mmol/L POC Glucose (mg/dL) 110 H 129 H (75-99) mg/dL AST (17-59) U/L ALT (21-72) U/L Alkaline Phosphatase (38-126) U/L Total Protein (6.3-8.2) g/dL Albumin (3.5-5.0) g/dL 01/12/17 01/12/17 Range/Units 06:09 07:44 RBC (4.30-5.90) m/uL Hgb (13.0-17.5) gm/dL Hct (39.0-53.0) % Chloride 108 H (98-107) mmol/L POC Glucose (mg/dL) 108 H (75-99) mg/dL AST 105 H (17-59) U/L ALT 159 H (21-72) U/L Alkaline Phosphatase 212 H (38-126) U/L Total Protein 5.1 L (6.3-8.2) g/dL Albumin 2.8 L (3.5-5.0) g/dL Assessment and Plan Plan: Assessment and Plan #1 status post coronary bypass grafting surgery #2 hyperlipidemia #3 hypertension #4 abnormal liver enzymes Plan From cardiology's perspective, patient may be able to be discharged home once cleared by the surgeon. We will make him a follow-up appointment in the office post discharge. DNP note has been reviewed, I agree with a documented findings and plan of care. Patient was seen and examined.
[2017-01-12] MEDS ORDERED: ATORVASTATIN 40 MG TAB PO SCH (21:00)
[2017-01-12] MEDS ORDERED: LISINOPRIL 5 MG TAB PO SCH (21:00)
--- NOTE | 2017-01-16 19:54 | P.DS ---
Providers Date of admission: 01/08/17 09:35 Attending physician: Theresa Felix Consults: 01/07/17 08:16 Consult Physician Routine Consulting Provider: [facility] Consult Reason/Comments: Post Interventional patient Do you want consulting provider notified?: Already Contacted 01/07/17 13:01 Consult Physician Routine Consulting Provider: Theresa Felix Consult Reason/Comments: lesion lad Do you want consulting provider notified?: Already Contacted 01/07/17 14:43 Consult Anesthesia Routine Consulting Provider: Anesthesia,Services Consult Reason/Comments: Cardiac Surgery Pre-Op Consult Physician Routine Consulting Provider: Cesario Medina Consult Reason/Comments: pre-op cabg, known to you Do you want consulting provider notified?: Yes Consult Physician Routine Consulting Provider: Sumit Sahni Consult Reason/Comments: med management Do you want consulting provider notified?: Yes Primary care physician: Sumit Sahni - Discharge Diagnosis(es) (1) Unstable angina Current Visit: Yes Status: Acute (2) Coronary artery disease Current Visit: Yes Status: Acute (3) Occlusion of left internal carotid artery Current Visit: Yes Status: Acute (4) Hypertension Current Visit: Yes Status: Acute (5) Hyperlipidemia Current Visit: Yes Status: Acute (6) Family history of coronary artery disease Current Visit: Yes Status: Acute Hospital Course: FINAL DIAGNOSIS: 1.[Unstable angina] 2.[Severe left anterior descending coronary artery disease not amenable to PTCA stenting] 3.[Totally occluded left internal carotid artery] 4.[Recently diagnosed and treated hypertension] 5.[Hyperlipidemia] 6.[Strong family history of coronary artery disease] PRINCIPAL PROCEDURE: [] 1.[Median sternotomy via a limited skin incision and off-pump coronary artery bypass grafting using the left internal mammary artery to the left anterior descending artery ] 2.[Intraoperative transesophageal echocardiogram] 3.[Epi-aortic scanning] HISTORY OF PRESENT ILLNESS: [This 61-year-old gentleman with a strong family history of premature coronary artery disease and a recent episode of chest pain was initially evaluated at the [facility] where acute coronary syndrome was ruled out. He had seen Dr. Medina for follow-up as his primary care physician was out of town. He was then referred to Dr. Villalobos, had an abnormal stress test, and subsequently went for cardiac catheterization which demonstrated significant mid LAD disease. PTCA stenting was attempted but was unsuccessful in view of heavy calcification. Cardiothoracic surgery consult was called. Dr. Felix had an extensive discussion with the patient and his , all risks and benefits were explained, and he elected to proceed with surgery.] HOSPITAL COURSE:[This gentleman was kept inpatient secondary to the severity of his disease. On 01/08/17 he was taken to the operating room. Dr. Felix performed an urgent off-pump coronary artery bypass grafting using the left internal mammary artery to the left anterior descending artery through a median sternotomy via a limited skin incision, intraoperative transesophageal echocardiogram, and epi-aortic scanning. Upon completion of the surgery the patient was subsequently transferred to the cardiovascular intensive care unit where he was recovered, monitored hemodynamically, and where he progressed to cardiac rehabilitation phase 1. He was extubated, all lines, tubes, and drips were discontinued when appropriate, and he was subsequently transferred to [address] [place] [address] for further monitoring and rehabilitation. His oxygen was titrated down, he continued to work with physical therapy, and was ready to be discharged home on postoperative day #[address] [facility] to follow.] COMPLICATIONS: [The patient experienced no complications.] CONSULTATIONS: 1.[Dr. Villalobos for cardiology] 2.[Dr. Medina for pulmonology] 3.[Dr. Sahni for medical management] DISCHARGE INSTRUCTIONS: 1. No driving for 4 weeks, or until physician gives their ok. 2. The patient should sleep in their own bed, no medical bed needed. 3. Stairs are not an issue. If the bedroom is upstairs, it is advised that the patient go up at night and down in the morning for the first week. Go slowly, using handrail and take 1 step at a time. 4. MAXI hose are to be worn for 30 days or until physician discontinues. 5. Heart hugger is to be worn 100% of the time until physician discontinues.( except when showering) 6. No lifting, pushing, or pulling more than 10 pounds for 12 weeks. The physician will advise of any restriction changes. 7. The patient is expected to continue the prescribed walking program. 8. Continue pain control per as needed orders. 9. Continue with incentive spirometry and splinting/heart hugger until otherwise directed by the physician. 10. Must shower daily using liquid antibacterial soap and a separate white washcloth for each individual incision. 11. Please remove Silverlon chest dressing on [01/15/17] with routine sternal incision care thereafter. HOME HEALTH SERVICES TO PROVIDE: RN SKILLED HOME CARE SERVICES FOR POST-OP SURGICAL PATIENTS WITH THE FOLLOWING: Coronary Artery Bypass Surgery (CABG), Mitral Valve Replacement/ Repair ( MVR), Aortic Valve Replacement/Repair (AVR) RN TO CONTINUE EDUCATION FROM ``ROAD TO A HEALTH HEART PATIENT EDUCATION MANUAL (GIVEN TO PATIENT IN THE HOSPITAL) MEDICATION RECONCILIATION WITH EDUCATION NEEDED ON FIRST HOME VISIT EMPHASIZE IMPORTANCE OF WEARING HEART HUGGER ENCOURAGE USE OF INCENTIVE SPIROMETER 10 X EVERY HOUR WHILE AWAKE ENCOURAGE UTILIZATION OF LOWER EXTREMITY COMPRESSION STOCKINGS/MAXI HOSE and ELEVATE LEGS ABOVE LEVEL OF HEART WHILE AT REST. ENCOURAGE AMBULATION 3-5x/day INCREASING TOLERATES, WHILE AVOID EXTREMES IN TEMPERATURE FREQUENCY: RN TO OPEN THE PATIENT WITHIN 24 HOURS OF DISCHARGE FROM THE HOSPITAL WITH [place] [facility] [place] VISIT 2-3 X A WEEK FOR 4 WEEKS ESTABLISHED BY PATIENT NEEDS. REMOVAL OF SUTURES: NURSING SERVICES TO REMOVE SUTURES TWO WEEKS POST SURGICAL DATE [ 01/22/17 ]. If any questions regarding suture removal please call the office at [phone]. LABORATORY: CBC, CMP TO BE DRAWN ON THE THIRD DAY HOME, 01/15/2017 (RAN STAT) FAX RESULTS TO [phone]. TELEHEALTH PARAMETERS: WEIGHT: NOTIFY MD OF WEIGHT GAIN OF 2 LBS IN 24 HOURS OR 5 LBS IN ONE WEEK HR: NOTIFY MD OF HR <55 BPM OR HR>100 BPM BP: NOTIFY MD IF BP <90/55 OR BP>140/100 O2 SAT: NOTIFY MD IF PO2<93% ON ROOM AIR SEND TELEHEALTH REPORT TO BUILDING TRADES TEACHER AND CARDIOVASCULAR SURGEON THE FIRST WEEK OF CARE AND THEN BI-WEEKLY. PLEASE ADDITIONALLY COMMUNICATE ANY ABNORMALS AND NEW FINDINGS TO THE SURGEONS OFFICE. Plan - Discharge Summary Discharge Medication List Aspirin 81 mg PO DAILY 05/15/16 [History] Cetirizine HCl [Zyrtec] 10 mg PO DAILY 05/15/16 [History] ALPRAZolam [Xanax] 0.25 mg PO TID PRN 01/06/17 [History] Nitroglycerin Sl Tabs [Nitrostat] 0.4 mg SUBLINGUAL Q5M PRN 01/06/17 [History] Atenolol [Tenormin] 25 mg PO DAILY 01/07/17 [History] Atorvastatin [Lipitor] 10 mg PO DAILY 01/07/17 [History] Isosorbide Mononitrate ER [Imdur] 30 mg PO DAILY 01/07/17 [History] LORazepam [Ativan] 0.5 mg PO BID PRN 01/07/17 [History] Vbteyjr-Dqksqtm-Cmrbdg-Dime [Blistex Lip Ointment] 1 applic TOPICAL DIRECTED PRN 01/07/17 [History] Multivitamin [Men's Multi-Vitamin] 1 tab PO DAILY 01/07/17 [History] Saline Nasal [place] 1 spray EA NOSTRIL DAILY PRN 01/07/17 [History] Tetrahydrozoline 0.05% Ophth [Visine Eye Drops] 1 drop BOTH EYES QID PRN [History] Follow up Appointment(s)/Referral(s): Vishnu Villalobos MD [STAFF PHYSICIAN] - 1 Week Theresa Felix MD [STAFF PHYSICIAN] - 1 Week Cesario Medina DO [Doctor of Osteopathic Medicine] - 1 Week Sumit Sahni MD [Primary Care Provider] - 1 Week Patient Instructions/Handouts: After Heart Catheterization - Sporting Goods Sales Manager Activity/Diet/Wound Care/Special Instructions: DISCHARGE INSTRUCTIONS: 1. No driving for 4 weeks, or until physician gives their ok. 2. The patient should sleep in their own bed, no medical bed needed. 3. Stairs are not an issue. If the bedroom is upstairs, it is advised that the patient go up at night and down in the morning for the first week. Go slowly, using handrail and take 1 step at a time. 4. MAXI hose are to be worn for 30 days or until physician discontinues. 5. Heart hugger is to be worn 100% of the time until physician discontinues.( except when showering) 6. No lifting, pushing, or pulling more than 10 pounds for 12 weeks. The physician will advise of any restriction changes. 7. The patient is expected to continue the prescribed walking program. 8. Continue pain control per as needed orders. 9. Continue with incentive spirometry and splinting/heart hugger until otherwise directed by the physician. 10. Must shower daily using liquid antibacterial soap and a separate white washcloth for each individual incision. 11. Please remove Silverlon chest dressing on [01/15/17] with routine sternal incision care thereafter. HOME HEALTH SERVICES TO PROVIDE: RN SKILLED HOME CARE SERVICES FOR POST-OP SURGICAL PATIENTS WITH THE FOLLOWING: Coronary Artery Bypass Surgery (CABG), Mitral Valve Replacement/ Repair ( MVR), Aortic Valve Replacement/Repair (AVR) RN TO CONTINUE EDUCATION FROM ``ROAD TO A HEALTH HEART PATIENT EDUCATION MANUAL (GIVEN TO PATIENT IN THE HOSPITAL) MEDICATION RECONCILIATION WITH EDUCATION NEEDED ON FIRST HOME VISIT EMPHASIZE IMPORTANCE OF WEARING HEART HUGGER ENCOURAGE USE OF INCENTIVE SPIROMETER 10 X EVERY HOUR WHILE AWAKE ENCOURAGE UTILIZATION OF LOWER EXTREMITY COMPRESSION STOCKINGS/MAXI HOSE and ELEVATE LEGS ABOVE LEVEL OF HEART WHILE AT REST. ENCOURAGE AMBULATION 3-5x/day INCREASING TOLERATES, WHILE AVOID EXTREMES IN TEMPERATURE FREQUENCY: RN TO OPEN THE PATIENT WITHIN 24 HOURS OF DISCHARGE FROM THE HOSPITAL WITH [place]HEALTH [place] [facility] [place] TO VISIT 2-3 X A WEEK FOR 4 WEEKS ESTABLISHED BY PATIENT NEEDS. REMOVAL OF SUTURES: NURSING SERVICES TO REMOVE SUTURES TWO WEEKS POST SURGICAL DATE [ 01/22/17 ]. If any questions regarding suture removal please call the office at [phone]. LABORATORY: CBC, CMP TO BE DRAWN ON THE THIRD DAY HOME, 01/15/2017 (RAN STAT) FAX RESULTS TO [phone]. TELEHEALTH PARAMETERS: WEIGHT: NOTIFY MD OF WEIGHT GAIN OF 2 LBS IN 24 HOURS OR 5 LBS IN ONE WEEK HR: NOTIFY MD OF HR <55 BPM OR HR>100 BPM BP: NOTIFY MD IF BP <90/55 OR BP>140/100 O2 SAT: NOTIFY MD IF PO2<93% ON ROOM AIR SEND TELEHEALTH REPORT TO BUILDING TRADES TEACHER AND CARDIOVASCULAR SURGEON THE FIRST WEEK OF CARE AND THEN BI-WEEKLY. PLEASE ADDITIONALLY COMMUNICATE ANY ABNORMALS AND NEW FINDINGS TO THE SURGEONS OFFICE. Discharge Disposition: HOME WITH HOME HEALTH SERVICES
--- NOTE | 2017-01-23 10:42 | PN ---
Progress Note - Text The patient is a 61-year-old gentleman of Dr. Sahni'ilsa for whom I am covering. The patient presented with unstable angina and was found to have a left anterior descending lesion that was unable to be angioplastied. Patient underwent a median sternotomy with a limited skin incision and grafting using the left internal mammary to the left anterior descending 3 days ago. Patient is sitting up in a chair in his room. He is alert and oriented. States he was able to do some walking earlier today. Denies unusual cough. No nausea or vomiting. Pain seems to be better controlled. Vital signs reveal temperature of 99.1 with a pulse of 80 and regular normal respirations of 14 and blood pressure 148/78 and he is 92% saturated on room air. Lungs are overall clear. Heart tones regular. Abdomen nontender. No unusual edema. He is alert and oriented. Cranial nerves unremarkable. No focal weakness. Laboratory: White count of 8.2 with a hemoglobin 11.4 and platelet count of 203. Basic metabolic panel is unremarkable with a potassium 4.3. GFR is greater than 60. Liver function tests are still mildly elevated with an AST of 82 and a ALT of 114 but normal bilirubin and alk phos. Albumin is 2.8. Impressions and plans: The patient is anticipating a discharge out of the intensive care unit to a stepdown unit. Continue advancement as per surgery. MTDD
--- NOTE | 2017-01-23 10:45 | PN ---
Progress Note - Text The patient is a 61-year-old gentleman of Dr. Sahni'ilsa for whom I am covering. The patient had a markedly elevated INR on presentation with gastrointestinal hemorrhage and blood loss anemia. Yesterday patient underwent upper endoscopy revealing erosive gastritis, duodenitis with a large hiatal hernia and reflux esophagitis and Chiquis. Apparently multiple biopsies were taken and are pending. He clinically does not show any signs of further bleeding. Does generally feel fatigued. No nausea or vomiting. He does have a low-grade temperature this morning 100.6. Pulse of 68 with respirations 18 and blood pressure 137/67. And he is 96% saturated on room air. Lung and heart exam was clear. Abdomen is soft and nontender. IV sites do not show any sign of phlebitis. No unusual edema. No neurological changes. Laboratory values: Blood sugar was 111. This morning's hemoglobin is pending. Impressions and plans: Once again patient with chronic atrial fibrillation presented with markedly elevated INR and blood loss anemia from upper gastrointestinal hemorrhage related to the gastritis most likely. Clinically appears to be stabilizing but last hemoglobin is 7.9. He does have a low-grade temp. Continue with therapy. Labs pending this morning. We'll check urinalysis for an occult infection. Likely if continued improvement can expect discharge back to home tomorrow pending any further recommendations from surgery. JAZMINE
== END 2017-01-12 14:24 | disposition home health service (06) | DRG 234 ==
LOC: CATHCVL 06:06 → 6SEL 08:12 → 6ICU 01-08 07:51 → CATHCVL 01-08 09:35 → 6ICU 01-08 11:51 → 6SEL 01-11 18:11
PROVIDERS: ADMIT Surgery; ATTEND Surgery
PROC: B2111ZZ Fluoroscopy of Multiple Coronary Arteries using Low Osmolar Contrast (ICD-10-PCS; 2017-01-07)
PROC: 02JA3ZZ Inspection of Heart, Percutaneous Approach (ICD-10-PCS; 2017-01-07)
PROC: 4A023N7 Measurement of Cardiac Sampling and Pressure, Left Heart, Percutaneous Approach (ICD-10-PCS; 2017-01-07 07:30)
PROC: B246ZZ4 Ultrasonography of Right and Left Heart, Transesophageal (ICD-10-PCS; 2017-01-08)
PROC: 02100Z9 Bypass Coronary Artery, One Artery from Left Internal Mammary, Open Approach (ICD-10-PCS; principal; 2017-01-08 08:00)
DX: I25.110 Atherosclerotic heart disease of native coronary artery with unstable angina pectoris (principal); I25.82 Chronic total occlusion of coronary artery; I65.22 Occlusion and stenosis of left carotid artery; I10 Essential (primary) hypertension; F41.9 Anxiety disorder, unspecified; E78.2 Mixed hyperlipidemia; Z82.49 Family history of ischemic heart disease and other diseases of the circulatory system; Z79.82 Long term (current) use of aspirin
CPT/HCPCS: 36415; 36600; 71010; 71020; 71275; 76705; 80048; 80053; 80061; 80074; 81001; 82150; 82330; 82550; 82553; 82805; 83036; 83690; 83735; 83880; 84100; 84443; 84484; 85025; 85379; 85520; 85610; 85730; 86850; 86891; 86900; 86901; 86920; 87070; 87086; 93005; 93458; 93880; 93970; 94002; 94640; 96374; 96375; 99291

== ENCOUNTER → 2017-01-15 | Outpatient (CLI) | payer BC ==
[2017-01-15 12:30] LABS: Basophils # (A) 0.1 k/uL (0-0.2); Basophils % (A) 1 %; CH 33.3; CHCM 33.6; Eosinophils # (A) 0.5 k/uL (0-0.7); Eosinophils % (A) 6 %; HCT 36.7 % (39.0-53.0); HDW 2.61; HGB 12.3 gm/dL (13.0-17.5); Luc # (Auto) 0.32; Luc % (Auto) 4; Lymphocytes # (A) 2.1 k/uL (1.0-4.8); Lymphocytes % (A) 26 %; MCH 33.3 pg (25.0-35.0); MCHC 33.5 g/dL (31.0-37.0); MCV 99.6 fL (80.0-100.0); Mean Platelet Volume 7.3; Monocytes # (A) 0.4 k/uL (0-1.0); Monocytes % (A) 4 %; Neutrophils # (A) 4.9 k/uL (1.3-7.7); Neutrophils % (A) 60 %; RBC 3.69 m/uL (4.30-5.90); RDW 13.5 % (11.5-15.5); WBC 8.2 k/uL (3.8-10.6); WBC (Perox) 8.22
[2017-01-15 12:38] LABS: ALT 246 U/L (21-72); AST 149 U/L (17-59); Alkaline Phosphatase 347 U/L (38-126); Anion Gap 10 mmol/L; Blood Urea Nitrogen 15 mg/dL (9-20); Calcium 9.2 mg/dL (8.4-10.2); Carbon Dioxide 25 mmol/L (22-30); Chloride 107 mmol/L (98-107); Glucose 87 mg/dL (74-99); Non-African American GFR(MDRD) >60 (>60 ml/min/1.73 sqM); Potassium 4.3 mmol/L (3.5-5.1); Sodium 142 mmol/L (137-145); Total Bilirubin 0.6 mg/dL (0.2-1.3); Total Protein 6.3 g/dL (6.3-8.2)
== END | disposition home or self-care (01) ==
LOC: LABWHC1 11:48
PROVIDERS: ATTEND Nurse Practitioner Acute Care
DX: Z09 Encounter for follow-up examination after completed treatment for conditions other than malignant neoplasm (principal); Z98.890 Other specified postprocedural states
CPT/HCPCS: 36415; 80053; 85025

== ENCOUNTER 2017-01-16 20:42 | Inpatient (IN) | payer BC ==
[2017-01-16] MEDS ORDERED: ASPIRIN 81 MG CHEW PO STA ×2 (20:49→20:56)
[2017-01-16] MEDS ORDERED: MORPHINE SULFATE 2 MG/ML SYRINGE IVP STA (20:49)
[2017-01-16] MEDS ORDERED: ONDANSETRON 4 MG/2 ML VIAL IVP STA (20:49)
[2017-01-16] MEDS: NITROGLYCERIN OINT 1 INCH/GM PACKET TOPICAL STA ×2 (21:01→21:43)
--- NOTE | 2017-01-16 21:01 | ED ---
General Adult HPI - General Chief complaint: Chest Pain Stated complaint: Chest pain, HX: cardiac pt Time Seen by Provider: 01/16/17 20:42 Source: patient, EMS, RN notes reviewed Mode of arrival: EMS Limitations: no limitations - History of Present Illness Initial comments: This is a 61-year-old male who just had bypass surgery one week ago. Patient wanted to [place] to have dinner and while at dinner started having severe left-sided chest pain that he described as different than the post surgical pain. Patient states the pain radiated to his back. Patient states it was 8 out of 10. Patient states EMS gave him 2 nitroglycerin and it improved his pain to a 5 out of 10. Patient also states she was significantly short of breath. Patient denies any fever chills or cough. Patient denies abdominal pain patient denies nausea vomiting diarrhea. Patient denies being lightheaded dizzy or near-syncopal episode. Patient denies any diaphoresis. Patient does state a few days ago slipped in the shower and that did cause more pain but this is different from that pain as well. - Related Data Home Medications Medication Instructions Recorded Confirmed Cetirizine HCl [Zyrtec] 10 mg PO DAILY 05/15/16 01/07/17 ALPRAZolam [Xanax] 0.25 mg PO TID PRN 01/06/17 01/07/17 Nitroglycerin Sl Tabs [Nitrostat] 0.4 mg SUBLINGUAL Q5M PRN 01/06/17 01/07/17 Swarwjj-Mkzywev-Zgngyw-Dime 1 applic TOPICAL DIRECTED PRN 01/07/17 01/07/17 [Blistex Lip Ointment] Multivitamin [Men's Multi-Vitamin] 1 tab PO DAILY 01/07/17 01/07/17 Saline Nasal [place] 1 spray EA NOSTRIL DAILY PRN 01/07/17 01/07/17 Tetrahydrozoline 0.05% Ophth 1 drop BOTH EYES QID PRN 01/07/17 01/07/17 [Visine Eye Drops] Previous Rx's Medication Instructions Recorded Aspirin 325 mg PO DAILY #30 tab 01/12/17 Atorvastatin [Lipitor] 40 mg PO HS #30 tab 01/12/17 Clopidogrel [Plavix] 75 mg PO DAILY #30 tab 01/12/17 HYDROcodone/APAP 5-325MG [[place] 1 - 2 tab PO Q6HR PRN #30 tab 01/12/17 5-325] Lisinopril [Zestril] 5 mg PO HS #30 tab 01/12/17 Metoprolol Tartrate [Lopressor] 50 mg PO BID #60 tab 01/12/17 Sennosides-Docusate Sodium 2 each PO HS tab 01/12/17 [Senokot-S] Allergies Allergy/AdvReac Type Severity Reaction Status Date / Time No Known Allergies Allergy Verified 01/07/17 15:47 Review of Systems ROS Statement: Those systems with pertinent positive or pertinent negative responses have been documented in the HPI. ROS Other: All systems not noted in ROS Statement are negative. Past Medical History Past Medical History: Chest Pain / Angina, Hyperlipidemia, Hypertension Additional Past Medical History / Comment(s): chest pressure, Was at [facility] ER & overnight Dec 2016 nausea and lightheadedness-B/p 255/165,abn stress test, BYPASS DONE 01/08/17 History of Any Multi-Drug Resistant Organisms: None Reported Past Surgical History: Orthopedic Surgery Additional Past Surgical History / Comment(s): right knee Past Anesthesia/Blood Transfusion Reactions: No Reported Reaction Additional Past Anesthesia/Blood Transfusion Reaction / Comment(s): no hx blood transfusion Past Psychological History: No Psychological Hx Reported Smoking Status: Never smoker Past Alcohol Use History: Occasional Past Drug Use History: None Reported - Past Family History Mother Family Medical History: Dementia Additional Family Medical History / Comment(s): at age 95 Father Family Medical History: Cancer Additional Family Medical History / Comment(s): at age 59 Brother(s) Family Medical History: Coronary Artery Disease (CAD), CVA/TIA Additional Family Medical History / Comment(s): Brothers x2 CABG Sister(s) Family Medical History: CVA/TIA General Exam Limitations: no limitations Course Vital Signs 01/16/17 01/16/17 01/16/17 20:46 21:02 21:18 Pulse Rate 94 80 78 Respiratory 20 16 16 Rate Blood Pressure 136/73 86/52 106/64 O2 Sat by Pulse 93 L 92 L 94 L Oximetry 01/16/17 01/16/17 21:33 21:48 Pulse Rate 80 82 Respiratory 16 16 Rate Blood Pressure 127/73 119/66 O2 Sat by Pulse 94 L 97 Oximetry Medical Decision Making - Medical Decision Making EKG shows sinus rhythm at 94 bpm with an occasional PVC KS interval 218 QRS is 82 QT interval 378 QTC is 472. Patient's EKG shows some Q waves in leads 3 and aVF he also has some T-wave flattening in the precordial leads. I spoke to Dr. Felix soon as the interview with the patient was done. A repeat EKG was done that shows normal sinus rhythm at 83 bpm KS interval is 124 QRS is 84 QT interval 442 QTC is 519 per patient's EKG shows no significant acute abnormalities. I started the patient on heparin because he unstable angina. Started patient on Levaquin, because of the potential pneumonia with a white count and the infiltrates noted on the CAT scan. I spoke with Dr. Felix a second time. He agreed with the plan of care. Spoke with Dr. Borges he agreed with the admission I admitted the patient under him. I wrote admitting orders. Consult cardiology. - Lab Data Result diagrams: 01/16/17 20:53 01/16/17 20:53 Lab Results 01/16/17 01/16/17 01/16/17 Range/Units 20:53 20:53 20:53 WBC 13.6 H (3.8-10.6) k/uL RBC 3.69 L (4.30-5.90) m/uL Hgb 12.1 L (13.0-17.5) gm/dL Hct 36.8 L (39.0-53.0) % MCV 99.7 (80.0-100.0) fL MCH 32.8 (25.0-35.0) pg MCHC 32.9 (31.0-37.0) g/dL RDW 13.5 (11.5-15.5) % Plt Count 528 H (150-450) k/uL Neutrophils % 80 % Lymphocytes % 11 % Monocytes % 4 % Eosinophils % 3 % Basophils % 0 % Neutrophils # 10.8 H (1.3-7.7) k/uL Lymphocytes # 1.6 (1.0-4.8) k/uL Monocytes # 0.6 (0-1.0) k/uL Eosinophils # 0.4 (0-0.7) k/uL Basophils # 0.0 (0-0.2) k/uL PT (9.0-12.0) sec INR (<1.1) APTT (22.0-30.0) sec D-Dimer (<0.60) mg/L FEU Sodium 139 (137-145) mmol/L Potassium 4.0 (3.5-5.1) mmol/L Chloride 105 (98-107) mmol/L Carbon Dioxide 26 (22-30) mmol/L Anion Gap 8 mmol/L BUN 13 (9-20) mg/dL Creatinine 0.99 (0.66-1.25) mg/dL Est GFR (MDRD) Af Amer >60 (>60 ml/min/1.73 sqM) Est GFR (MDRD) Non-Af >60 (>60 ml/min/1.73 sqM) Glucose 95 (74-99) mg/dL Calcium 9.1 (8.4-10.2) mg/dL Magnesium 1.9 (1.6-2.3) mg/dL Total Bilirubin 0.5 (0.2-1.3) mg/dL AST 230 H (17-59) U/L ALT 300 H (21-72) U/L Alkaline Phosphatase 441 H (38-126) U/L Total Creatine Kinase 88 (55-170) U/L CK-MB (CK-2) 1.7 (0.0-2.4) ng/mL CK-MB (CK-2) Rel Index 1.9 Troponin I 0.015 (0.000-0.034) ng/mL NT-Pro-B Natriuret Pep pg/mL Total Protein 6.3 (6.3-8.2) g/dL Albumin 3.6 (3.5-5.0) g/dL 01/16/17 01/16/17 Range/Units 20:53 20:53 WBC (3.8-10.6) k/uL RBC (4.30-5.90) m/uL Hgb (13.0-17.5) gm/dL Hct (39.0-53.0) % MCV (80.0-100.0) fL MCH (25.0-35.0) pg MCHC (31.0-37.0) g/dL RDW (11.5-15.5) % Plt Count (150-450) k/uL Neutrophils % % Lymphocytes % % Monocytes % % Eosinophils % % Basophils % % Neutrophils # (1.3-7.7) k/uL Lymphocytes # (1.0-4.8) k/uL Monocytes # (0-1.0) k/uL Eosinophils # (0-0.7) k/uL Basophils # (0-0.2) k/uL PT 10.0 (9.0-12.0) sec INR 1.0 (<1.1) APTT 22.8 (22.0-30.0) sec D-Dimer 4.30 H (<0.60) mg/L FEU Sodium (137-145) mmol/L Potassium (3.5-5.1) mmol/L Chloride (98-107) mmol/L Carbon Dioxide (22-30) mmol/L Anion Gap mmol/L BUN (9-20) mg/dL Creatinine (0.66-1.25) mg/dL Est GFR (MDRD) Af Amer (>60 ml/min/1.73 sqM) Est GFR (MDRD) Non-Af (>60 ml/min/1.73 sqM) Glucose (74-99) mg/dL Calcium (8.4-10.2) mg/dL Magnesium (1.6-2.3) mg/dL Total Bilirubin (0.2-1.3) mg/dL AST (17-59) U/L ALT (21-72) U/L Alkaline Phosphatase (38-126) U/L Total Creatine Kinase (55-170) U/L CK-MB (CK-2) (0.0-2.4) ng/mL CK-MB (CK-2) Rel Index Troponin I (0.000-0.034) ng/mL NT-Pro-B Natriuret Pep 897 pg/mL Total Protein (6.3-8.2) g/dL Albumin (3.5-5.0) g/dL Critical Care Time Critical Care Time: Yes Total Critical Care Time: 40 Disposition Clinical Impression: Unstable angina, Pulmonary edema, Pleural effusion, Pneumonia Disposition: ADMITTED IP TO THIS [facility] Time of Disposition: 23:09
[2017-01-16 21:07] LABS: Basophils % (A) 0 %; CH 33.3; CHCM 33.6; Eosinophils # (A) 0.4 k/uL (0-0.7); Eosinophils % (A) 3 %; HCT 36.8 % (39.0-53.0); HDW 2.62; HGB 12.1 gm/dL (13.0-17.5); Luc # (Auto) 0.22; Luc % (Auto) 2; Lymphocytes # (A) 1.6 k/uL (1.0-4.8); Lymphocytes % (A) 11 %; MCH 32.8 pg (25.0-35.0); MCHC 32.9 g/dL (31.0-37.0); MCV 99.7 fL (80.0-100.0); Mean Platelet Volume 6.8; Monocytes # (A) 0.6 k/uL (0-1.0); Monocytes % (A) 4 %; Neutrophils # (A) 10.8 k/uL (1.3-7.7); Neutrophils % (A) 80 %; RBC 3.69 m/uL (4.30-5.90); RDW 13.5 % (11.5-15.5); WBC 13.6 k/uL (3.8-10.6); WBC (Perox) 14.22
[2017-01-16 21:25] LABS: ALT 300 U/L (21-72); AST 230 U/L (17-59); Alkaline Phosphatase 441 U/L (38-126); Anion Gap 8 mmol/L; Blood Urea Nitrogen 13 mg/dL (9-20); Calcium 9.1 mg/dL (8.4-10.2); Carbon Dioxide 26 mmol/L (22-30); Chloride 105 mmol/L (98-107); Glucose 95 mg/dL (74-99); Magnesium 1.9 mg/dL (1.6-2.3); Non-African American GFR(MDRD) >60 (>60 ml/min/1.73 sqM); Sodium 139 mmol/L (137-145); Total Bilirubin 0.5 mg/dL (0.2-1.3); Total Protein 6.3 g/dL (6.3-8.2)
--- NOTE | 2017-01-16 21:30 | XR ---
EXAMINATION TYPE: XR chest 2V DATE OF EXAM: 01/16/2017 9:25 PM COMPARISON: 01/11/2017 HISTORY: Chest pain TECHNIQUE: Frontal and lateral views of the chest are obtained. FINDINGS: Heart is enlarged. There is mild pulmonary vascular congestion. There is blunting of costo phrenic angles and more on the left side. There is probably infiltrate in the left lower lobe. There are sternal wires. There are chest leads. Bony thorax is intact. IMPRESSION: There is mild pulmonary vascular congestion that could relate to mild heart failure. Ther e is new infiltrate in the left lower lobe compared to last exam. Cardiomegaly. Small pleural effusio ns.
[2017-01-16 21:34] LABS: Partial Thromboplastin Time 22.8 sec (22.0-30.0)
[2017-01-16] MEDS ORDERED: MORPHINE SULFATE 2 MG/ML SYRINGE IVP ONE (21:38)
[2017-01-16 21:41] LABS: Creatine Kinase MB 1.7 ng/mL (0.0-2.4); Troponin I 0.015 ng/mL (0.000-0.034)
[2017-01-16] MEDS ORDERED: RX INFO: IV CONTRAST WAS GIVEN 1 EACH MISC MISCELLANE PRN (21:44)
--- NOTE | 2017-01-16 22:31 | CT ---
EXAMINATION TYPE: CT chest angio for PE DATE OF EXAM: 01/16/2017 10:18 PM COMPARISON: NONE HISTORY: Pt states of chest pain and SOB today. Hx of bypass x1 week ago. CT DLP: 749 mGycm Automated exposure control for dose reduction was used. CONTRAST: CT Chest for pulmonary embolism performed with with IV Contrast, patient injected with 100 mL of Omni paque 350. FINDINGS: There are 3-D post processed images. There are moderate bilateral pleural effusions. Heart is enlarge d. There is patchy infiltrate and atelectasis at the lung bases. I see no filling defects in the pulm onary arteries. There is no evidence of aortic aneurysm or dissection. There is a tiny pericardial ef fusion. There is a small hiatal hernia. There is a 4 cm cortical cyst on the upper pole left kidney.. IMPRESSION: No evidence of pulmonary embolism. Bilateral pleural effusions with infiltrates and atelectasis in josephine th lower lobes. Cardiomegaly. There is probably congestive heart failure. Small hiatal hernia.
[2017-01-16] MEDS ORDERED: HEPARIN SODIUM,PORCINE 5,000 UNIT/ML 1 ML VIAL IV ONE (22:46)
[2017-01-16] MEDS ORDERED: LEVOFLOXACIN 750MG-D5W PMX 750 MG in DEXTROSE/WATER 1 150ML.BAG IVPB STA (22:47)
[2017-01-16] MEDS ORDERED: FUROSEMIDE 10 MG/ML 2 ML VIAL IV ONE (22:50)
[2017-01-16] MEDS ORDERED: HEPARIN SODIUM,PORCINE/D5W PMX 25,000 UNIT in DEXTROSE/WATER 1 500ML.BAG IV SCH (23:00)
[2017-01-16] MEDS ORDERED: LEVOFLOXACIN 750MG-D5W PMX 750 MG in DEXTROSE/WATER 1 150ML.BAG IVPB SCH (23:00)
[2017-01-16] MEDS ORDERED: NITROGLYCERIN SL TABS 0.4 MG TAB SUBLINGUAL PRN (23:12)
[2017-01-16] MEDS ORDERED: ACETAMINOPHEN TAB 500 MG TAB PO STA (23:36)
[2017-01-17] MEDS: NITROGLYCERIN OINT 1 INCH/GM PACKET TOPICAL SCH ×4 (00:01→18:38)
[2017-01-17] MEDS ORDERED: ALPRAZolam 0.25 MG TAB PO PRN (00:10)
[2017-01-17 00:32] LABS: Glucose,Whole Blood 140 mg/dL (75-99)
[2017-01-17 00:50] VITALS: BMI 27.3
[2017-01-17] MEDS: HYDROcodone/APAP 5-325MG 1 EACH TAB PO PRN ×3 (04:07→20:17)
[2017-01-17 06:15] LABS: Cholesterol 113 mg/dL (<200); HDL Cholesterol 54 mg/dL (40-60); Triglycerides 71 mg/dL (<150)
[2017-01-17 06:21] LABS: Creatine Kinase 62 U/L (55-170)
[2017-01-17 06:35] LABS: Troponin I <0.012 ng/mL (0.000-0.034)
[2017-01-17 06:49] LABS: Basophils % (A) 0 %; CH 33.1; CHCM 33.1; Eosinophils # (A) 0.1 k/uL (0-0.7); Eosinophils % (A) 1 %; HCT 36.2 % (39.0-53.0); HDW 2.54; HGB 11.8 gm/dL (13.0-17.5); Luc # (Auto) 0.25; Luc % (Auto) 3; Lymphocytes # (A) 1.5 k/uL (1.0-4.8); Lymphocytes % (A) 16 %; MCH 32.7 pg (25.0-35.0); MCHC 32.6 g/dL (31.0-37.0); MCV 100.6 fL (80.0-100.0); Macrocytosis Slight; Mean Platelet Volume 7.8; Monocytes # (A) 0.6 k/uL (0-1.0); Monocytes % (A) 6 %; Neutrophils # (A) 7.2 k/uL (1.3-7.7); Neutrophils % (A) 74 %; RDW 13.3 % (11.5-15.5); WBC 9.8 k/uL (3.8-10.6); WBC (Perox) 10.48
[2017-01-17 06:59] LABS: ALT 304 U/L (21-72); AST 184 U/L (17-59); Alkaline Phosphatase 407 U/L (38-126); Anion Gap 10 mmol/L; Blood Urea Nitrogen 14 mg/dL (9-20); Carbon Dioxide 22 mmol/L (22-30); Chloride 106 mmol/L (98-107); Glucose 103 mg/dL (74-99); Magnesium 1.9 mg/dL (1.6-2.3); Non-African American GFR(MDRD) >60 (>60 ml/min/1.73 sqM); Phosphorous 4.4 mg/dL (2.5-4.5); Potassium 4.5 mmol/L (3.5-5.1); Sodium 138 mmol/L (137-145); Total Protein 5.8 g/dL (6.3-8.2)
[2017-01-17] MEDS ORDERED: ACETAMINOPHEN IV (For NPO) 1,000 MG in EMPTY BAG 1 BAG IVPB ONE (07:27)
[2017-01-17] MEDS ORDERED: MORPHINE SULFATE 2 MG/ML SYRINGE IVP STA (07:35)
[2017-01-17] MEDS: ASPIRIN 325 MG TAB PO SCH (09:16)
[2017-01-17] MEDS: FUROSEMIDE 10 MG/ML 2 ML VIAL IV SCH ×2 (09:16→22:08)
[2017-01-17 09:50] LABS: Creatine Kinase 53 U/L (55-170)
[2017-01-17 10:02] LABS: Creatine Kinase MB 0.8 ng/mL (0.0-2.4); Troponin I <0.012 ng/mL (0.000-0.034)
[2017-01-17 12:14] LABS: Amylase 70 U/L (30-110)
[2017-01-17] MEDS ORDERED: PHENOL TOPICAL PRN (12:19)
[2017-01-17] MEDS ORDERED: CAMPHOR TOPICAL PRN (12:19)
[2017-01-17] MEDS ORDERED: DIMETHICONE TOPICAL PRN (12:19)
[2017-01-17] MEDS ORDERED: TETRAHYDROZOLINE 0.05% OPHTH DROPS 15 ML BTL BOTH EYES PRN (12:19)
[2017-01-17] MEDS ORDERED: SALINE EA NOSTRIL PRN (12:19)
[2017-01-17] MEDS ORDERED: MENTHOL TOPICAL PRN (12:19)
--- NOTE | 2017-01-17 12:42 | P.GSCN ---
History of Present Illness Consult date: 01/17/17 Reason for Consult: Status post coronary artery bypass grafting 01/08/2017, readmission for chest pain Requesting physician: London Borges History of present illness: Patient is very well known to us. Please refer to surgical consultation on 11/2016. Patient underwent an off-pump single-vessel coronary artery bypass grafting using the left internal mammary artery to the left anterior descending artery via a limited midline approach on 01/08/2017. Patient had an uneventful postoperative course. Patient was readmitted yesterday for episode of prolonged chest pain that was mainly left precordial radiating to the back partially relieved by nitroglycerin in the ER. Patient had gone out for dinner and states that he felt pretty cold before feeling. He denies associated nausea vomiting or diaphoresis. He states that he fell in the bathroom around 36 hours before this episode and felt quite a bit of anterior chest pain wall as he was holding to the wall during the fall. Workup here included serial of cardiac enzymes that were negative, CT of the chest that showed some left lower lobe atelectasis and a mild left-sided effusion with no other abnormal findings. His white blood cell count was initially elevated at around 13,000 and is normal today. He denied any productive cough or fever. Review of Systems - Cardiovascular Denies chest pain, Denies shortness of breath - Respiratory Denies cough, Denies 7 - Gastrointestinal Reports as per HPI - Genitourinary Denies dysuria, Denies hematuria - Musculoskeletal Reports as per HPI - Integumentary Denies rash, Denies unusual bruising - Neurological Denies headaches, Denies syncope - Psychiatric Reports anxiety - Hematologic/Lymphatic Denies easy bleeding, Denies easy bruising Past Medical History Past Medical History: Chest Pain / Angina, Hyperlipidemia, Hypertension Additional Past Medical History / Comment(s): chest pressure, Was at [facility] ER & overnight Dec 2016 nausea and lightheadedness-B/p 255/165,abn stress test, BYPASS DONE 01/08/17 History of Any Multi-Drug Resistant Organisms: None Reported Past Surgical History: Coronary Bypass/CABG, Orthopedic Surgery Additional Past Surgical History / Comment(s): right knee Past Anesthesia/Blood Transfusion Reactions: No Reported Reaction Additional Past Anesthesia/Blood Transfusion Reaction / Comm: no hx blood transfusion Past Psychological History: No Psychological Hx Reported Smoking Status: Never smoker Past Alcohol Use History: Occasional Past Drug Use History: None Reported - Past Family History Mother Family Medical History: Dementia Additional Family Medical History / Comment(s): at age 95 Father Family Medical History: Cancer Additional Family Medical History / Comment(s): at age 59 Brother(s) Family Medical History: Coronary Artery Disease (CAD), CVA/TIA Additional Family Medical History / Comment(s): Brothers x2 CABG Sister(s) Family Medical History: CVA/TIA Medications and Allergies Home Medications Medication Instructions Recorded Confirmed Type Cetirizine HCl [Zyrtec] 10 mg PO DAILY 05/15/16 01/16/17 History ALPRAZolam [Xanax] 0.25 mg PO TID PRN 01/06/17 01/16/17 History Nitroglycerin Sl Tabs [Nitrostat] 0.4 mg SUBLINGUAL Q5M PRN 01/06/17 01/16/17 History [place]-Dikxwez-Ollyfw-Dime 1 applic TOPICAL DIRECTED PRN 01/07/17 01/16/17 History [Blistex Lip Ointment] Multivitamin [Men's Multi-Vitamin] 1 tab PO DAILY 01/07/17 01/16/17 History Saline Nasal [place] 1 spray EA NOSTRIL DAILY PRN 01/07/17 01/16/17 History Tetrahydrozoline 0.05% Ophth 1 drop BOTH EYES QID PRN 01/07/17 01/16/17 History [Visine Eye Drops] Allergies Allergy/AdvReac Type Severity Reaction Status Date / Time No Known Allergies Allergy Verified 01/07/17 15:47 Surgical - Exam Vital Signs Pulse Resp BP Pulse Ox 94 20 136/73 93 L 01/16/17 20:46 01/16/17 20:46 01/16/17 20:46 01/16/17 20:46 - General Mild anxiety. No distress. Denies any chest pain - Eyes normal ocular movement, no icteric - ENT no hearing loss, no congestion - Respiratory left: dullness - Cardiovascular Rhythm: regular Heart Sounds: normal: S1, S2 - Abdomen Abdomen: soft, non tender, no guarding, no rigid, no rebound - Integumentary no rash, no abnormal pigmentation - Neurologic no disoriented, no combative - Psychiatric oriented to time, oriented to person, oriented to place, speech is normal, memory intact Midline sternotomy incision well-healed. Sternum stable. Chest tube site sutures 2 were removed and site well healed. No peripheral edema Results - Labs 01/17/17 05:16 01/17/17 05:16 Abnormal Lab Results - Last 24 Hours (Table) 01/17/17 01/17/17 01/17/17 Range/Units 00:30 05:16 05:16 RBC 3.60 L (4.30-5.90) m/uL Hgb 11.8 L (13.0-17.5) gm/dL Hct 36.2 L (39.0-53.0) % MCV 100.6 H (80.0-100.0) fL Glucose 103 H (74-99) mg/dL POC Glucose (mg/dL) 140 H (75-99) mg/dL AST 184 H (17-59) U/L ALT 304 H (21-72) U/L Alkaline Phosphatase 407 H (38-126) U/L Total Creatine Kinase (55-170) U/L Total Protein 5.8 L (6.3-8.2) g/dL Albumin 3.2 L (3.5-5.0) g/dL Lipase (23-300) U/L 01/17/17 01/17/17 Range/Units 05:16 09:15 RBC (4.30-5.90) m/uL Hgb (13.0-17.5) gm/dL Hct (39.0-53.0) % MCV (80.0-100.0) fL Glucose (74-99) mg/dL POC Glucose (mg/dL) (75-99) mg/dL AST (17-59) U/L ALT (21-72) U/L Alkaline Phosphatase (38-126) U/L Total Creatine Kinase 53 L (55-170) U/L Total Protein (6.3-8.2) g/dL Albumin (3.5-5.0) g/dL Lipase 310 H (23-300) U/L Diabetes panel 01/17/17 01/17/17 Range/Units 05:16 05:16 Sodium 138 (137-145) mmol/L Potassium 4.5 (3.5-5.1) mmol/L Chloride 106 (98-107) mmol/L Carbon Dioxide 22 (22-30) mmol/L BUN 14 (9-20) mg/dL Creatinine 0.80 (0.66-1.25) mg/dL Glucose 103 H (74-99) mg/dL Calcium 9.0 (8.4-10.2) mg/dL AST 184 H (17-59) U/L ALT 304 H (21-72) U/L Alkaline Phosphatase 407 H (38-126) U/L Total Protein 5.8 L (6.3-8.2) g/dL Albumin 3.2 L (3.5-5.0) g/dL Triglycerides 71 (<150) mg/dL HDL Cholesterol 54 (40-60) mg/dL Calcium panel 01/17/17 Range/Units 05:16 Calcium 9.0 (8.4-10.2) mg/dL Phosphorus 4.4 (2.5-4.5) mg/dL Albumin 3.2 L (3.5-5.0) g/dL Pituitary panel 01/17/17 Range/Units 05:16 Sodium 138 (137-145) mmol/L Potassium 4.5 (3.5-5.1) mmol/L Chloride 106 (98-107) mmol/L Carbon Dioxide 22 (22-30) mmol/L BUN 14 (9-20) mg/dL Creatinine 0.80 (0.66-1.25) mg/dL Glucose 103 H (74-99) mg/dL Calcium 9.0 (8.4-10.2) mg/dL Adrenal panel 01/17/17 Range/Units 05:16 Sodium 138 (137-145) mmol/L Potassium 4.5 (3.5-5.1) mmol/L Chloride 106 (98-107) mmol/L Carbon Dioxide 22 (22-30) mmol/L BUN 14 (9-20) mg/dL Creatinine 0.80 (0.66-1.25) mg/dL Glucose 103 H (74-99) mg/dL Calcium 9.0 (8.4-10.2) mg/dL Total Bilirubin 1.0 (0.2-1.3) mg/dL AST 184 H (17-59) U/L ALT 304 H (21-72) U/L Alkaline Phosphatase 407 H (38-126) U/L Total Protein 5.8 L (6.3-8.2) g/dL Albumin 3.2 L (3.5-5.0) g/dL - Imaging Chest x-ray: report reviewed, image reviewed CT scan - chest: report reviewed, image reviewed EKG: report reviewed, image reviewed Assessment and Plan Plan: 61 years old gentleman with past medical history of hypertension hyperlipidemia strong family history for coronary artery disease, status post off-pump coronary artery bypass grafting using left internal mammary artery to left anterior descending artery on 01/26/2017 readmitted for a prolonged episode of nonspecific chest pain. His cardiac workup is negative. He has some mild left- sided effusion. His has Elevated liver enzymes. I certainly doubt at this point that the pain is related to coronary event nor it does represent recurrent angina. We'll restart his preoperative medication in particular beta blockers and Plavix on top of the previous ordered aspirin. We will be holding a statins at this point. We'll add amylase and lipase to his previously [facility] labwork this morning in the sake of completing the workup. While the pain is atypical and she might benefit from an ultrasound of the gallbladder. We will await respective direct sales consultant input, in particular cardiology.
[2017-01-17] MEDS ORDERED: METOPROLOL TARTRATE 50 MG TAB PO SCH (13:00)
--- NOTE | 2017-01-17 13:09 | P.CNPUL ---
History of Present Illness Consult date: 01/17/17 Requesting physician: London Borges Reason for consult: dyspnea Chief complaint: Chest pain, right upper quadrant pain and shortness of breath History of present illness: This is a very pleasant 61-year-old gentleman who had recently undergone coronary artery bypass grafting on 01/08/2017. At that time he had a single bypass with a HU to the LAD. He had a fairly uncomplicated postoperative period and was subsequently discharged home on 01/12/2017. Yesterday he had been out to dinner with his and returned home and developed some chest pain along with shortness of breath and right upper quadrant pain. He presented here via EMS and he did have an elevated d-dimer and had undergone a CT angiogram which ruled out pulmonary embolism. He was noted bilateral pleural effusions with infiltrates and atelectasis in the lower lobes. No ST or T-wave abnormalities on the EKG. His troponins were negative 3. His amylase was 70, lipase 310. ProBNP 897. He was found to have elevated liver enzymes along with an elevated alk phos. An ultrasound of the liver and gallbladder are pending. Presently, he is resting quite comfortably in bed. He denies any worsening shortness of breath at this time. No cough or congestion. No chills or night sweats. He does have complaints of a headache. No recurrent chest pain or palpitations lightheadedness or dizziness. Review of Systems 14 point review of system was conducted. All negative other than as mentioned in HPI. Past Medical History Past Medical History: Chest Pain / Angina, Hyperlipidemia, Hypertension Additional Past Medical History / Comment(s): chest pressure, Was at [facility] ER & overnight Dec 2016 nausea and lightheadedness-B/p 255/165,abn stress test, coronary artery bypass grafting with a HU to the LAD on 01/08/17 History of Any Multi-Drug Resistant Organisms: None Reported Past Surgical History: Coronary Bypass/CABG, Orthopedic Surgery Additional Past Surgical History / Comment(s): right knee Past Anesthesia/Blood Transfusion Reactions: No Reported Reaction Additional Past Anesthesia/Blood Transfusion Reaction / Comment(s): no hx blood transfusion Past Psychological History: No Psychological Hx Reported Smoking Status: Never smoker Past Alcohol Use History: Occasional Past Drug Use History: None Reported - Past Family History Mother Family Medical History: Dementia Additional Family Medical History / Comment(s): at age 95 Father Family Medical History: Cancer Additional Family Medical History / Comment(s): at age 59 Brother(s) Family Medical History: Coronary Artery Disease (CAD), CVA/TIA Additional Family Medical History / Comment(s): Brothers x2 CABG Sister(s) Family Medical History: CVA/TIA Medications and Allergies Home Medications Medication Instructions Recorded Confirmed Type Cetirizine HCl [Zyrtec] 10 mg PO DAILY 05/15/16 01/16/17 History ALPRAZolam [Xanax] 0.25 mg PO TID PRN 01/06/17 01/16/17 History Nitroglycerin Sl Tabs [Nitrostat] 0.4 mg SUBLINGUAL Q5M PRN 01/06/17 01/16/17 History Eduipsb-Ulgljue-Utnfdh-Dime 1 applic TOPICAL DIRECTED PRN 01/07/17 01/16/17 History [Blistex Lip Ointment] Multivitamin [Men's Multi-Vitamin] 1 tab PO DAILY 01/07/17 01/16/17 History Saline Nasal [place] 1 spray EA NOSTRIL DAILY PRN 01/07/17 01/16/17 History Tetrahydrozoline 0.05% Ophth 1 drop BOTH EYES QID PRN 01/07/17 01/16/17 History [Visine Eye Drops] Allergies Allergy/AdvReac Type Severity Reaction Status Date / Time No Known Allergies Allergy Verified 01/07/17 15:47 Physical Exam Vitals: Vital Signs Temp Pulse Pulse Pulse Resp BP BP 01/17/17 10:00 79 22 126/57 01/17/17 08:00 98.2 F 83 79 79 35 H 143/78 126/57 01/17/17 06:00 72 15 109/77 01/17/17 04:00 98.6 F 71 17 93/65 01/17/17 02:00 72 17 98/67 01/17/17 00:30 88 01/16/17 23:33 95 16 149/85 Pulse Ox 01/17/17 10:00 92 L 01/17/17 08:00 92 L 01/17/17 06:00 96 01/17/17 04:00 98 01/17/17 02:00 100 01/17/17 00:30 01/16/17 23:33 98 Intake and Output 01/16/17 01/17/17 01/17/17 22:59 06:59 14:59 Intake Total 100 239.74 Output Total 850 260 Balance -750 -20.26 Intake: IV 100 80 0.9 100 80 Intake, IV Titration 159.74 Amount Heparin Sodium,Porcine/ 159.74 D5w Pmx 25,000 unit In Dextrose/Water 1 500ml. bag @ 12 UNITS/KG/HR 19. 59 mls/hr IV .Q24H [facility] Rx #:[id number] Output: Urine 850 260 Other: Voiding Method Urinal # Voids 3 1 Weight 84.36 kg GENERAL EXAM: Alert, fairly comfortable in no apparent distress. HEAD: Normocephalic. EYES: Normal reaction of pupils, equal size. NOSE: Clear with pink turbinates. THROAT: No erythema or exudates. NECK: No masses, no JVD. CHEST: No chest wall deformity. Dressing dry and intact. LUNGS: Equal air entry with echoes in the posterior bases. CVS: S1 and S2 normal with no audible murmurs, regular rhythm. ABDOMEN: No hepatosplenomegaly, normal bowel sounds, no guarding or rigidity. SPINE: No scoliosis or deformity SKIN: No rashes CENTRAL NERVOUS SYSTEM: No focal deficits, tone is normal in all 4 extremities. Extremities: There is no significant peripheral edema. No clubbing, no cyanosis. Peripheral pulses are intact. Results - Laboratory Findings CBC and BMP: 01/17/17 05:16 01/17/17 05:16 PT/INR, D-dimer PT 10.0 sec (9.0-12.0) 01/16/17 20:53 INR 1.0 (<1.1) 01/16/17 20:53 D-Dimer 4.30 mg/L FEU (<0.60) H 01/16/17 20:53 Abnormal lab findings: Abnormal Labs 01/17/17 01/17/17 01/17/17 00:30 05:16 05:16 RBC 3.60 L Hgb 11.8 L Hct 36.2 L MCV 100.6 H Glucose 103 H POC Glucose (mg/dL) 140 H AST 184 H ALT 304 H Alkaline Phosphatase 407 H Total Creatine Kinase Total Protein 5.8 L Albumin 3.2 L Lipase 01/17/17 01/17/17 05:16 09:15 RBC Hgb Hct MCV Glucose POC Glucose (mg/dL) AST ALT Alkaline Phosphatase Total Creatine Kinase 53 L Total Protein Albumin Lipase 310 H - Diagnostic Findings Chest x-ray: image reviewed CT scan - chest: image reviewed Assessment and Plan Plan: Impression: #1 Atypical chest pain in a patient with recent coronary artery bypass grafting on 01/08/2017 with a HU to the LAD. No ST or T-wave abnormalities, normal troponins 3. CTA negative for pulmonary embolism. #2 Dyspnea secondary to bilateral pleural effusions/atelectasis secondary to recent bypass surgery. #3 Acute hypoxic respiratory failure secondary to above. #4 Elevated liver function testing including alk phos. Statin discontinued. Ultrasound is pending. Amylase within normal limits lipase 310. #5 Hyperlipidemia, statin discontinued secondary to elevated liver enzymes. #6 Hypertension. Plan: The patient was seen and evaluated by Dr. Medina. His chest x-ray, CAT scan and labs were reviewed. We'll continue with his current medications including bronchodilators, 0.9 normal saline at 40 mls per hour. He is on empiric antibiotics in the form of Levaquin. He is also being diuresed with Lasix 20 mg IV twice a day. His heparin has been discontinued. We'll await results of the abdominal ultrasound. We'll continue to follow and make further recommendations based on his clinical status.
--- NOTE | 2017-01-17 13:27 | HP ---
DATE OF ADMISSION: 01/16/2017 DATE OF SERVICE: 01/17/2017 CHIEF COMPLAINT: Chest pain and shortness of breath. This is a 61-year-old white male who had a coronary artery bypass graft about a week ago and apparently the patient was doing well and he went to [place] to have dinner and he started having severe left-sided chest pain associated with shortness of breath and pain was radiating to the back. EMS gave him some nitroglycerin which gave some relief to the chest pain. The patient was brought to the emergency room. He also had severe shortness of breath, but he denies any diaphoresis or any headache, fever or chills. In the emergency room, his CBC was unremarkable. There was some leukocytosis with WBC 13.6 and hemoglobin 12.1. His platelet count was 528. Sodium 139, potassium 4.0, BUN 13, creatinine 0.99. Cardiac enzymes were within normal limits with troponin 0.015. CK and CK-MB within normal limits. His BNP was 897. EKG showed sinus rhythm with nonspecific T wave changes. CT angiogram was negative for pulmonary embolism, but it did show some pleural effusion and bilateral basilar infiltrate and probable congestive heart failure. The patient was admitted to the hospital for further evaluation and treatment. His past medical history reveals that he has a history of hypertensive cardiovascular disease, hyperlipidemia. His current medications include: 1. Aspirin 325 mg p.o. daily. 2. Lipitor 40 mg daily. 3. Plavix 75 mg p.o. daily. 4. [place] 5/325 one q.6 hours p.r.n. 5. Lisinopril 5 mg daily at bedtime. 6. Metoprolol 50 mg p.o. b.i.d. 7. Also, he is taking laxatives. He has no known drug allergies. He does not smoke and drinks alcohol occasionally. FAMILY HISTORY: Positive for coronary artery disease. Sibling has history of coronary artery bypass graft. REVIEW OF SYSTEMS: The patient denies any headache. Appetite has been good. Bowels regular. He has chest pain as mentioned before. He has no abdominal pain. He has no polyuria or dysuria. He has no neurological symptoms. Physical examination reveals a 61-year-old white male, well nourished and well developed. He is alert and oriented. He is still having some chest pain on and off. There is no jaundice. There is no generalized lymphadenopathy. There are no petechiae or bruises. Pulse 94 per minute and regular. His blood pressure 136/73, respirations 16 per minute, O2 saturation 94%. EXAMINATION OF THE ENT: Negative. Neck is supple. There is no jugular venous distention. There is no goiter. There is no carotid bruit. Chest shows status post recent coronary artery bypass graft. Heart is in sinus rhythm. Lungs reveal diminished breath sound over both bases with a few scattered rales heard. ABDOMEN: Soft and nontender. There is no mass palpable. Examination of the lower extremities reveal no pitting edema. Neurologic examination does not reveal any localizing signs. IMPRESSION: 1. Unstable angina. 2. Coronary artery disease, status post coronary artery bypass graft about a week ago. 3. Hypertensive cardiovascular disease. 4. Hyperlipidemia. 5. Bilateral basilar pneumonia. 6. Bilateral pleural effusion. 7. Congestive heart failure. PLAN: The patient will be admitted to the hospital. His heart will be monitored with telemetry. We will consult the cardiac surgeon and also [facility]. Will also get consultation from rags laborer and Dr. Medina has already seen the patient. Overall prognosis is guarded. The diagnoses, prognosis, and therapeutic plans were discussed in detail with the patient and also with the patient's . Attending physician, Dr. Sahni.
--- NOTE | 2017-01-17 13:36 | CONS ---
DATE OF CONSULTATION: Mr. Russo is a 61-year-old gentleman who is seen for the cardiac evaluation. This patient recently was discharged after having coronary artery bypass surgery with HU graft to the LAD. Patient went to [place] to have dinner and while he was just finishing dinner he had a severe left-sided chest pain along the ( ) costal margin. The pain was sharp and possibly radiating to the back. He was short of breath. He did not have any nausea or vomiting or diaphoresis. Patient took a nitroglycerin with some relief of the pain. Because of the of shortness of breath, patient came to the emergency room and subsequently admitted. This patient recently had an episode of chest pain. Subsequent stress test shows positive for ischemia and underwent cardiac catheterization with HU graft to the LAD. His postoperative course was uneventful. Patient's home medications include Zyrtec, Xanax, Blistex, nasal spray, Lipitor 40 mg daily, aspirin once a day, [place] once a day, metoprolol 50 mg b.i.d. and lisinopril 5 mg daily. Past medical history includes history of hypertension, hyperlipidemia, recent coronary artery bypass surgery and the right knee surgery. Physical examination at present reveals a 61-year-old gentleman who does not appear to be in any acute distress. In the emergency room, patient's blood pressure was 136/73 mmHg., oxygen saturation was 93%, respiratory rate was 20. Patient is feeling comfortable now without any chest discomfort. Blood pressure is 126/57 mmHg, oxygen saturation is 92%. Head/ENT examination is negative. Neck is supple. There is no increase in jugular venous pressure. Both the carotid pulses are felt. There is no bruit. Chest is symmetrical. HEART: The PMI is not felt. First and second heart sounds are normal. Lung examination reveals a few basal crackles. ABDOMEN: Soft. There is no definite tenderness noted. EXTREMITIES: Peripheral pulsations are 2+. Patient has a chest x-ray which shows some bibasilar infiltrate. CT scan of the chest was done which did not show any evidence of pulmonary embolism. There was bilateral basilar atelectasis noted. No significant failure was noted by the chest x-ray. Patient's troponins are normal. EKG shows normal sinus rhythm without any acute ischemic changes. Patient's D-dimer was 4.30. Initial AST was 230, ALT is 300 and alkaline phosphatase is 441. Repeat enzymes are about the same. Patient's bilirubin is 0.5. BNP level is 897. FINAL IMPRESSION: 1. This patient is admitted with sharp, left-sided chest pain which appears to be atypical chest pain could be secondary to muscle spasm. EKGs and cardiac enzymes are normal. 2. Patient is status post recent coronary artery bypass surgery. 3. Patient has a significantly elevated liver enzymes, which are difficult to explain. I really doubt that it could be due to the Lipitor; however, Lipitor is discontinued. RECOMMENDATIONS: We will recommend to suggest ultrasound of the gallbladder, liver and pancreas and GI evaluation and follow liver enzymes. We will also check the venous duplex study in view of the elevated D-dimer test.
--- NOTE | 2017-01-17 13:36 | US ---
EXAMINATION TYPE: US venous doppler duplex LE BI DATE OF EXAM: 01/17/2017 1:29 PM COMPARISON: NONE CLINICAL HISTORY: elevated d-dimer. Elevated D-Dimer, SOB, Chest pain SIDE PERFORMED: Bilateral VESSELS IMAGED: External Iliac Vein (EIV) Common Femoral Vein Deep Femoral Vein Greater Saphenous Vein * Femoral Vein Popliteal Vein Small Saphenous Vein * Proximal Calf Veins (* superficial vessels) TECHNOLOGIST IMPRESSION: wnl Right Leg: Negative for DVT Left Leg: Negative for DVT IMPRESSION: Normal exam. No evidence of deep venous thrombosis in both legs.
--- NOTE | 2017-01-17 13:39 | US ---
EXAMINATION TYPE: US abdomen limited DATE OF EXAM: 01/17/2017 1:28 PM COMPARISON: NONE CLINICAL HISTORY: elevated liver enzymes. Elevated LFTs, chest and back pain EXAM MEASUREMENTS: Liver Length: 15.2 cm Gallbladder Wall: 0.3 cm CBD: 0.3 cm Right Kidney: 11.4 x 5.5 x 5.0 cm TECHNOLOGIST IMPRESSION: Difficult exam, pt post CABG with surgical incision extending to epigastr ic area Pancreas: Obscured by bowel gas Liver: Heterogeneous, visualized mostly intercostally Gallbladder: wnl, ICU pt, unable to roll to LLD position Evidence for sonographic Hayes's sign: No CBD: wnl Right Kidney: wnl, lower pole obscured by overlying bowel gas Incidental finding right pleural effusion IMPRESSION: No gallstones or dilated ducts. Small right pleural effusion is evident.
[2017-01-17] MEDS: CLOPIDOGREL 75 MG TAB PO SCH (14:38)
[2017-01-17] MEDS: METOPROLOL TARTRATE 12.5 MG TAB PO SCH (20:18)
[2017-01-17] MEDS ORDERED: LISINOPRIL 5 MG TAB PO SCH (21:00)
[2017-01-17] MEDS ORDERED: LEVOFLOXACIN 750MG-D5W PMX 750 MG in DEXTROSE/WATER 1 150ML.BAG IVPB SCH (21:00)
[2017-01-17] MEDS ORDERED: SENNOSIDES-DOCUSATE SODIUM 1 EACH TAB PO SCH (21:00)
[2017-01-18] MEDS: NITROGLYCERIN OINT 1 INCH/GM PACKET TOPICAL SCH ×3 (00:37→13:21)
[2017-01-18] MEDS: CLOPIDOGREL 75 MG TAB PO SCH (08:26)
[2017-01-18] MEDS: ASPIRIN 325 MG TAB PO SCH (08:26)
[2017-01-18] MEDS: METOPROLOL TARTRATE 12.5 MG TAB PO SCH (08:26)
[2017-01-18] MEDS ORDERED: LORATADINE 10 MG TAB PO SCH (09:00)
[2017-01-18] MEDS ORDERED: NON-FORMULARY DRUG (Multivitamin [Men's Multi-Vitamin] 1 TAB) PO SCH (09:00)
[2017-01-18] MEDS ORDERED: LEVOFLOXACIN 500 MG TAB PO SCH (09:00)
[2017-01-18 10:48] VITALS: BP 113/68; PULSE 84; RESP 18; TEMP 97.9
--- NOTE | 2017-01-18 11:14 | P.PN ---
Subjective Principal diagnosis: Progress note dated 01/18/2017 The patient's doing well. No major issues or problems. No more shortness of breath or chest pain. Vital signs are stable. Chest x-ray was reviewed. The patient could be discharged to home today from the ICU if the surgeon agrees. The patient does have an appointment to see me in the office. Objective - Vital Signs Vital signs: Vital Signs Temp 97.9 F 01/18/17 08:16 Pulse 84 01/18/17 08:16 Resp 18 01/18/17 08:16 BP 113/68 01/18/17 08:16 Pulse Ox 94 L 01/18/17 05:22 Intake & Output 01/17/17 01/18/17 01/18/17 17:59 06:59 18:59 Intake Total 500 Output Total Balance 500 Weight Intake: IV 0.9 Intake, IV Titration Amount Heparin Sodium,Porcine/ D5w Pmx 25,000 unit In Dextrose/Water 1 500ml. bag @ 12 UNITS/KG/HR 19. 59 mls/hr IV .Q24H [facility] Rx #:[id number] Oral 500 Output: Urine Other: Voiding Method Urinal # Voids 1 - Exam No acute distress, oriented 3 HEENT examination is unremarkable. Mixed membranes are moist. No oral lesions. Neck supple. Full range of motion. No adenopathy. Cardiovascular examination reveals regular rhythm rate. S1-S2 normal. No murmur. Lungs are clear breath sounds equal. No wheezes rhonchi or crackles. Abdomen soft bowel sounds are heard. Extremities are intact. - Labs CBC & Chem 7: 01/17/17 05:16 01/17/17 05:16 Labs: Abnormal Lab Results - Last 24 Hours (Table) 01/17/17 Range/Units 05:16 Lipase 310 H (23-300) U/L Assessment and Plan (1) Pleural effusion Status: Acute (2) Pneumonia Status: Acute (3) Coronary artery disease Status: Acute (4) Hyperlipidemia Status: Acute (5) Occlusion of left internal carotid artery Status: Acute (6) Unstable angina Status: Acute Plan: Plan This dictation is the discharge summary if cardiothoracic surgeon agrees to discharge the patient today. The patient will follow with me and also follow- up with Dr. Sahni his primary doctor. I think he should get a few more days of Levaquin orally. In addition, he'll see me this week in the office. We'll repeat a chest x-ray. She have a low-fat low-cholesterol diet. Activity as tolerated. He'll need to follow-up with Dr. Sahni myself and the thoracic surgeon. We'll hold off giving him a statin for right now because of his elevated liver enzymes. No additional recommendations are made. We'll continue to follow closely. Time with Patient: Less than 30
--- NOTE | 2017-01-18 12:17 | P.PN ---
Progress Note - Text CV Surgery Nursing POD: #10, status post median sternotomy via a limited skin incision and off- pump coronary artery bypass grafting using the left internal mammary artery to the left anterior descending coronary artery and a intraoperative transesophageal echocardiogram. Surgery was completed by Dr. Felix. Patient awake and alert, no distress noted, no specific complaints. Denies further episodes of chest pain today. Vital Signs: Afebrile Vital Signs - 24 hr 01/17/17 01/17/17 01/17/17 12:00 14:00 16:00 Temperature 98.0 F Pulse Rate 71 77 72 Pulse Rate [ 79 76 Bilateral Radial] Pulse Rate [ 79 76 Materials Inspector ] Respiratory 20 22 13 Rate Blood Pressure 89/52 93/56 86/51 Blood Pressure 109/69 [Right Arm Supine] O2 Sat by Pulse 96 96 95 Oximetry 01/17/17 01/17/17 01/17/17 18:00 20:00 20:03 Temperature 98.4 F Pulse Rate 82 Pulse Rate [ 76 Bilateral Radial] Pulse Rate [ 98 Materials Inspector ] Respiratory 13 19 Rate Blood Pressure 109/69 Blood Pressure 129/79 [Right Arm Supine] O2 Sat by Pulse 92 L 95 96 Oximetry 01/17/17 01/17/17 01/18/17 22:00 23:13 00:00 Temperature 98.4 F Pulse Rate Pulse Rate [ 76 Bilateral Radial] Pulse Rate [ 92 Materials Inspector ] Respiratory 16 Rate Blood Pressure 129/79 Blood Pressure 141/79 [Right Arm Supine] O2 Sat by Pulse 94 L 94 L Oximetry 01/18/17 01/18/17 01/18/17 00:32 03:00 04:00 Temperature 98.6 F Pulse Rate Pulse Rate [ 76 Bilateral Radial] Pulse Rate [ 90 Materials Inspector ] Respiratory 15 Rate Blood Pressure 141/74 Blood Pressure 139/84 [Right Arm Supine] O2 Sat by Pulse 93 L 94 L Oximetry 01/18/17 01/18/17 01/18/17 05:22 06:00 08:16 Temperature 97.9 F Pulse Rate 84 Pulse Rate [ Bilateral Radial] Pulse Rate [ Materials Inspector ] Respiratory 18 Rate Blood Pressure 139/85 139/85 113/68 Blood Pressure [Right Arm Supine] O2 Sat by Pulse 94 L Oximetry Labs: No new lab results. Lungs: Essentially clear throughout, diminished bilateral bases left greater than right. Respirations are unlabored. O2 sat: 94% on room air. Heart: S1S2, regular rhythm and rate, negative for S3, gallop or murmur. Bedside telemetry showing normal sinus rhythm heart rate 70. Sternum stable, chest incision clean, well approximated and dry. Heart hugger in place, proper use of his heart hugger demonstrated by the patient. Abdomen: Soft, Positive bowel sounds present in all 4 quadrants, positive bowel movement this a.m. U/O: Adequate. Plan: 1. Per cardiothoracic standpoint patient may be discharged home today.
[2017-01-18] MEDS: FUROSEMIDE 10 MG/ML 2 ML VIAL IV SCH (13:20)
--- NOTE | 2017-01-18 13:25 | P.DS ---
Providers Date of admission: 01/16/17 23:13 Expected date of discharge: 01/18/17 (The patient was admitted on January 16 and will be discharged on January 18. He'll follow-up with Dr. Sahni. The patient also follow myself this week and also is very in 2 weeks. He needs no special medications for discharge.) Attending physician: London Borges Consults: 01/16/17 23:30 Consult Physician Urgent Consulting Provider: Cesario Medina Consult Reason/Comments: Pleural effusions, pulmonary edema, pneumonia Do you want consulting provider notified?: Yes 01/17/17 12:37 Consult Physician Stat Consulting Provider: Aminta Villalobos Consult Reason/Comments: elevated liver enzumes Do you want consulting provider notified?: Yes Primary care physician: Sumit Sahni - Discharge Diagnosis(es) (1) Pleural effusion The patient was admitted from the ER to the ICU. He came with chest pain and shortness of breath. EKG was normal. CT angiogram was negative for PE. He also had cardiac enzymes which were all negative. He spent about a 2 days here in the ICU will be discharged home on January 18 from the ICU to home. He'll follow-up with Dr. Sahni he should see me. He also see Dr. Felix in 10 days to 2 weeks. No new medications for discharge. He does not need the antibiotics that he was given here. He was also given a few doses of Lasix here which is not need at home. He is all his medications at home. Also, because of elevated liver function test, the patient well not be placed back on a statin. We'll repeat his lipid profile and liver function test down the road and see if he needs a statin back added back. Other than that everything seemed to be relatively stable. He is doing well. Walking up and down the ICU. Not requiring any supplemental oxygen. He'll be discharged on a low-fat low cholesterol diet or cardiac diet. His activity will be as tolerated. He should not drive. He should resume all his home medications except a statin drug. The patient will have follow-up with his primary Dr. Sahni myself and Dr. Felix. Current Visit: Yes Status: Acute (2) Pneumonia Current Visit: Yes Status: Acute (3) Coronary artery disease Current Visit: No Status: Acute (4) Hyperlipidemia Current Visit: No Status: Acute (5) Occlusion of left internal carotid artery Current Visit: No Status: Acute (6) Unstable angina Current Visit: No Status: Acute Plan - Discharge Summary Discharge Medication List Cetirizine HCl [Zyrtec] 10 mg PO DAILY 05/15/16 [History] ALPRAZolam [Xanax] 0.25 mg PO TID PRN 01/06/17 [History] Nitroglycerin Sl Tabs [Nitrostat] 0.4 mg SUBLINGUAL Q5M PRN 01/06/17 [History] Azdnivz-Urapqxi-Eqipdn-Dime [Blistex Lip Ointment] 1 applic TOPICAL DIRECTED PRN 01/07/17 [History] Multivitamin [Men's Multi-Vitamin] 1 tab PO DAILY 01/07/17 [History] Saline Nasal [place] 1 spray EA NOSTRIL DAILY PRN 01/07/17 [History] Tetrahydrozoline 0.05% Ophth [Visine Eye Drops] 1 drop BOTH EYES QID PRN [History] Aspirin 325 mg PO DAILY #30 tab 01/12/17 [Rx] Atorvastatin [Lipitor] 40 mg PO HS #30 tab 01/12/17 [Rx] Clopidogrel [Plavix] 75 mg PO DAILY #30 tab 01/12/17 [Rx] HYDROcodone/APAP 5-325MG [[place] 5-325] 1 - 2 tab PO Q6HR PRN #30 tab 01/12/17 [ Rx] Lisinopril [Zestril] 5 mg PO HS #30 tab 01/12/17 [Rx] Metoprolol Tartrate [Lopressor] 50 mg PO BID #60 tab 01/12/17 [Rx] Sennosides-Docusate Sodium [Senokot-S] 2 each PO HS tab 01/12/17 [Rx] Aspirin 325 mg PO DAILY 01/17/17 [History] Atenolol [Tenormin] 25 mg PO DAILY 01/17/17 [History] Isosorbide Mononitrate ER [Imdur] 30 mg PO DAILY 01/17/17 [History] LORazepam [Ativan] 0.5 mg PO BID 01/17/17 [History] Follow up Appointment(s)/Referral(s): Sumit Sahni MD [Primary Care Provider] - 1-2 days Discharge Disposition: HOME SELF-CARE
--- NOTE | 2017-01-18 18:57 | PN ---
DATE OF SERVICE: 01/18/2017 This is a 61-year-old white male who about 2 weeks ago patient had a coronary artery bypass graft and patient was discharged home about a week ago and patient was doing well and apparently she went to her friends in [place] and was having dinner there. While in the restaurant, he started having severe left-sided chest pain and the pain was radiating to the back and he was brought to the ER by EMS and from there he was admitted to the ICU. Apparently, he was found to have bilateral basilar infiltrates in the lung and also had some pleural effusion and he was seen by [facility] and also Dr. Medina and the thoracic surgeon in consultation they were following the patient. He was started on IV antibiotics and given diuretics apparently today patient seems to be doing a lot better and his shortness of breath has improved and Dr. Medina feels that he could be discharged home today and accordingly, he may be discharged home today if it is okay with the cardiac surgeon. Patient will be followed by the district customs director and photographic printer and the cardiac surgeon and also by Dr. Sahni when the patient is discharged.
== END 2017-01-18 15:00 | disposition home or self-care (01) | DRG 194 ==
LOC: SUPCPDRO 20:42 → EC 20:42 → 6ICU 23:13
PROVIDERS: ADMIT Internal Medicine; ATTEND Internal Medicine
DX: J18.9 Pneumonia, unspecified organism (principal); I25.110 Atherosclerotic heart disease of native coronary artery with unstable angina pectoris; I11.0 Hypertensive heart disease with heart failure; I50.9 Heart failure, unspecified; T46.6X5A Adverse effect of antihyperlipidemic and antiarteriosclerotic drugs, initial encounter; I49.3 Ventricular premature depolarization; R74.8 Abnormal levels of other serum enzymes; I65.22 Occlusion and stenosis of left carotid artery; E78.5 Hyperlipidemia, unspecified; F41.9 Anxiety disorder, unspecified; D72.829 Elevated white blood cell count, unspecified; R51 Headache; Z95.1 Presence of aortocoronary bypass graft; Z82.49 Family history of ischemic heart disease and other diseases of the circulatory system; Z79.899 Other long term (current) drug therapy; Z79.82 Long term (current) use of aspirin; Z79.02 Long term (current) use of antithrombotics/antiplatelets; Z79.891 Long term (current) use of opiate analgesic; Z98.890 Other specified postprocedural states; Z80.9 Family history of malignant neoplasm, unspecified; Z82.3 Family history of stroke; W19.XXXA Unspecified fall, initial encounter; Y92.002 Bathroom of unspecified non-institutional (private) residence as the place of occurrence of the external cause
CPT/HCPCS: 36415; 71020; 71275; 76705; 80053; 80061; 82150; 82550; 82553; 83690; 83735; 83880; 84100; 84484; 85025; 85379; 85610; 85730; 93005; 93970; 96374; 96375; 99291

== ENCOUNTER 2017-05-27 15:41 | Emergency (ER) | payer BC ==
[2017-05-27 16:25] VITALS: BP 112/75; PULSE 77; RESP 16; TEMP 97.3
--- NOTE | 2017-05-27 16:57 | ED ---
Wound/Laceration HPI - General Chief Complaint: Wound/Laceration Stated Complaint: R leg laceration Time Seen by Provider: 05/27/17 16:38 Source: patient, RN notes reviewed Mode of arrival: ambulatory Limitations: no limitations - History of Present Illness Initial Comments: patient is 62-year-old male presents to the emergency room for evaluation of right wilson laceration. Patient states that he tripped and ran into a ladder. Patient states that he is on Plavix. Patient states that the area did subside bleeding. Patient states that he noticed swelling under the laceration area that has subsided with ice. Patient states last tetanus vaccine was in January. Patient denies any significant pain in his wilson. - Related Data Home Medications Medication Instructions Recorded Confirmed Cetirizine HCl [Zyrtec] 10 mg PO DAILY 05/15/16 01/17/17 ALPRAZolam [Xanax] 0.25 mg PO TID PRN 01/06/17 01/17/17 Nitroglycerin Sl Tabs [Nitrostat] 0.4 mg SUBLINGUAL Q5M PRN 01/06/17 01/17/17 Multivitamin [Men's Multi-Vitamin] 1 tab PO DAILY 01/07/17 01/17/17 Saline Nasal [place] 1 spray EA NOSTRIL DAILY PRN 01/07/17 01/17/17 Tetrahydrozoline 0.05% Ophth 1 drop BOTH EYES QID PRN 01/07/17 01/17/17 [Visine Eye Drops] Previous Rx's Medication Instructions Recorded Aspirin 325 mg PO DAILY #30 tab 01/12/17 Clopidogrel [Plavix] 75 mg PO DAILY #30 tab 01/12/17 HYDROcodone/APAP 5-325MG [[place] 1 - 2 tab PO Q6HR PRN #30 tab 01/12/17 5-325] Lisinopril [Zestril] 5 mg PO HS #30 tab 01/12/17 Metoprolol Tartrate [Lopressor] 50 mg PO BID #60 tab 01/12/17 Sennosides-Docusate Sodium 2 each PO HS tab 01/12/17 [Senokot-S] Allergies Allergy/AdvReac Type Severity Reaction Status Date / Time atorvastatin [From Lipitor] AdvReac Unknown Verified 05/27/17 16:25 Review of Systems ROS Statement: Those systems with pertinent positive or pertinent negative responses have been documented in the HPI. ROS Other: All systems not noted in ROS Statement are negative. Past Medical History Past Medical History: Chest Pain / Angina, Hyperlipidemia, Hypertension Additional Past Medical History / Comment(s): chest pressure, Was at [facility] ER & overnight Dec 2016 nausea and lightheadedness-B/p 255/165,abn stress test, coronary artery bypass grafting with a HU to the LAD on 01/08/17 History of Any Multi-Drug Resistant Organisms: None Reported Past Surgical History: Coronary Bypass/CABG, Orthopedic Surgery, Prostate Surgery Additional Past Surgical History / Comment(s): right knee, prostate biopsy Past Anesthesia/Blood Transfusion Reactions: No Reported Reaction Additional Past Anesthesia/Blood Transfusion Reaction / Comment(s): no hx blood transfusion Past Psychological History: No Psychological Hx Reported Smoking Status: Never smoker Past Alcohol Use History: Occasional Past Drug Use History: None Reported - Past Family History Mother Family Medical History: Dementia Additional Family Medical History / Comment(s): at age 95 Father Family Medical History: Cancer Additional Family Medical History / Comment(s): at age 59 Brother(s) Family Medical History: Coronary Artery Disease (CAD), CVA/TIA Additional Family Medical History / Comment(s): Brothers x2 CABG Sister(s) Family Medical History: CVA/TIA General Exam - General Exam Comments Initial Comments: sitting in exam room, no acute distress. Limitations: no limitations General appearance: alert, in no apparent distress Head exam: Present: atraumatic, normocephalic, normal inspection Eye exam: Present: normal appearance ENT exam: Present: normal exam Neck exam: Present: normal inspection Respiratory exam: Absent: respiratory distress Right Lower Leg exam: Present: full ROM, laceration (5 inch superficial vertical abrasion/skin tear on enterior wilson with underlying hematoma). Absent: normal inspection Ankle exam: Present: normal inspection, full ROM. Absent: tenderness Foot/Toe exam: Present: normal inspection, full ROM. Absent: tenderness Neurovascular tendon exam: Present: no vascular compromise. Absent: pulse deficit (2+ dorsal pedal and posterior tibial pulses), abnormal cap refill ( capillary refill less than 2 seconds) Back exam: Present: normal inspection Neurological exam: Present: alert, oriented X3, CN II-XII intact, normal gait Psychiatric exam: Present: normal affect, normal mood Skin exam: Present: warm, dry, normal color. Absent: rash Course Vital Signs 05/27/17 16:19 Temperature 97.3 F L Pulse Rate 77 Respiratory 16 Rate Blood Pressure 112/75 O2 Sat by Pulse 99 Oximetry Medical Decision Making - Medical Decision Making patient is a 62-year-old male presents to the emergency room for evaluation of right anterior wilson abrasion/skin tear. Skin tear was repaired with Dermabond. Abrasion was slightly bleeding and covered with Gelfoam. Patient was offered x-ray and declined. Return parameters discussed. Disposition Clinical Impression: Hematoma of right lower extremity, Skin tear Disposition: HOME SELF-CARE Condition: Fair Instructions: Skin Tear (ED), Hematoma (ED) Additional Instructions: Elevate and ice on and off for 10-15 minutes for the next 24-48 hours. Gelfoam will fall off in 24-48 hours. Dermabond with come off in 7-10 days. Please follow-up with primary care provider in 24-48 hours for reevaluation. If new symptoms develop or symptoms worsen, please return to the ER. Referrals: Sumit Sahni MD [Primary Care Provider] - 1-2 days Time of Disposition: 17:37
[2017-05-27] MEDS ORDERED: GELATIN SPONGE,ABSORB (SMALL) 1 EACH SPONGE TOPICAL STA (17:34)
[2017-05-27] MEDS ORDERED: TOPICAL SKIN ADHESIVE 1 EACH AMP TOPICAL ONE (17:34)
== END 2017-05-27 18:10 | disposition home or self-care (01) ==
LOC: EC 15:41
DX: S81.811A Laceration without foreign body, right lower leg, initial encounter (principal); Z79.02 Long term (current) use of antithrombotics/antiplatelets; Z79.899 Other long term (current) drug therapy; Z88.8 Allergy status to other drugs, medicaments and biological substances; W18.09XA Striking against other object with subsequent fall, initial encounter
CPT/HCPCS: 12005; 99282

== ENCOUNTER → 2020-01-09 | Outpatient (CLI) | payer BC, MEDICARE | END | disposition home or self-care (01) | LOC: LABWHC1 10:26 | PROVIDERS: ATTEND Urology | DX: R97.20 Elevated prostate specific antigen [PSA] (principal) | CPT/HCPCS: 36415; 84153 ==

== ENCOUNTER 2020-04-04 19:49 | Emergency (ER) | payer BC, MEDICARE ==
[2020-04-04 20:35] VITALS: TEMP 98
[2020-04-04] MEDS ORDERED: MORPHINE SULFATE 4 MG/ML SYRINGE IM STA (20:55)
[2020-04-04] MEDS ORDERED: KETOROLAC 30 MG/ML 1 ML VIAL IM STA (20:55)
--- NOTE | 2020-04-04 21:45 | XR ---
EXAMINATION TYPE: XR knee complete LT DATE OF EXAM: 04/04/2020 COMPARISON: NONE HISTORY: Knee pain TECHNIQUE: 3 views FINDINGS: There is a large knee joint effusion. I see no fracture nor dislocation. Joint spaces are n ormal. I see no bony destructive process. IMPRESSION: Knee joint effusion. No fracture seen.
[2020-04-04] MEDS ORDERED: RX INFO: IV CONTRAST WAS GIVEN 1 EACH MISC MISCELLANE PRN (23:10)
[2020-04-04] MEDS ORDERED: HYDROmorphone 1 MG/ML 1 ML SYRINGE IVP STA (23:13)
[2020-04-04] MEDS ORDERED: ONDANSETRON 4 MG/2 ML VIAL IVP STA (23:13)
--- NOTE | 2020-04-05 00:15 | ED ---
Lower Extremity Injury HPI - General Chief Complaint: Extremity Injury, Lower Stated Complaint: Knee Injury Time Seen by Provider: 04/04/20 20:46 Source: patient Mode of arrival: ambulatory Limitations: no limitations - History of Present Illness Initial Comments: 64 year-old male patient presents to the emergency department today for evaluation of left knee pain and swelling. Patient states that he was working on a boat trailer lifting when he felt his left knee "pop out of place" and back in. Patient states he had significant pain and swelling to the area almost immediately. States that he had to finish the job he was doing so he attempted to lift the trailer again, states the knee again seemed to "pop out of place and back in". He states the pain was so bad he almost blacked out. He did sustain an abrasion to the left wilson. He denies any numbness or tingling to the foot. Injury occurred around 1600 this afternoon. He denies falling. Denies any other injuries.Patient denies any headache, neck pain, back pain, chest pain, shortness of breath, dizziness, weakness, abdominal pain, nausea, vomiting, or difficulties with bowel movements or urination. - Related Data Home Medications Medication Instructions Recorded Confirmed Cetirizine HCl [Zyrtec] 10 mg PO DAILY 05/15/16 01/17/17 ALPRAZolam [Xanax] 0.25 mg PO TID PRN 01/06/17 01/17/17 Nitroglycerin Sl Tabs [Nitrostat] 0.4 mg SUBLINGUAL Q5M PRN 01/06/17 01/17/17 Multivitamin [Men's Multi-Vitamin] 1 tab PO DAILY 01/07/17 01/17/17 Saline Nasal [place] 1 spray EA NOSTRIL DAILY PRN 01/07/17 01/17/17 Tetrahydrozoline 0.05% Ophth 1 drop BOTH EYES QID PRN 01/07/17 01/17/17 [Visine Eye Drops] Previous Rx's Medication Instructions Recorded Aspirin 325 mg PO DAILY #30 tab 01/12/17 Clopidogrel [Plavix] 75 mg PO DAILY #30 tab 01/12/17 HYDROcodone/APAP 5-325MG [[place] 1 - 2 tab PO Q6HR PRN #30 tab 01/12/17 5-325] Lisinopril [Zestril] 5 mg PO HS #30 tab 01/12/17 Metoprolol Tartrate [Lopressor] 50 mg PO BID #60 tab 01/12/17 Sennosides-Docusate Sodium 2 each PO HS tab 01/12/17 [Senokot-S] Hydrocodone/Acetaminophen [[place] 1 tab PO Q6HR PRN #12 tab 04/05/20 5-325] Allergies Allergy/AdvReac Type Severity Reaction Status Date / Time shellfish derived [Shellfish] Allergy Anaphylaxis Verified 04/04/20 20:35 atorvastatin [From Lipitor] AdvReac Unknown Verified 04/04/20 20:35 Review of Systems ROS Statement: Those systems with pertinent positive or pertinent negative responses have been documented in the HPI. ROS Other: All systems not noted in ROS Statement are negative. Past Medical History Past Medical History: Chest Pain / Angina, Hyperlipidemia, Hypertension Additional Past Medical History / Comment(s): chest pressure, Was at [facility] ER & overnight Dec 2016 nausea and lightheadedness-B/p 255/165,abn stress test, coronary artery bypass grafting with a HU to the LAD on 01/08/17 History of Any Multi-Drug Resistant Organisms: None Reported Past Surgical History: Coronary Bypass/CABG, Orthopedic Surgery, Prostate Surgery Additional Past Surgical History / Comment(s): right knee, prostate biopsy Past Anesthesia/Blood Transfusion Reactions: No Reported Reaction Additional Past Anesthesia/Blood Transfusion Reaction / Comment(s): no hx blood transfusion Past Psychological History: No Psychological Hx Reported Smoking Status: Never smoker Past Alcohol Use History: Occasional Past Drug Use History: None Reported - Past Family History Mother Family Medical History: Dementia Additional Family Medical History / Comment(s): at age 95 Father Family Medical History: Cancer Additional Family Medical History / Comment(s): at age 59 Brother(s) Family Medical History: Coronary Artery Disease (CAD), CVA/TIA Additional Family Medical History / Comment(s): Brothers x2 CABG Sister(s) Family Medical History: CVA/TIA General Exam Limitations: no limitations General appearance: alert, in no apparent distress, other (This is a well- developed, well-nourished adult male patient in no acute distress. Vital signs upon presentation are temperature 98.0F, pulse 73, respirations 18, blood pressure 151/98, pulse ox 98% on room air.) Eye exam: Present: normal appearance, PERRL, EOMI. Absent: scleral icterus, conjunctival injection, periorbital swelling ENT exam: Present: normal exam, normal oropharynx, mucous membranes moist Respiratory exam: Present: normal lung sounds bilaterally. Absent: respiratory distress, wheezes, rales, rhonchi, stridor Cardiovascular Exam: Present: regular rate, normal rhythm, normal heart sounds. Absent: systolic murmur, diastolic murmur, rubs, gallop, clicks GI/Abdominal exam: Present: soft, normal bowel sounds. Absent: distended, tenderness, guarding, rebound, rigid Extremities exam: Present: tenderness (Over the left knee anterior and posterior.), normal capillary refill, other (Soft tissue swelling noted surrounding the left knee. There is generalized tenderness, extreme pain with movement. Skin is pink, warm, and dry. Cap refills less than 3 seconds. Pedal and posttibial pulses are 2+ and equal bilaterally.). Absent: normal inspection, full ROM (Decreased range of motion to the left knee due to swelling and increased pain with movement. ), pedal edema, joint swelling, calf tenderness Neurological exam: Present: alert, oriented X3, CN II-XII intact Psychiatric exam: Present: normal affect, normal mood Skin exam: Present: warm, dry, intact, normal color. Absent: rash Course Vital Signs 04/04/20 04/05/20 20:31 02:00 Temperature 98 F Pulse Rate 73 15 L Respiratory 18 58 H Rate Blood Pressure 151/98 127/80 O2 Sat by Pulse 98 99 Oximetry Medical Decision Making - Medical Decision Making 64-year-old male patient presents to the emergency department today for e valuation after sustaining a knee injury. Physical examination did reveal surrounding soft tissue swelling and tenderness. Neurovascular status is intact. X-ray did reveal large knee joint effusion. Patient's history is concerning for possible dislocation relocation injury so we did perform CT a ngiography of the left leg. Labs were obtained and did reveal mildly decreased renal function. CT was negative for any acute arterial injury but did redemonstrate the effusion which is concerning for hemarthrosis. No evidence for osseous abnormalities. Patient was given a 500 mL fluid bolus after his CAT scan. He will be discharged follow-up with orthopedic specialty for further evaluation as soon as possible. He does have crutches at home is instructed to use these for ambulation. He will be given prescription for pain medication. Educated regarding rest, ice, and elevation. Return parameters were discussed in detail. He verbalizes understanding and agrees with this plan. - Lab Data Result diagrams: 04/04/20 23:29 Lab Results 04/04/20 Range/Units 23:29 Sodium 137 (137-145) mmol/L Potassium 4.0 (3.5-5.1) mmol/L Chloride 107 (98-107) mmol/L Carbon Dioxide 22 (22-30) mmol/L Anion Gap 8 mmol/L BUN 31 H (9-20) mg/dL Creatinine 1.13 (0.66-1.25) mg/dL Est GFR (CKD-EPI)AfAm 78 (>60 ml/min/1.73 sqM) Est GFR (CKD-EPI)NonAf 68 (>60 ml/min/1.73 sqM) Glucose 123 H (74-99) mg/dL Calcium 9.8 (8.4-10.2) mg/dL Total Bilirubin 0.4 (0.2-1.3) mg/dL AST 46 (17-59) U/L ALT 41 (4-49) U/L Alkaline Phosphatase 87 (38-126) U/L Total Protein 7.1 (6.3-8.2) g/dL Albumin 4.4 (3.5-5.0) g/dL - Radiology Data Radiology results: report reviewed, image reviewed 3 views of the left knee are obtained. Report reviewed in its entirety. Impression by Dr. Edwards shows knee joint effusion. No fracture seen. CT angiography of the left lower extremity was obtained. Report was reviewed in its entirety. Impression by Dr. Edwards shows negative CT angiogram of the left knee. Moderate knee joint effusion with mixed attenuation suggestive of hemarthrosis. Disposition Clinical Impression: Hemarthrosis, left knee, Left knee injury Disposition: HOME SELF-CARE Condition: Good Instructions (If sedation given, give patient instructions): Swollen Knee Joint (ED), Knee Pain (ED), Knee Immobilizer (ED) Additional Instructions: Use knee immobilizer for knee stability and support. Use crutches for ambulation. Follow up with the health promotion specialist for further evaluation as soon as possible Return to the emergency department for any new, worsening, or concerning symptoms. Prescriptions: Hydrocodone/Acetaminophen [[place] 5-325] 1 tab PO Q6HR PRN #12 tab PRN Reason: Pain Is patient prescribed a controlled substance at d/c from ED?: Yes When asked, does pt state using other controlled substances?: No If prescribed controlled substance>3 days was MAPS reviewed?: Prescribed <3 Days If opioid is for acute pain is fill amount 7 days or less?: Yes If Rx opioid, was Start Talking consent form obtained?: Yes Referrals: Sumit Sahni MD [Primary Care Provider] - 1-2 days Kishor Myles MD [STAFF PHYSICIAN] - 1-2 days Time of Disposition: 02:13
[2020-04-05 00:27] LABS: Albumin 4.4 g/dL (3.5-5.0); Calcium 9.8 mg/dL (8.4-10.2); Total Bilirubin 0.4 mg/dL (0.2-1.3); Total Protein 7.1 g/dL (6.3-8.2)
[2020-04-05] MEDS ORDERED: SODIUM CHLORIDE 0.9% 500 ML 500 ML IV ONE (00:28)
--- NOTE | 2020-04-05 01:42 | CT ---
EXAMINATION TYPE: CT angio lower extremity LT DATE OF EXAM: 04/05/2020 COMPARISON: None HISTORY: Left Knee pain, swelling CT DLP: 443.50 mGycm Automated exposure control for dose reduction was used. CONTRAST: Performed with IV Contrast, patient injected with 100 mL of Isovue 370. There are 3-D post processed images. Images were obtained without and with IV contrast from the mid f emur to the mid tibia. There is arterial flow in the femoral artery. There is arterial flow in the popliteal artery tibial a rtery and the tibial artery trifurcation. There is arterial flow in the anterior tibial and posterior tibial artery. There is arterial flow in the peroneal artery. I see no contrast extravasation. There is a moderate size knee joint effusion. Joint fluid has mixed attenuation suggestive of hemorrhage. There is no evidence of bony destructive process. Proximal tibia and fibula appear intact. Patella is intact. The knee joint spaces are fairly normal. Distal femur appears intact. I see no evidence of h emodynamic stenosis. There is no evidence of arterial dissection. There is no evidence of aneurysm. T here is no pathologic enhancement. IMPRESSION: Negative CT angiogram of the left knee. Moderate knee joint effusion with mixed attenuation suggestiv e of hemarthrosis.
[2020-04-05] MEDS ORDERED: ACET/COD 300 MG/30 MG STARTER PACK 6 TAB BTL PO STA (02:14)
[2020-04-05 02:18] VITALS: BP 127/80; PULSE 15; RESP 58
[2020-04-05] MEDS ORDERED: HYDROmorphone 0.5 MG/0.5 ML SYRINGE IVP STA (02:21)
== END 2020-04-05 02:40 | disposition home or self-care (01) ==
LOC: EC 19:49
DX: M25.062 Hemarthrosis, left knee (principal); S89.92XA Unspecified injury of left lower leg, initial encounter; M25.462 Effusion, left knee; I10 Essential (primary) hypertension; Z91.013 Allergy to seafood; Z88.8 Allergy status to other drugs, medicaments and biological substances; Z95.1 Presence of aortocoronary bypass graft; X50.1XXA Overexertion from prolonged static or awkward postures, initial encounter; Y92.814 Boat as the place of occurrence of the external cause
CPT/HCPCS: 36415; 80053; 73562; 73706; 99284; 96374; 96375; 96376; 96372 ×2; J2270; J2405; J1885; J1170 ×2; Q9967

== ENCOUNTER → 2020-04-09 | Outpatient (CLI) | payer BC, MEDICARE ==
--- NOTE | 2020-04-09 10:51 | XR ---
EXAMINATION TYPE: XR chest 2V DATE OF EXAM: 04/09/2020 COMPARISON: 01/16/2017 TECHNIQUE: PA and lateral views submitted. HISTORY: MRI clearance FINDINGS: The lungs are clear and there is no pneumothorax, pleural effusion, or focal pneumonia. Postoperati ve changes are seen. No overt failure. Heart size normal. IMPRESSION: 1. Sternotomy wires and clips are seen. No definite epicardial lead.
== END | disposition home or self-care (01) ==
LOC: RADXRMAIN 10:31
PROVIDERS: ATTEND Orthopaedic Surgery Sports Medicine
DX: Z98.890 Other specified postprocedural states (principal)
CPT/HCPCS: 71046

== ENCOUNTER → 2021-08-06 | Outpatient (CLI) | payer MEDICARE ==
[2021-08-06 16:32] LABS: HCT 42.3 % (39.6-50.0); HGB 14.4 g/dL (13.0-17.0); MCH 33.1 pg (27.0-32.0); MCV 97.2 fL (80.0-97.0); Mean Platelet Volume 9.6 fL (9.5-12.2); Platelet Count 253 X 10*3/uL (140-440); RBC 4.35 X 10*6/uL (4.40-5.60); RDW 12.2 % (11.5-14.5)
[2021-08-07 20:16] LABS: African American GFR (CKD) 70.9 (60.0-200.0); BUN/Creat Ratio 16.28 Ratio (12.00-20.00); Blood Urea Nitrogen 19.7 mg/dL (9.0-27.0); Calcium 9.6 mg/dL (8.7-10.3); Carbon Dioxide 18.3 mmol/L (21.6-31.8); Non-African American GFR(CKD) 61.1 (60.0-200.0); Potassium 4.9 mmol/L (3.5-5.5)
== END | disposition home or self-care (01) ==
LOC: LABWHC1 10:27
PROVIDERS: ATTEND Internal Medicine Cardiovascular Disease
DX: I10 Essential (primary) hypertension (principal)
CPT/HCPCS: 36415; 80048; 84443; 85027

== ENCOUNTER 2021-10-16 00:12 | Emergency (ER) | payer MEDICARE ==
[2021-10-16] MEDS ORDERED: SODIUM CHLORIDE 0.9% 500 ML BAG ONE (01:42)
[2021-10-16] MEDS ORDERED: ONDANSETRON 4 MG/2 ML VIAL ONE (01:42)
[2021-10-16] MEDS ORDERED: SODIUM CHLORIDE 0.9% 1,000 ML BAG ONE (01:42)
[2021-10-16] MEDS ORDERED: HYDROmorphone 1 MG/ML 1 ML SYRINGE ONE (01:42)
[2021-10-16] MEDS ORDERED: DIAZEPAM 5 MG/ML 2 ML INJ ONE (01:42)
[2021-10-16] MEDS ORDERED: LORazepam 2 MG/ML INJ IV STA (03:28)
[2021-10-16] MEDS ORDERED: AMPICILLIN-SULBACTAM 3 GM in SODIUM CHLORIDE 0.9% 100 ML IVPB STA (03:28)
[2021-10-16] MEDS ORDERED: HYDROmorphone 1 MG/ML 1 ML SYRINGE IVP STA ×2 (03:28→03:29)
[2021-10-16 03:55] VITALS: RESP 20
[2021-10-16 04:27] LABS: ALT 34 U/L (4-49); AST 46 U/L (17-59); African American GFR (CKD) >90 (>60 ml/min/1.73 sqM); Albumin 3.6 g/dL (3.5-5.0); Alkaline Phosphatase 74 U/L (38-126); Anion Gap 8 mmol/L; Blood Urea Nitrogen 10 mg/dL (9-20); Calcium 9.2 mg/dL (8.4-10.2); Carbon Dioxide 20 mmol/L (22-30); Chloride 108 mmol/L (98-107); Glucose 114 mg/dL (74-99); Magnesium 1.8 mg/dL (1.6-2.3); Non-African American GFR(CKD) 89 (>60 ml/min/1.73 sqM); Phosphorus 1.9 mg/dL (2.5-4.5); Potassium 3.6 mmol/L (3.5-5.1); Sodium 136 mmol/L (137-145); Total Bilirubin 1.1 mg/dL (0.2-1.3); Total Protein 6.1 g/dL (6.3-8.2)
[2021-10-16 04:42] LABS: Basophils % (A) 0 %; Eosinophils # (A) 0.1 k/uL (0-0.7); Eosinophils % (A) 1 %; HCT 40.9 % (39.0-53.0); HGB 13.9 gm/dL (13.0-17.5); Lymphocytes # (A) 1.6 k/uL (1.0-4.8); Lymphocytes % (A) 15 %; MCH 34.3 pg (25.0-35.0); MCHC 34.1 g/dL (31.0-37.0); MCV 100.6 fL (80.0-100.0); Mean Platelet Volume 7.4; Monocytes # (A) 0.6 k/uL (0-1.0); Monocytes % (A) 6 %; Neutrophils % (A) 77 %; Platelet Count 251 k/uL (150-450); RBC 4.07 m/uL (4.30-5.90); RDW 13.3 % (11.5-15.5); WBC 10.4 k/uL (3.8-10.6)
[2021-10-16 04:50] LABS: Prothrombin Time 10.5 sec (9.0-12.0)
[2021-10-16 04:51] LABS: Partial Thromboplastin Time 21.7 sec (22.0-30.0)
[2021-10-16 06:09] VITALS: BP 131/78; PULSE 84; TEMP 97.9
--- NOTE | 2021-10-16 09:19 | CT ---
EXAM: CT Abdomen and Pelvis Without Intravenous Contrast CLINICAL HISTORY: post op pain, prostate removal TECHNIQUE: Axial computed tomography images of the abdomen and pelvis without intravenous contrast. CTDI is 9.37 mGy and DLP is 576.8 mGy-cm. This CT exam was performed using one or more of the following dose reduction techniques: automated exposure control, adjustment of the mA and/or kV according to patient size, and/or use of iterative reconstruction technique. COMPARISON: No relevant prior studies available. FINDINGS: Limitations: Lack of intravenous contrast. Lung bases: See below. Mediastinum: Small hiatal hernia. Mild atelectasis or scar. ABDOMEN: Liver: No significant abnormality. Gallbladder and bile ducts: No significant abnormality. No calcified stones. Pancreas: No significant abnormality. Spleen: No significant abnormality. Adrenals: No significant abnormality. Kidneys and ureters: Fluid attenuating left renal lesion, likely a cyst. No calcified renal or ureteral calculi. No hydronephrosis. Stomach and bowel: No significant abnormality. Bowel is nondilated. PELVIS: Appendix: No findings to suggest acute appendicitis. Bladder: Vega catheter is present in the decompressed urinary bladder. A linear area of gas in the superior wall of the urinary bladder (series 203, image 71) is concerning for perforation. Reproductive: Status post prostatectomy. Gas is present in the surgical bed. Subperitoneal space: Presacral edema. ABDOMEN and PELVIS: Intraperitoneal space: Intraperitoneal free air. No significant intraperitoneal free fluid. No loculated fluid collection. Retroperitoneal space: Retroperitoneal gas. Bones/joints: No acute fracture or malalignment. Soft tissues: Extensive soft tissue gas in the anterior abdominal wall. Vasculature: Aortic atherosclerosis. No abdominal aortic aneurysm. Lymph nodes: No significant abnormality. IMPRESSION: 1. Suspected perforation of the superior wall of the urinary bladder. Conventional or CT cystogram may be considered for further characterization. 2. Extensive gas in the anterior abdominal wall. Intraperitoneal and retroperitoneal gas is also noted. No abscess.
== END 2021-10-16 06:50 | disposition other institution (70) ==
LOC: EC 00:12
DX: K62.89 Other specified diseases of anus and rectum (principal); G89.18 Other acute postprocedural pain
CPT/HCPCS: 36415; 74176; 80053; 83735; 84100; 85025; 85610; 85730; 96365; 96366; 96375; 99284

== ENCOUNTER → 2022-02-17 | Outpatient (CLI) | payer MEDICARE | END | disposition home or self-care (01) | LOC: LABWHC1 11:24 | PROVIDERS: ATTEND Urology | DX: C61 Malignant neoplasm of prostate (principal) | CPT/HCPCS: 36415; 84153 ==

== ENCOUNTER → 2022-04-30 | Outpatient (CLI) | payer MEDICARE | END | disposition home or self-care (01) | LOC: RADMRIMAIN 10:27 | PROVIDERS: ATTEND Orthopaedic Surgery Sports Medicine | DX: M23.612 Other spontaneous disruption of anterior cruciate ligament of left knee (principal); M25.462 Effusion, left knee; S80.02XD Contusion of left knee, subsequent encounter; S83.92XD Sprain of unspecified site of left knee, subsequent encounter; X58.XXXD Exposure to other specified factors, subsequent encounter ==

== ENCOUNTER → 2022-06-17 | Outpatient (CLI) | payer MEDICARE ==
--- NOTE | 2022-06-17 07:28 | US ---
EXAMINATION TYPE: US abdomen complete DATE OF EXAM: 06/17/2022 COMPARISON: NONE CLINICAL HISTORY: R79.89, R73.01. abn labwork, no complaints of pain TECHNIQUE: Multiple sonographic images of the abdomen are obtained. FINDINGS: EXAM MEASUREMENTS: Liver Length: 15.7 cm Gallbladder Wall: 0.2 cm CBD: 0.4 cm Spleen: 9.4 cm Right Kidney: 10.2 x 4.8 x 5.4 cm Left Kidney: 11.6 x 6.0 x 5.8 cm HYDROELECTRIC STATION CHIEF NOTES: Pancreas: tail gassed out, wnl as seen Liver: wnl Gallbladder: wnl Evidence for sonographic Hayes's sign: no CBD: wnl Spleen: wnl Right Kidney: wnl Left Kidney: seen with a 5.3 x 4.8 x 4.4cm simple cyst at the upper pole Upper IVC: wnl Abd Aorta: wnl, some limitations due to overlying bowel gas The liver is homogenous. The intrahepatic portion of the IVC and proximal abdominal aorta are within normal limits. There is no evidence of cholelithiasis. Common bile duct is unremarkable. The visu alized portions of the pancreas are homogenous. The spleen is unremarkable. Kidneys are symmetric a nd free of hydronephrosis. IMPRESSION: No significant abnormality appreciated.
== END | disposition home or self-care (01) ==
LOC: RADUSWWP 06:49
PROVIDERS: ATTEND Internal Medicine
DX: R79.89 Other specified abnormal findings of blood chemistry (principal); R73.01 Impaired fasting glucose
CPT/HCPCS: 76700

== ENCOUNTER → 2023-10-20 | Outpatient (CLI) | payer MEDICARE ==
[2023-10-20 15:38] LABS: Basophils # (A) 0.04 X 10*3/uL (0.00-0.10); Basophils % (A) 0.5 %; Eosinophils # (A) 0.05 X 10*3/uL (0.04-0.35); Eosinophils % (A) 0.6 %; HGB 14.4 g/dL (13.0-17.0); Lymphocytes # (A) 2.15 X 10*3/uL (0.90-5.00); Lymphocytes % (A) 26.9 %; MCH 33.4 pg (27.0-32.0); MCHC 33.5 g/dL (32.0-37.0); MCV 99.8 FL (80.0-97.0); Mean Platelet Volume 8.9 FL (9.5-12.2); Monocytes # (A) 0.51 X 10*3/uL (0.20-1.00); Monocytes % (A) 6.4 %; NRBC Per 100 WBC 0 X 10*3/uL (0.00-0.01); Neutrophils % (A) 65.1 %; Platelet Count 238 X 10*3/uL (140-440); RBC 4.31 X 10*6/uL (4.40-5.60); RDW 12.3 % (11.5-14.5); WBC 7.99 X 10*3/uL (4.50-10.00)
[2023-10-20 15:58] LABS: ALT 32 U/L (10-49); AST 23 U/L (14-35); Albumin 4.3 g/dL (3.8-4.9); Albumin/Globulin Ratio 2.26 Ratio (1.60-3.17); Alkaline Phosphatase 74 U/L (41-126); Blood Urea Nitrogen 16.6 mg/dL (9.0-27.0); Calcium 9.3 mg/dL (8.7-10.3); Carbon Dioxide 22.7 mmol/L (21.6-31.8); Chloride 106 mmol/L (96-109); Globulin 1.9 g/dL (1.6-3.3); Glucose 80 mg/dL (70-110); LDL Cholesterol,Calculated 80.6 mg/dL (0.0-131.0); Potassium 4.1 mmol/L (3.5-5.5); Sodium 139 mmol/L (135-145); Total Bilirubin 0.5 mg/dL (0.3-1.2); Total Protein 6.2 g/dL (6.2-8.2); VLDL Calculation 10.38 mg/dL (5.00-40.00)
[2023-10-20 16:16] LABS: Prostate Specific Antigen <0.01 ng/mL (0.000-6.500)
== END | disposition home or self-care (01) ==
LOC: LABWHC1 10:29
PROVIDERS: ATTEND Urology
DX: C61 Malignant neoplasm of prostate (principal); I10 Essential (primary) hypertension; R73.01 Impaired fasting glucose
CPT/HCPCS: 36415; 80053; 80061; 83036; 84153; 84443; 85025

== ENCOUNTER → 2024-08-02 | Outpatient (CLI) | payer MEDICARE ==
[2024-08-02 10:59] LABS: Basophils # (A) 0.04 X 10*3/uL (0.00-0.10); Basophils % (A) 0.7 %; Eosinophils # (A) 0.11 X 10*3/uL (0.04-0.35); Eosinophils % (A) 1.9 %; HCT 42.6 % (39.6-50.0); HGB 14.8 g/dL (13.0-17.0); Lymphocytes # (A) 2.35 X 10*3/uL (0.90-5.00); Lymphocytes % (A) 40.5 %; MCH 33.9 pg (27.0-32.0); MCHC 34.7 g/dL (32.0-37.0); MCV 97.7 FL (80.0-97.0); Mean Platelet Volume 9.3 FL (9.5-12.2); Monocytes # (A) 0.58 X 10*3/uL (0.20-1.00); NRBC Per 100 WBC 0 X 10*3/uL (0.00-0.01); Neutrophils % (A) 46.6 %; Platelet Count 270 X 10*3/uL (140-440); RBC 4.36 X 10*6/uL (4.40-5.60); RDW 12.2 % (11.5-14.5)
[2024-08-02 11:16] LABS: ALT 35 U/L (10-49); AST 24 U/L (14-35); Albumin 4.3 g/dL (3.8-4.9); Albumin/Globulin Ratio 2.15 Ratio (1.60-3.17); Alkaline Phosphatase 79 U/L (41-126); Blood Urea Nitrogen 11.7 mg/dL (9.0-27.0); Calcium 9.3 mg/dL (8.7-10.3); Carbon Dioxide 25.6 mmol/L (21.6-31.8); Chloride 107 mmol/L (96-109); Chol/HDL Ratio 2.35 Ratio; Glucose 93 mg/dL (70-110); LDL Cholesterol,Calculated 73.2 mg/dL (0.0-131.0); Magnesium 2.1 mg/dL (1.5-2.4); Potassium 4.9 mmol/L (3.5-5.5); Sodium 141 mmol/L (135-145); Total Bilirubin 0.6 mg/dL (0.3-1.2); Total Protein 6.3 g/dL (6.2-8.2); VLDL Calculation 18.68 mg/dL (5.00-40.00)
== END | disposition home or self-care (01) ==
LOC: LABWHC1 07:13
PROVIDERS: ATTEND Internal Medicine
DX: I10 Essential (primary) hypertension (principal); I25.10 Atherosclerotic heart disease of native coronary artery without angina pectoris; E78.5 Hyperlipidemia, unspecified; R73.01 Impaired fasting glucose
CPT/HCPCS: 36415; 80053; 80061; 83036; 83735; 84443; 85025

== ENCOUNTER 2024-08-12 06:20 | Day surgery (SDC) | payer MEDICARE ==
[2024-08-12] MEDS ORDERED: ALPRAZolam 0.25 MG TAB PO PRN ×2 (06:38→18:26)
[2024-08-12] MEDS: IV FLUID CONTINUATION 1,000 ML IV ONE (06:53)
[2024-08-12] MEDS: SODIUM CHLORIDE 0.9% 1,000 ML in EMPTY BAG 1 BAG IV SCH (06:53)
[2024-08-12] MEDS: ALPRAZolam 0.5 MG TAB PO PRN (06:59)
[2024-08-12] MEDS: diphenhydrAMINE 50 MG CAP PO STA (07:04)
[2024-08-12] MEDS: ASPIRIN 325 MG TAB PO STA (07:09)
[2024-08-12] MEDS: methylPREDNISolone SOD SUCCI 125 MG/2 ML VIAL IVP ONE (07:40)
[2024-08-12] MEDS: HEPARIN SODIUM,PORCINE 10,000 UNIT in SODIUM CHLORIDE 0.9% 1,000 ML IRRIGATION PRN (07:43)
[2024-08-12] MEDS: HEPARIN SODIUM,PORCINE (1 ML) 2,500 UNIT in SODIUM CHLORIDE 0.9% 250 ML IRRIGATION PRN (07:43)
[2024-08-12] MEDS: LIDOCAINE 1% INJ 10MG/ML (20 ML MDV) SQ ONE (07:48)
[2024-08-12] MEDS: fentaNYL (PF) 50 MCG/ML 2 ML AMP IVP ONE (07:49)
[2024-08-12] MEDS: MIDAZOLAM 2 MG/2 ML VIAL IVP ONE (07:49)
[2024-08-12] MEDS: IOPAMIDOL-370 100ML BTL INJ ONE ×2 (08:07→08:33)
[2024-08-12] MEDS ORDERED: RX INFO: IV CONTRAST WAS GIVEN 1 EACH MISC MISCELLANE PRN (08:51)
[2024-08-12] MEDS: SODIUM CHLORIDE 0.9% 1,000 ML IV SCH (08:56)
--- NOTE | 2024-08-12 09:10 | CC ---
CARDIAC CATHETERIZATION REPORT INDICATION: Unstable angina in a patient with known CAD, status post prior bypass surgery with HU to LAD. PROCEDURE NOTE: After obtaining informed consent, left heart catheterization and coronary angiogram were performed via the right femoral artery using standard Stacy catheters. The patient tolerated the procedure well without any obvious immediate complications. Total sedation time was 25 minutes. A femoral angiogram will be performed, and if we are able to, we will do an Angio-Seal. FINDINGS: Hemodynamics: Left ventricular end-diastolic pressure is 16 to 18 mm. There is no significant gradient across the aortic valve. Left ventriculogram: Left ventriculogram is not performed. Angiographic data: 1. Right coronary artery: The right coronary artery is a large dominant vessel that shows mild nonobstructive disease in the proximal portion. 2. The left main is a short vessel, divides into a nondominant circumflex coronary artery and LAD. The LAD is totally occluded after the origin of large caliber diagonal branches. Diagonal branches themselves are free of significant disease. 3. Circumflex coronary artery shows a 95% ostial stenosis that goes all the way to the left main. HU to LAD is patent. Proximal and distal anastomotic sites are free of disease and the lumbee LAD is free of disease. CONCLUSIONS: Severe two-vessel coronary artery disease with patent HU to LAD. PLAN: I reviewed angiographic data with Dr. Hodge, the on-call clinical product manager, and we had a long discussion about doing angioplasty of circumflex coronary artery. He felt that angioplasty with stenting of the circumflex coronary artery can put the diagonal branches, which are much bigger and that is supplying a much larger territory in jeopardy, so we will treat the patient with medical therapy, and we will add Ranexa to what the patient is on, and if he continues to have symptoms, then consider a high-risk angioplasty. I discussed these issues at length with the patient, and he understands and is in agreement with the plans, but wants me to talk to his family also. MMODL / IJN: [id number] /
--- NOTE | 2024-08-12 09:19 | LTR ---
Dear Josef: I performed cardiac catheterization on Donaldo Russo. A detail catheterization note is enclosed for your records. Thank you for allowing me to participate in the care of this pleasant gentleman. Sincerely, MILAD / ARLENE: [id number] /
[2024-08-12] MEDS: NITROGLYCERIN SL TABS 0.4 MG TAB SUBLINGUAL PRN (12:11)
[2024-08-12] MEDS: NITROGLYCERIN OINT 1 INCH/GM PACKET TOPICAL STA (12:37)
[2024-08-12] MEDS: ACETAMINOPHEN TAB 325 MG TAB PO ONE (13:28)
[2024-08-12] MEDS ORDERED: SODIUM CHLORIDE 0.65% NASAL SPRAY 44 ML BTL INTRANASAL PRN (18:26)
[2024-08-12] MEDS: LOSARTAN 50 MG TAB PO SCH (21:19)
[2024-08-12] MEDS: lisinopriL 5 MG TAB PO SCH (21:19)
[2024-08-12] MEDS: METOPROLOL TARTRATE 25 MG TAB PO SCH (21:19)
[2024-08-13] MEDS: NITROGLYCERIN SL TABS 0.4 MG TAB SUBLINGUAL PRN (03:09)
[2024-08-13] MEDS: CLOPIDOGREL 75 MG TAB PO SCH (08:01)
[2024-08-13] MEDS: MULTIVITAMINS, THERA 1 EACH TAB PO SCH (08:02)
[2024-08-13] MEDS: ASPIRIN 81 MG PO SCH (08:02)
[2024-08-13] MEDS: LORATADINE 10 MG TAB PO SCH (08:03)
[2024-08-13] MEDS: ROSUVASTATIN CALCIUM 40 MG PO SCH (10:10)
[2024-08-13] MEDS: NON FORMULARY DRUG (Rosuvastatin Calcium [Rosuvastatin Calcium] 40 MG Tablet) PO SCH (10:14)
[2024-08-13 13:17] LABS: HCT 44.6 % (39.0-53.0); HGB 14.8 gm/dL (13.0-17.5); MCH 33.4 pg (25.0-35.0); MCHC 33.1 g/dL (31.0-37.0); Mean Platelet Volume 6.9; Platelet Count 282 k/uL (150-450); RBC 4.41 m/uL (4.30-5.90); RDW 12.5 % (11.5-15.5); WBC 12.1 k/uL (3.8-10.6)
[2024-08-13] MEDS: SODIUM CHLORIDE 0.9% 1,000 ML IV ONE (14:00)
[2024-08-13] MEDS: MIDAZOLAM 2 MG/2 ML VIAL IVP ONE ×3 (14:11→14:29)
[2024-08-13] MEDS: fentaNYL (PF) 50 MCG/ML 2 ML AMP IVP ONE ×2 (14:11→14:29)
[2024-08-13] MEDS: ASPIRIN 81 MG PO ONE (14:11)
[2024-08-13] MEDS: HEPARIN SODIUM,PORCINE 10,000 UNIT in SODIUM CHLORIDE 0.9% 1,000 ML IRRIGATION PRN (14:12)
[2024-08-13] MEDS: HEPARIN SODIUM,PORCINE (1 ML) 2,500 UNIT in SODIUM CHLORIDE 0.9% 250 ML IRRIGATION PRN (14:12)
[2024-08-13] MEDS: LIDOCAINE 1% INJ 10MG/ML (20 ML MDV) SQ ONE (14:15)
[2024-08-13] MEDS: VERAPAMIL SYRINGE (5 MG/10 ML) INTRAARTER ONE (14:15)
[2024-08-13] MEDS: HEPARIN SODIUM 1,000 UN/ML (10ML VL) IVP ONE (14:20)
[2024-08-13] MEDS: NITROGLYCERIN SL TABS 0.4 MG TAB SUBLINGUAL ONE (14:21)
[2024-08-13] MEDS: NITROGLYCERIN 1000MCG/10ML SYRINGE INTRACORON ONE (14:25)
[2024-08-13] MEDS: IOPAMIDOL-370 200ML BTL INJ ONE (14:50)
[2024-08-13] MEDS: ACETAMINOPHEN TAB 500 MG TAB PO PRN (15:31)
[2024-08-13] MEDS: ISOSORBIDE MONONITRATE ER 30 MG TAB.ER.24H PO SCH (20:49)
[2024-08-14 09:39] VITALS: RESP 20
[2024-08-14 11:36] VITALS: BP 132/80; PULSE 57; TEMP 97.6
--- NOTE | 2024-08-14 13:10 | P.DS ---
Providers Expected date of discharge: 08/14/24 Attending physician: Vishnu Villalobos Primary care physician: Josef [facility] Course: HPI: Patient is a pleasant 69-year-old male with significant past medical history of known CAD status post prior bypass surgery with HU to LAD who had been having worsening episodes of chest pain. He underwent left heart catheterization 08/12/[address] Peters which revealed circumflex coronary artery 95% ostial stenosis, HU to LAD is patent. He was attempted on medical therapy however he continued to have episodes of chest pain. Therefore he underwent PCI of circumflex by Dr. Hodge. Patient denies any further episodes of chest pain or pressure. He is ambulatory in the hallways. Denies any shortness of breath, dizziness, syncope. 08/14/2024 Doing well post procedure with no further episodes of chest pain. Reports HE with Imdur. PHYSICAL EXAMINATION: This is a 69-year-old male in no apparent distress at the time of my examination. HEENT: Head is atraumatic, normocephalic. Pupils are equal, round. Sclerae anicteric. Conjunctivae are clear. Mucous membranes of the mouth are moist. Neck is supple. There is no jugular venous distention. No carotid bruit is heard. CHEST EXAMINATION: Lungs are clear to auscultation. No chest wall tenderness is noted on palpation or with deep breathing. HEART EXAMINATION: Heart regular rate and rhythm. S1, S2 heard. No murmurs, gallops or rub. ABDOMEN: Soft, nontender. Bowel sounds are heard. EXTREMITIES: 2+ peripheral pulses with no evidence of peripheral edema and no calf tenderness noted. Right radial site with no redness, swelling, or drainage. NEUROLOGIC EXAMINATION: Patient is awake, alert and oriented x3. IMPRESSION AND PLAN: CAD status post CABG, status post most recent PCI of circumflex 08/13/2024 Chest pain Hyperlipidemia PLAN: OK to stop Imdur. Monitor symptoms. Continue with dual antiplatelet therapy with aspirin and Plavix. Discuss medications with Dr. Villalobos, advised Lisinopril and Losartan are not typically given together. Follow-up in office with Dr. Peters in 1 week. I am dictating on behalf of Dr. Christopher Hodge's history/physical and assessment/plan. Patient Condition at Discharge: Good Plan - Discharge Summary Discharge Rx Participant: No New Discharge Prescriptions: New Nitroglycerin Sl Tabs [Nitrostat] 0.4 mg SUBLINGUAL Q5M PRN #100 tab PRN Reason: Chest Pain Continue Cetirizine HCl [Zyrtec] 10 mg PO DAILY ALPRAZolam [Xanax] 0.25 mg PO TID PRN PRN Reason: Anxiety Nitroglycerin Sl Tabs [Nitrostat] 0.4 mg SUBLINGUAL Q5M PRN PRN Reason: Chest Pain Saline Nasal [place] 1 spray EA NOSTRIL DAILY PRN PRN Reason: Allergy Symptoms Multivitamin [Men's Multi-Vitamin] 1 tab PO DAILY Clopidogrel [Plavix] 75 mg PO DAILY #30 tab lisinopriL [Zestril] 5 mg PO HS #30 tab Aspirin [Children's Aspirin] 1 tab PO DAILY Metoprolol Tartrate [Lopressor] 25 mg PO BID Losartan Potassium 100 mg PO HS Rosuvastatin Calcium 40 mg PO DAILY Discontinued Isosorbide Mononitrate [Isosorbide Mononitrate ER] 30 mg PO DAILY Discharge Medication List Cetirizine HCl [Zyrtec] 10 mg PO DAILY 05/15/16 [History] ALPRAZolam [Xanax] 0.25 mg PO TID PRN 01/06/17 [History] Nitroglycerin Sl Tabs [Nitrostat] 0.4 mg SUBLINGUAL Q5M PRN 01/06/17 [History] Multivitamin [Men's Multi-Vitamin] 1 tab PO DAILY 01/07/17 [History] Saline Nasal [place] 1 spray EA NOSTRIL DAILY PRN 01/07/17 [History] Clopidogrel [Plavix] 75 mg PO DAILY #30 tab 01/12/17 [Rx] lisinopriL [Zestril] 5 mg PO HS #30 tab 01/12/17 [Rx] Aspirin [Children's Aspirin] 1 tab PO DAILY 08/10/24 [History] Losartan Potassium 100 mg PO HS 08/10/24 [History] Metoprolol Tartrate [Lopressor] 25 mg PO BID 08/10/24 [History] Rosuvastatin Calcium 40 mg PO DAILY 08/10/24 [History] Nitroglycerin Sl Tabs [Nitrostat] 0.4 mg SUBLINGUAL Q5M PRN #100 tab 08/12/24 [Rx] Follow up Appointment(s)/Referral(s): Vishnu Villalobos MD [STAFF PHYSICIAN] - 08/19/24 9:30 am Patient Instructions/Handouts: *Surgery [facility] - After Heart Catheterization - Patient Support Tech Instructions, Moderate Sedation (DC), Left Heart Catheterization (DC) Activity/Diet/Wound Care/Special Instructions: No lifting/pushing/pulling greater than 10 lbs for 3 days. Avoid frequent use of full flight of stairs for 3 days. You may shower tomorrow. No prolonged soaking of puncture site for 3 days (such as swim or tub). You may drive Thursday. Take Isosorbide (Imdur) at bedtime & try taking tylenol about 30 mins prior (hopefully to avoid headache). Discharge Disposition: HOME SELF-CARE
--- NOTE | 2024-08-14 22:43 | P.PRCINT ---
Percutaneous Coronary Int. - Percutaneous Coronary Intervention Percutaneous Coronary Intervention: PROCEDURES PERFORMED: Left coronary angiography, ultrasound guided arterial access, PCI of ostial circumflex with a 3.0 x 8mm Xience LUIS INDICATION: CAD with unstable angina, NYHA class IV symptoms CONSENT:I have discussed the risks, benefits and alternative therapies for the above-mentioned procedure and for both sedation/analgesia as well as necessary blood product administration, if indicated, as they pertain to this patient. The patient has indicated understanding and acceptance of the risks and procedures discussed. PROCEDURE: After the risks, benefits and alternatives of the above mentioned p rocedure explained in detail with the patient, informed consent was obtained. Patient was taken to the catheterization lab and prepped and draped in usual fashion. Ultrasound guidance was used to assess for arterial access. 1% lidocaine was used to anesthetize the right radial artery. A 6-Turkmen sheath was placed in the right radial artery using modified Seldinger technique and ultrasound guidance. Patient had previous diagnostic catheterization one day prior with an initial recommendations for medical therapy giving possible risk of involvement of the left main and LAD/on revascularized diagonal branch. Patient however had recurrent episodes of chest discomfort with typical angina at rest despite antianginal medications. Therefore recommended to proceed with PCI. All risks and benefits were explained. Heparin was given. A 6-Turkmen CLS 4.0 guide was used to engage the left main. A 0.014 BMW wire was advanced into the diagonal branch/LAD. An additional 0.014 BMW wire was advanced into the circumflex. Predilatation was performed with a 2.5 x 12 mm balloon. Next predilation was performed again with a 2.75 x 8 noncompliant balloon. A 3.0 x 8 mm Xience LUIS was placed at the origin of the circumflex without any compression of the LAD. Final angiograms were performed. Preintervention there was 99% stenosis and JUAQUIN 3 flow and post intervention there was <10% stenosis and JUAQUIN 3 flow. The right radial sheath was removed and a TR band was placed with hemostasis achieved. The patient tolerated the procedure well. Patient was transported back to the post catheterization holding area in stable condition. Conscious Sedation: Patient was monitored under the direct supervision of myself for conscious sedation using Versed and fentanyl for a total duration of 28 minutes HEMODYNAMICS: Ao: 134/81 SELECTIVE CORONARY ARTERIOGRAPHY: LEFT MAIN: The left main is a large caliber vessel which bifurcates into the LAD and circumflex. There is no significant stenosis. LEFT ANTERIOR DESCENDING CORONARY ARTERY: LAD is a large caliber vessel which wraps around to the apex. There is 100% stenosis of the mid LAD after a moderate to large caliber diagonal 1 branch. LEFT CIRCUMFLEX CORONARY ARTERY: Left circumflex is a moderate caliber vessel with an ostial 99% stenosis and otherwise mild luminal irregularities. RIGHT CORONARY ARTERY: The right coronary artery was not imaged FINAL IMPRESSION: 1. CAD as described above including 100% mid LAD stenosis and 99% proximal circumflex stenosis 2. S/p PCI of ostial circumflex with a 3.0 x 8mm Xience LUIS PLAN: 1. Aggressive risk factor modification per most recent ACC/AHA guidelines. 2. Continue usual antiplatelets with aspirin and Plavix for 12 months given unstable angina symptoms.
== END 2024-08-14 12:33 | disposition home or self-care (01) ==
LOC: CATHCVL 06:20 → 3SCARD 08:16 → CATHCVL 08-14 12:33
PROVIDERS: ATTEND Internal Medicine Cardiovascular Disease
DX: I20.0 Unstable angina
CPT/HCPCS: 85027; 93459

== ENCOUNTER → 2024-10-17 | Outpatient (CLI) | payer MEDICARE | END | disposition home or self-care (01) | LOC: LABWHC1 12:55 | PROVIDERS: ATTEND Urology | DX: C61 Malignant neoplasm of prostate (principal) | CPT/HCPCS: 36415; 84153 ==